=== PATIENT | male | born 1945 | race African-American/Black ===

== ENCOUNTER 2020-06-28 09:36 | Outpatient (REF) | payer MEDICARE, SELFPAY ==
[2020-06-28 10:28] LABS: MANUAL DIFF FLAG NO
[2020-06-28 10:42] LABS: Basophils Percent Auto 0.3 % (0-2); Eosinophils Absolute Auto 0.1 X10*3/uL (0.0-0.4); Eosinophils Percent Auto 1.8 % (0-4); Hematocrit 44.7 % (42-52); Hemoglobin 14.5 g/dl (14.0-18.0); Imm Gran Abs Auto 0.06 X10*3/uL (0.00-0.03); Imm Gran Pct Auto 0.8 % (0.0-0.4); Lymphocytes Absolute Auto 1.6 X10*3/uL (1.2-4.9); Lymphocytes Percent Auto 22.3 % (20-40); Mean Corpuscular HGB Conc 32.4 g/dl (31.0-36.0); Mean Corpuscular Hemoglobin 28.3 pg (27.0-33.0); Mean Corpuscular Volume 87.1 fL (80-98); Mean Platelet Volume 10.3 fL (9.4-12.4); Monocytes Absolute Auto 0.8 X10*3/uL (0.1-1.2); Monocytes Percent Auto 10.3 % (2-11); Neutrophils Absolute Auto 4.7 X10*3/uL (2.0-8.3); Neutrophils Percent Auto 64.5 % (45-73); Platelet Count 173 X10*3/uL (160-400); Red Blood Count 5.13 X10*6/uL (4.60-5.80); Red Cell Distribution Width 14.2 % (11.0-16.0); White Blood Count 7.4 X10*3/uL (4.8-10.8)
[2020-06-28 11:01] LABS: Glucose Urine UA NEG (NEG); Leukocyte Esterase Urine NEG (NEG); Nitrite Urine NEG (NEG); PH 6.5 (5.0-8.0); Urine Blood TRACE (NEG); Urine Ketones NEG (NEG); Urine Protein NEG (NEG-TRACE)
[2020-06-28 11:08] LABS: Appearance Urine CLEAR; Color Urine YELLOW
[2020-06-28 11:26] LABS: Squamous Epithelial Cell Urine TRACE /LPF; WBC Urine 0 /HPF (0-4)
[2020-06-28 11:29] LABS: Alanine Aminotransferase 20 U/L (0-40); Albumin Level 4.3 g/dL (3.5-5.0); Alkaline Phosphatase 71 U/L (39-117); Anion Gap 11 (12-20); Aspartate Amino Transferase 14 U/L (5-37); Bilirubin Total 1.4 mg/dL (0.0-1.0); Blood Urea Nitrogen 13 mg/dL (9-16); Calcium 9.5 mg/dL (8.4-10.2); Carbon Dioxide 27 mmol/L (22-29); Chloride 109 mmol/L (96-108); Cholesterol 155 mg/dL; Estimated Glomerular Filt Rate > 60; Glucose Fasting 173 mg/dL (60-99); HDL Cholesterol 45 mg/dL; LDL Cholesterol Calculated 94 mg/dl; Potassium 4.3 mmol/L (3.3-5.1); Sodium 143 mmol/L (135-145); Total Protein 7.2 g/dL (6.5-8.0); Triglycerides 84 mg/dL
[2020-06-28 11:55] LABS: Estimated Average Glucose 169 mg/dL; Hemoglobin A1c % 7.5 %
[2020-06-28 11:57] LABS: Creatinine Urine 163.22 mg/dL; Microalbum/Creatinine Ratio Ur 8.5 ug/mg cr
== END 2020-06-28 09:37 | disposition home or self-care (01) ==
LOC: HO.LNP 09:36
PROVIDERS: PCP Internal Medicine; Visit Provider Internal Medicine
DX: Z00.00 Encounter for general adult medical examination without abnormal findings (principal); I10 Essential (primary) hypertension; E11.9 Type 2 diabetes mellitus without complications; D50.9 Iron deficiency anemia, unspecified
CPT/HCPCS: 80053; 80061; 81001; 81003; 82043; 83036; 84153; 85025

== ENCOUNTER 2020-08-14 10:25 | Outpatient (REF) | payer MEDICARE, SELFPAY ==
--- NOTE | ~2020-08-14 | US_ITS ---
EXAMINATION: US RETROPERITONEAL LIMITED (RENAL ONLY) CLINICAL INFORMATION: Kidney cyst. COMPARISON: CT abdomen pelvis 03/17/2017. Ultrasound abdomen 02/17/2017 and ultrasound renal 08/21/2016. TECHNIQUE: Real-time imaging of the kidneys. FINDINGS: RIGHT KIDNEY: 11.5 x 6.01 x 5.2 cm (SAG x AP x TRV). The kidney is normal in size, contour, and echogenicity. Renal cortical thickness is normal. No calculi or focal parenchymal lesions. No hydronephrosis. LEFT KIDNEY: 11.7 x 6.6 x 4.6 cm (SAG x AP x TRV). The kidney is normal in size, contour, and echogenicity. Renal cortical thickness is normal. There are 3 left renal simple cysts appreciated by ultrasound, measuring 4.1 x 3.7 x 3.9 cm in the upper pole, 1.1 x 1.2 x 1.4 cm in the midpole and 1.7 x 1 x 1.6 cm in the lower pole. No renal calculi or hydronephrosis. US/US renal BI IMPRESSION: Left renal simple cysts. Normal right kidney.
== END 2020-08-14 10:26 | disposition home or self-care (01) ==
LOC: HO.US 10:25
PROVIDERS: PCP Internal Medicine; Visit Provider Internal Medicine
DX: N28.1 Cyst of kidney, acquired (principal)
CPT/HCPCS: 76775

== ENCOUNTER 2020-09-12 07:51 | Outpatient (REF) | payer MEDICARE, SELFPAY ==
--- NOTE | ~2020-09-12 | US_ITS ---
EXAMINATION: US ABDOMEN COMPLETE CLINICAL INFORMATION: Liver fibrosis, hepatitis C. COMPARISON: Bilateral renal ultrasound dated 08/14/2020. CT abdomen and pelvis without and with contrast dated 03/17/2017. Ultrasound abdomen complete dated 02/17/2017. TECHNIQUE: Real-time imaging of the abdominal viscera. FINDINGS: PANCREAS: Normal. ABDOMINAL AORTA: The proximal and distal segments are normal in caliber. INFERIOR VENA CAVA: Visualized portions are normal. LIVER: The liver is normal in size. The liver contour is normal. The liver is increased in echogenicity. No focal hepatic lesion. There is no intrahepatic biliary duct dilatation seen. GALLBLADDER: The gallbladder is physiologically distended. Multiple mobile gallstones are present. No evidence of gallbladder wall thickening or pericholecystic fluid. COMMON BILE DUCT: Normal in caliber measuring 0.3 cm in diameter. RIGHT KIDNEY: Normal. No hydronephrosis. No renal calculi or focal parenchymal lesions. The kidney measures 11.3 cm in maximum dimension. LEFT KIDNEY: There is an anechoic cyst in the upper pole measuring 4.4 x 3.7 x 3.7 cm, complex cyst midpole measuring 4.4 x 4.9 x 5.0 cm and midpole measuring 1.3 x 1.2 x 1.1 cm. No hydronephrosis or renal calculi. The kidney measures 13.1 cm in maximum dimension. SPLEEN: There is an accessory splenule measuring 2.4 x 2.3 x 2.2 cm. The spleen measures 10.6 cm in maximum dimension. FREE FLUID: None. US/US abdomen complete IMPRESSION: Cholelithiasis. Left renal simple and complex cysts. No echogenic renal calculi or hydronephrosis. Mild hepatic steatosis. Small accessory splenule at the splenic hilum.
[2020-09-13 13:20] LABS: Alpha Fetoprotein 3.7 ng/mL (<6.1)
[2020-09-15 15:36] LABS: HCV Log PCR <1.18 NOT DETECTED Log IU/mL (NOT DETECTED); HepC Viral Load <15 NOT DETECTED IU/mL (NOT DETECTED)
== END 2020-09-12 07:52 | disposition home or self-care (01) ==
LOC: HO.US 07:51
PROVIDERS: Visit Provider Internal Medicine
DX: K74.00 Hepatic fibrosis, unspecified (principal); Z86.19 Personal history of other infectious and parasitic diseases
CPT/HCPCS: 36415; 76700; 82105; 85610; 87522

== ENCOUNTER 2020-09-24 08:46 | Day surgery (SDC) | payer MEDICARE, SELFPAY ==
[2020-09-17 09:50] VITALS: BMI 38.1
[2020-09-24 09:00] VITALS: BP 165/94; PULSE 79; RESP 18; TEMP 36.7; O2SAT 98
[2020-09-24 09:11] VITALS: BMI 36.1
[2020-09-24 09:29] LABS: Glucose, Whole Blood 152 mg/dL (60-115)
--- NOTE | 2020-09-24 09:42 | P.CONAN_ITS ---
[facility] Past Medical History Medical History (Updated 09/17/20 @ 09:50 by Montserrat Echeverria) Diabetes Hepatitis C HTN (hypertension) Liver fibrosis Surgical History Surgical History (Updated 09/17/20 @ 09:51 by Montserrat Echeverria) H/O colonoscopy History of esophagogastroduodenoscopy (EGD) History of total left knee replacement Hx of cataract extraction Hx of rotator cuff surgery Social History Social History Advance Directives: No Advance Directives Information Provided: Yes Meds Allergies Allergy/AdvReac Type Severity Reaction Status Date / Time No Known Allergies Allergy Unverified 10/27/19 16:53 [No Known Allergies*] Active Medications: Current Medications Generic Name Dose Route Start Last Admin Trade Name Freq PRN Reason Stop Dose Admin Sodium Biphosphate/Sodium Phosphate 133 ml 09/24/20 08:48 Sodium Phosphate,Dyer-Dibasic 133 Ml Enema NE ONCE PRN Poor Colonoscopy Prep Results Home Medications Medication Instructions Recorded Confirmed Last Taken Type brimonidine 0.2 % eye drops 1 drp OPHTHALMIC (EYE) BID 09/17/20 09/17/20 Unknown History metformin 500 mg tablet 1 tab PO TID 09/17/20 09/17/20 Unknown History valsartan 320 1 tab PO DAILY 09/17/20 09/17/20 Unknown History mg-hydrochlorothiazide 12.5 mg tablet Exam Exam Date and Time: September 24, 202042 Height,Weight and Vital Signs: Height 6 ft 5 in Weight 138.346 kg Last Vital Signs Temp 98.1 F 09/24/20 09:00 Pulse 79 09/24/20 09:00 Resp 18 09/24/20 09:00 BP 165/94 H 09/24/20 09:00 Pulse Ox 98 09/24/20 09:00 Pertinent Lab Results Pertinent Lab Results: Laboratory Tests 09/24/20 09:10 POC Glucose 152 H Airway Heart: RRR Lungs: CTA
[2020-09-24] MEDS: Lactated Ringers 1,000 ML 50 ML IVCONT (09:43)
[2020-09-24 11:31] VITALS: BP 99/55; PULSE 70; RESP 16; TEMP 36.7; O2SAT 98
--- NOTE | 2020-09-24 11:33 | P.BOP_ITS ---
Brief Operative Note Date of Service: 09/24/20 Pre-op diagnosis: Screening Post-op diagnosis: other (Colon polyps) Procedure: Colonoscopy to the cecum with snare polypectomy, and bx/removal of polyp Surgeon: Cooper Stark Anesthesia: MAC Was an Investment Underwriter used for this Procedure?: No Estimated blood loss (mL): 3.0 Pathology: other (A. Cecal polyps B. Ascending colon polyp C. Transverse colon polyps D. Polyp at 50cm) Condition: stable Disposition: PACU
[2020-09-24 11:36] VITALS: BP 114/73; PULSE 74; RESP 16; TEMP 36.8; O2SAT 98
[2020-09-24 11:41] VITALS: BP 127/84; PULSE 76; RESP 16; TEMP 36.8; O2SAT 98
--- NOTE | 2020-09-24 13:48 | OP_ITS ---
SURGEON: Cooper Stark MD INDICATIONS: The patient presents for evaluation of colorectal cancer screening and personal history of tubular adenoma of the colon. Full consent has been obtained from him for this, including risks of bleeding and perforation. PREOPERATIVE DIAGNOSIS: POSTOPERATIVE DIAGNOSIS: PROCEDURE PERFORMED: Colonoscopy to cecum and terminal ileum with snare polypectomy, and biopsy and removal of polyp. ESTIMATED BLOOD LOSS: COMPLICATIONS: ANESTHESIA: Monitored anesthesia care. ASSISTANTS: SPECIMENS: PREOPERATIVE DIAGNOSES: Colorectal cancer screening and personal history of tubular adenoma of the colon. POSTOPERATIVE DIAGNOSES: Colorectal cancer screening and personal history of tubular adenoma of the colon, colon polyps, diverticulosis, and internal hemorrhoids. DESCRIPTION OF PROCEDURE: The patient was placed in the left lateral decubitus position. The digital rectal exam revealed no abnormalities. The Olympus video pediatric colonoscope was entered into the rectum and advanced easily to the cecum. Once in the cecum, I did identify cecal pouch with appendiceal orifice and a normal-appearing ileocecal valve. The terminal ileum was cannulated and appeared normal. The scope was withdrawn back in the colon. The entire cecum was well visualized. In the cecum, were 2 approximately 8 to 10 mm polyps, which were each snared and recovered by suction. The polypectomy sites appeared clean, without any sign of residual polyp nor bleeding. Also, in the cecum, was a 3 mm polyp, which was biopsied and completely removed with cold biopsy forceps and placed in the same container as the other 2 larger polyps. The scope was then slowly withdrawn assessing all mucosal surfaces carefully. Preparation was excellent. In the ascending colon, transverse colon, and at 50 cm, were approximately 8 to 10 mm polyps, which were each snared and recovered by suction. All of the polypectomy sites appeared clean, without any sign of residual polyp nor bleeding. I did not visualize any other polyps, colitis, nor angiodysplasia. There was a mild amount of sigmoid diverticulosis. In the rectum, scope was retroflexed visualizing small internal hemorrhoids, but no other pathology. The rectal mucosa appeared normal. The scope was straightened out and withdrawn from the patient. He tolerated the procedure well and was returned to the recovery area in stable condition. IMPRESSION: 1. Colon polyps, status post snare polypectomy, and biopsy and removal. 2. Diverticulosis. 3. Internal hemorrhoids. PLAN: The results of the pathology will be checked. I would recommend a repeat colonoscopy in 5 years for further screening. He was advised not to use any aspirin nor NSAIDs for 1 week. I did recommend he see me in 1 year for followup office visit in regard to the previous history of hepatitis C. MD EVA Santiago/EFRAÍN / [phone]
== END 2020-09-24 12:19 | disposition home or self-care (01) ==
PROVIDERS: PCP Internal Medicine; Visit Provider Internal Medicine
PROC: 0DJD8ZZ Inspection of Lower Intestinal Tract, Via Natural or Artificial Opening Endoscopic (ICD-10-PCS; CPT 45378; principal; 2020-09-24 10:10)
DX: Z12.11 Encounter for screening for malignant neoplasm of colon (principal); Z86.010 Personal history of colon polyps; D12.0 Benign neoplasm of cecum; D12.2 Benign neoplasm of ascending colon; D12.3 Benign neoplasm of transverse colon; D12.5 Benign neoplasm of sigmoid colon; K57.30 Diverticulosis of large intestine without perforation or abscess without bleeding; K64.8 Other hemorrhoids; K74.00 Hepatic fibrosis, unspecified; I10 Essential (primary) hypertension; E11.40 Type 2 diabetes mellitus with diabetic neuropathy, unspecified; Z79.84 Long term (current) use of oral hypoglycemic drugs; Z79.899 Other long term (current) drug therapy; Z86.19 Personal history of other infectious and parasitic diseases
CPT/HCPCS: 45385; 45380; 82947; 88305

== ENCOUNTER 2021-06-27 11:03 | Outpatient (REF) | payer MEDICARE, SELFPAY ==
[2021-06-27 11:08] LABS: MANUAL DIFF FLAG NO
[2021-06-27 11:47] LABS: Basophils Percent Auto 0.5 % (0-2); Eosinophils Absolute Auto 0.2 X10*3/uL (0.0-0.4); Eosinophils Percent Auto 1.8 % (0-4); Hematocrit 45.3 % (42.0-52.0); Hemoglobin 14.7 g/dl (14.0-18.0); Imm Gran Abs Auto 0.03 X10*3/uL (0.00-0.03); Imm Gran Pct Auto 0.4 % (0.0-0.4); Lymphocytes Percent Auto 24.2 % (20-40); Mean Corpuscular HGB Conc 32.5 g/dl (31.0-36.0); Mean Corpuscular Hemoglobin 28.5 pg (27.0-33.0); Mean Platelet Volume 10.2 fL (9.4-12.4); Monocytes Absolute Auto 0.5 X10*3/uL (0.1-1.2); Monocytes Percent Auto 6.2 % (2-11); Neutrophils Absolute Auto 5.6 x10*3/uL (2.0-8.3); Neutrophils Percent Auto 66.9 % (45-73); Platelet Count 211 X10*3/uL (160-400); Red Blood Count 5.15 X10*6/uL (4.60-5.80); Red Cell Distribution Width 14.2 % (11.0-16.0); White Blood Count 8.3 X10*3/uL (4.8-10.8)
[2021-06-27 11:56] LABS: Estimated Average Glucose 189 mg/dL; Hemoglobin A1c % 8.2 %
[2021-06-27 11:57] LABS: Appearance Urine CLEAR; Color Urine YELLOW; Glucose Urine UA NEG (NEG); Leukocyte Esterase Urine NEG (NEG); Nitrite Urine NEG (NEG); PH 5.5 (5.0-8.0); Specific Gravity - Urine >= 1.030 (1.005-1.025); Urine Blood 1+ (NEG); Urine Ketones NEG (NEG); Urine Protein NEG (NEG-TRACE)
[2021-06-27 12:01] LABS: Alanine Aminotransferase 15 U/L (0-40); Albumin Level 4.4 g/dL (3.5-5.0); Alkaline Phosphatase 71 U/L (39-117); Anion Gap 12 (12-20); Aspartate Amino Transferase 14 U/L (5-37); Bilirubin Total 2.1 mg/dL (0.0-1.0); Blood Urea Nitrogen 12 mg/dL (9-16); Calcium 9.6 mg/dL (8.4-10.2); Carbon Dioxide 26 mmol/L (22-29); Chloride 107 mmol/L (96-108); Estimated Glomerular Filt Rate > 60; Glucose Fasting 182 mg/dL (60-99); Iron 122 mcg/dL (45-160); Percent Iron Saturation 41 % (15-50); Sodium 141 mmol/L (135-145); Total Iron Binding Capacity 295 mcg/dL (228-428); Total Protein 7.5 g/dL (6.5-8.0); Unsaturated Iron Binding 173 ug/dL
[2021-06-27 12:14] LABS: Mucus Urine 2+ /LPF; PSA,Total (Free>4and<10) 0.28 ng/mL (0.00-4.00); Squamous Epithelial Cell Urine TRACE /LPF; WBC Urine 0-2 /HPF (0-4)
[2021-06-27 12:22] LABS: Creatinine Urine 217.74 mg/dL; Microalbum/Creatinine Ratio Ur 6.4 ug/mg cr
== END 2021-06-27 11:04 | disposition home or self-care (01) ==
LOC: HO.LNP 11:03
PROVIDERS: Visit Provider Internal Medicine
DX: Z00.00 Encounter for general adult medical examination without abnormal findings (principal); Z12.5 Encounter for screening for malignant neoplasm of prostate; E11.9 Type 2 diabetes mellitus without complications; I10 Essential (primary) hypertension; D50.9 Iron deficiency anemia, unspecified
CPT/HCPCS: 80053; 81001; 82043; 83036; 83540; 84153; 85025

== ENCOUNTER 2021-08-15 15:28 | Outpatient (REF) | payer MEDICARE, SELFPAY ==
[2021-08-15 15:36] LABS: Appearance Urine CLEAR; Color Urine YELLOW; Glucose Urine UA 100 MG/DL (NEG); Leukocyte Esterase Urine NEG (NEG); Nitrite Urine NEG (NEG); Specific Gravity - Urine 1.015 (1.005-1.025); Urine Blood NEG (NEG); Urine Ketones NEG (NEG); Urine Protein NEG (NEG-TRACE)
[2021-08-15 16:42] LABS: RBC Urine 0-2 /HPF (0); WBC Urine 0-2 /HPF (0-4)
[2021-08-15 16:43] LABS: Mucus Urine TRACE /LPF
== END 2021-08-15 15:29 | disposition home or self-care (01) ==
LOC: HO.LNP 15:28
PROVIDERS: Visit Provider Internal Medicine
DX: R31.9 Hematuria, unspecified (principal)
CPT/HCPCS: 81001

== ENCOUNTER 2021-09-24 11:30 | Outpatient (REF) | payer MEDICARE, SELFPAY ==
--- NOTE | ~2021-09-24 | US_ITS ---
EXAMINATION: US RETROPERITONEAL LIMITED (RENAL ONLY) CLINICAL INFORMATION: Renal cysts. COMPARISON: US abdomen complete 09/12/2020. US retroperitoneal limited (renal only) 08/14/2020. CT abdomen and pelvis without and with contrast 03/17/2017. TECHNIQUE: Real-time imaging of the kidneys. FINDINGS: RIGHT KIDNEY: 13.1 x 6.0 x 7.1 cm (SAG x AP x TRV). The kidney is normal in size, contour, and echogenicity. Renal cortical thickness is normal. No calculi or focal parenchymal lesions. No hydronephrosis. LEFT KIDNEY: 13.7 x 6.0 x 6.5 cm (SAG x AP x TRV). The kidney is normal in size, contour, and echogenicity. Renal cortical thickness is normal. No renal calculi or hydronephrosis. Left renal cysts are without significant change as follows. Upper pole exophytic simple cyst measures 4.3 x 4.3 x 4.0 cm. -Prior measurements ultrasound 2020, 4.4 x 3.7 x 3.7 cm. -Prior CT measurements 2018, 4.1 x 4.3 x 4.3 cm. Interpolar exophytic Bosniak 2 complicated cyst with fine avascular internal septation measures 4.7 x 4.5 x 4.1 cm. No interval solid component or septation thickening. No color flow. -Prior measurements ultrasound 2020, 4.4 x 4.9 x 5.0 cm. -Prior CT measurements 2018, 5.0 x 4.0 x 4.4 cm. Interpolar simple cyst 1.4 x 1.3 x 2.0 cm. -Prior measurements ultrasound 2020, 1.3 x 1.2 x 1.1 cm. -Prior CT measurements 2018, 0.9 x 0.9 x 1.4 cm. US/US renal BI IMPRESSION: Right: -No hydronephrosis, calculi, or parenchymal lesion. Left: -No hydronephrosis or calculi. -Left renal cysts are without significant change from prior studies.
== END 2021-09-24 11:31 | disposition home or self-care (01) ==
LOC: HO.HMGCX 11:30
PROVIDERS: PCP Internal Medicine; Visit Provider Internal Medicine
DX: N28.1 Cyst of kidney, acquired (principal)
CPT/HCPCS: 76775

== ENCOUNTER 2021-11-11 12:04 | Outpatient (REF) | payer MEDICARE, SELFPAY ==
[2021-11-11 12:33] LABS: Appearance Urine Clear; Color Urine Yellow; Glucose Urine UA Negative (Negative); Leukocyte Esterase Urine Negative (Negative); Nitrite Urine Negative (Negative); Urine Blood Negative (Negative); Urine Ketones Negative (Negative); Urine Protein Negative (Neg-Trace)
[2021-11-11 12:41] LABS: Bacteria Urine None Seen (None Seen); Hyaline Casts Urine 0-2 /LPF (0-2); RBC Urine 0-2 /HPF (0-2); Squamous Epithelial Cell Urine 0-2 /HPF (0-2); WBC Urine 0-5 /HPF (0-5)
== END 2021-11-11 12:05 | disposition home or self-care (01) ==
LOC: HO.LNP 12:04
PROVIDERS: Visit Provider Internal Medicine
DX: R31.9 Hematuria, unspecified (principal)
CPT/HCPCS: 81001

== ENCOUNTER 2022-04-14 09:00 | Outpatient (RCR) | payer MEDICARE, SELFPAY ==
[2022-04-11 09:08] VITALS: BP 150/90
== END 2022-04-24 09:48 | disposition home or self-care (01) ==
LOC: HO.PT 09:00
PROVIDERS: PCP Internal Medicine; Visit Provider Internal Medicine
DX: H83.03 Labyrinthitis, bilateral (principal)
CPT/HCPCS: 95992; 97161

== ENCOUNTER 2022-08-18 10:51 | Outpatient (REF) | payer MEDICARE, SELFPAY | END 2022-08-18 10:52 | disposition home or self-care (01) | LOC: HO.LNP 10:51 | PROVIDERS: Visit Provider Internal Medicine | DX: Z00.00 Encounter for general adult medical examination without abnormal findings (principal); Z12.5 Encounter for screening for malignant neoplasm of prostate; E11.9 Type 2 diabetes mellitus without complications; I10 Essential (primary) hypertension; D50.9 Iron deficiency anemia, unspecified | CPT/HCPCS: 80053; 80061; 81001; 82043; 83036; 83540; 84153; 85025 ==

== ENCOUNTER 2022-09-12 12:50 | Outpatient (REF) | payer MEDICARE, SELFPAY ==
--- NOTE | ~2022-09-12 | US_ITS ---
EXAMINATION: US RETROPERITONEAL LIMITED (RENAL ONLY) CLINICAL INFORMATION: Acquired left renal cyst. COMPARISON: Renal ultrasound 09/24/2021. Ultrasound abdomen complete 09/12/2020. CT abdomen and pelvis MRI 07/29/2017. TECHNIQUE: Real-time imaging of the kidneys. FINDINGS: RIGHT KIDNEY: 11.8 x 5.6 x 5.0 cm (SAG x AP x TRV). The kidney is normal in size, contour, and echogenicity. Renal cortical thickness is normal. No calculi or focal parenchymal lesions. No hydronephrosis. LEFT KIDNEY: 13.0 x 5.5 x 6.6 cm (SAG x AP x TRV). The kidney is normal in size, contour, and echogenicity. Renal cortical thickness is normal. No renal calculi or hydronephrosis. Redemonstration of multiple left-sided renal cysts. In the upper pole simple appearing renal cyst measuring 5.2 x 4.2 x 4.1 cm, not requiring follow-up. Cystic focus in the left renal lower pole with fine avascular internal septation measures 4.1 x 3.5 x 4.2 cm previously measuring up to 4.7 cm. Simple appearing cystic focus in the interpolar region measures 1.5 x 1.3 x 1.5 cm, not requiring follow-up. Additional focus noted in the left renal interpolar region measuring 2.5 x 2.1 x 2.2 cm possibly representing a solid focus versus hyperechoic cyst, not definitively visualized on prior imaging. US/US retroperitoneal limited IMPRESSION: 1. No nephrolithiasis or hydronephrosis. 2. Multiple left-sided renal cysts the largest appearing in the lower pole measuring up to 4.2 cm, previously measuring up to 4.7 cm. Relatively stable given differences in measurement technique 3. Additional focus noted in the left renal interpolar region measuring 2.5 x 2.1 x 2.2 cm possibly representing a solid focus versus hyperechoic cyst, not definitively visualized on prior imaging. If clinically warranted this can be further evaluated with MRI.
== END 2022-09-12 12:51 | disposition home or self-care (01) ==
LOC: HO.US 12:50
PROVIDERS: PCP Internal Medicine; Visit Provider Internal Medicine
DX: N28.1 Cyst of kidney, acquired (principal)
CPT/HCPCS: 76775

== ENCOUNTER 2023-02-27 10:53 | Inpatient (IN) | payer MEDICARE, SELFPAY ==
--- NOTE | 2023-02-27 | ECG_ITS ---
Test Reason : MEDICAL CLEARANCE Blood Pressure : / mmHG Vent. Rate : 081 BPM Atrial Rate : 081 BPM P-R Int : 164 ms QRS Dur : 098 ms QT Int : 404 ms P-R-T Axes : 060 026 055 degrees QTc Int : 469 ms Normal sinus rhythm Normal ECG When compared with ECG of 14-DEC-2014 10:53, Premature atrial complexes are no longer Present Referred By: Mirian Gonsalez Electronically Signed By:ADAN CORTES
--- NOTE | ~2023-02-27 | XR_ITS ---
EXAMINATION: XR HIP, LEFT CLINICAL INFORMATION: Left hip/groin pain following a fall. Foreshortening. COMPARISON: Pelvic radiograph dated 09/11/2014. TECHNIQUE: AP view the pelvis as well as AP and frog-leg lateral views of the left hip. FINDINGS: No displaced fracture. No dislocation. Mild to moderate bilateral hip joint space narrowing with marginal osteophytes. Mild degenerative arthritis at the symphysis pubis. No concerning lytic or blastic osseous lesion. No evidence of avascular necrosis. Atherosclerotic calcifications. XR/XR hip LT w [id number] IMPRESSION: 1. No displaced fracture or dislocation. 2. Mild to moderate bilateral hip osteoarthritis.
--- NOTE | ~2023-02-27 | XR_ITS ---
EXAMINATION: XR KNEE, LEFT CLINICAL INFORMATION: Fall. Pain. Prosthesis. COMPARISON: Left knee radiographs dated 09/11/2014. TECHNIQUE: AP and lateral views of the left knee. FINDINGS: Displaced and slightly comminuted fracture through the distal femoral metaphysis. There is a dominant oblique component to the fracture with a resultant posterior butterfly fracture fragment which measures up to 5.5 cm in craniocaudal dimension. There is anterior and distal displacement of the proximal fracture fragment with cortical overlap of the fracture fragments measuring up to 8.3 cm in craniocaudal dimension. Anterior displacement measures up to 4.1 cm in AP dimension. No extension to the hardware surface. No patellar dislocation. No concerning lytic or blastic osseous lesion. No hardware fracture. No perihardware lucency or evidence of loosening. Small joint effusion. XR/XR knee LT 2V IMPRESSION: Prominently displaced and slightly comminuted distal femoral fracture with a dominant oblique component to the fracture. Anterior and distal displacement of the proximal femur.
--- NOTE | ~2023-02-27 | FL_ITS ---
EXAMINATION: XR FLUOROSCOPY WITH IMAGES CLINICAL INFORMATION: IM nail left femur fracture. COMPARISON: Left knee 02/27/2023. TECHNIQUE: Fluoroscopy Supervised By: Dr. Marc Cheng. Fluoroscopy Time: 1.6 minutes. Cumulative Dose: 46.2 mGy. DAP: 0.486 mGym2. Images: 8. FINDINGS: Imaging demonstrates ORIF with placement of intramedullary yuliana and screws in the distal femur. A knee prosthesis is in place. FL/FL guidance in OR IMPRESSION: Fluoroscopy and spot films provided during ORIF. Please see Dr. Marc Cheng's operative note for full details.
--- NOTE | 2023-02-27 11:08 | ED_ITS ---
HPI - Fall General Chief Complaint: Extremity Injury, Lower Stated Complaint: FALL L KNEE DEFORMITY Time Seen by Provider: 02/27/23 11:07 Source: patient, EMS, RN notes reviewed and old records reviewed Mode of arrival: EMS History of Present Illness HPI Narrative: 77-year-old male with a past medical history of HTN, diabetes, hepatitis-C, presenting to the ED via EMS complaining of left knee and hip pain s/p mechanical trip and fall [employer]. Patient states he tripped and fell outside in the snow, left leg bent behind him, has been nonambulatory since incident. Denies head trauma or LOC. Denies taking anticoagulation. Denies numbness/tingling, neck/back pain or headache. Denies symptoms prior to fall MD complaint: fall Related Data Home Medications Medication Instructions Recorded Confirmed brimonidine 0.2 % eye drops 1 drp ophthalmic (eye) BID 09/17/20 09/17/20 metformin 500 mg tablet 1 tab PO TID 09/17/20 09/17/20 valsartan 320 1 tab PO DAILY 09/17/20 09/17/20 mg-hydrochlorothiazide 12.5 mg tablet Allergies Allergy/AdvReac Type Severity Reaction Status Date / Time No Known Allergies Allergy Unverified 10/27/19 16:53 [No Known Allergies*] Review of Systems 2 Review of Systems: Constitutional: No Fever, No Chills ENT/Mouth: No Ear Pain, No Nasal Congestion, No sore throat, No Rhinorrhea, No Swallowing Difficulty Cardiovascular: No Chest Pain, No SOB Respiratory: No Cough, No Sputum Gastrointestinal: No Nausea, No Vomiting, No Diarrhea, No Constipation, No Abdominal pain Genitourinary: No Dysuria, No Urinary Frequency, No Hematuria Musculoskeletal: +joint pain, No Myalgias, + Joint Swelling Skin: No Skin Lesions, No rash Neuro: No Weakness, No Numbness, No Paresthesias, No ROMERO, No LOC Yes all other systems are reviewed and are negative Constitutional: Constitutional: Reports as per [facility] Past Medical History Attestation statement: The following information was validated with the patient. Source: old records reviewed Onset Date is defined in the Problem List Problems that require an onset date and time if occurred within 24 hrs of arrival to the ED Aortic Dissection and Rupture; Neurologic impairment; Cardiopulmonary Arrest; Endotracheal Intubation; Insertion or Replacement of Mechanical Circulatory Assist Device Medical History HTN (hypertension) Diabetes Liver fibrosis Hepatitis C Surgical History Hx of cataract extraction History of esophagogastroduodenoscopy (EGD) H/O colonoscopy History of total left knee replacement Hx of rotator cuff surgery Social History Social History Advance Directives: Yes Advance Directives Information Provided: No Advance Directives on File: No Physical Exam 2 Vital Signs: Vital Signs: Last Vital Signs Temp 97.6 F 02/27/23 11:23 Pulse 90 02/27/23 11:23 Resp 24 H 02/27/23 12:00 BP 143/120 H 02/27/23 11:23 Pulse Ox 98 02/27/23 11:23 O2 Del Method Room Air 02/27/23 11:23 BMI result Body Mass Index 33.0 Const: General: cooperative, healthy appearing and no acute distress O rientation/consciousness: patient oriented x3 Limitations: no limitations HEENT: Head: Yes normal to inspection and Yes atraumatic Ears: hearing grossly normal bilaterally General nose exam: Normal external nose present Face and sinus: Yes normal facial exam Eyes: General: appearance normal, both eyes and all related structures EOM: EOMs intact bilaterally Neck: Neck: Yes normal visual inspection and Yes no meningeal signs Resp: Effort & Inspection: normal respiratory effort and no respiratory distress Cardio: Rate: regular rate Back/Spine/Pelvis: Other: No midline cervical/thoracic/lumbar spinous tenderness/step-off or deformity Skin: Rashes: no rashes Wounds: no wounds Neuro: General: patient oriented x3, tone normal and no meningeal signs C ranial nerves: Yes CN's II-XII intact bilaterally Gait exam (Neuro): Normal gait present Extrem: Other: pelvis stable, +Left hip & left groin w/+ttp, limited ROM. +LLE shortened and rotated. + appreciable deformity to left knee wit hout tenderness. Limited ROM. Neurovascularly intact distally General: Yes normal to inspection Course Course Course Narrative: -1159--distal femur fracture appreciated on x-ray, orthopedic PA Jhoan consulted > 1205-- recommended medicine admit. Orthopedics evaluated patient in the ED > patient admitted to hospitalist for further management Medications Administered Discontinued Medications Generic Name Dose Route Start Last Admin Trade Name Salome PRN Reason Stop Dose Admin Morphine Sulfate 4 mg 02/27/23 11:55 02/27/23 12:00 Morphine Sulfate 4 Mg/Ml Cartridge IVPUSH 02/27/23 11:56 4 mg ONCE ONE Administration Protocol Ondansetron HCl 4 mg 02/27/23 11:55 02/27/23 12:00 Ondansetron Hcl 4 Mg/2 Ml Vial IVPUSH 02/27/23 11:56 4 mg ONCE ONE Administration Medical Decision Making Medical Decision Making MDM Narrative: 77-year-old male with a past medical history of HTN, diabetes, hepatitis-C, presenting to the ED via EMS complaining of left knee and hip pain s/p mechanical trip and fall [employer]. On exam hypertensive likely from pain, NAD, nontoxic appearing, physical exam as noted above. Concern for hip/pelvic or knee fracture versus dislocation. No evidence of infection. Unlikely ICH/SAH Plan: X-rays Please refer to course for remaining clinical decision making, interpretation of labs/imaging results, and discussions with consultants and/or family members. Differential Diagnosis Differential Diagnoses: The differential diagnosis associated with the presentation includes As above Consult Healthcare Provider Management of the patient was discussed with: Hospitalist and Service Trainer (Orthopedics) Lab Data [facility] Lab Attestation statement: I reviewed the patient's lab results. 02/27/23 12:06 02/27/23 12:06 Labs: Lab Results 02/27/23 Range/Units 12:06 WBC 11.0 H (4.8-10.8) X10*3/uL RBC 5.09 (4.60-5.80) X10*6/uL Hgb 14.5 (14.0-18.0) g/dl Hct 43.5 (42.0-52.0) % MCV 85.5 (80.0-98.0) fL MCH 28.5 (27.0-33.0) pg MCHC 33.3 (31.0-36.0) g/dl RDW 14.0 (11.0-16.0) % Plt Count 166 (160-400) X10*3/uL MPV 9.7 (9.4-12.4) fL Immature Gran % (Auto) 0.4 (0.0-0.4) % Neut % (Auto) 79.3 H (45-73) % Lymph % (Auto) 15.5 L (20-40) % [place] % (Auto) 3.7 (2-11) % Eos % (Auto) 0.8 (0-4) % Baso % (Auto) 0.3 (0-2) % Lymph # (Auto) 1.7 (1.2-4.9) X10*3/uL [place] # (Auto) 0.4 (0.1-1.2) X10*3/uL Eos # (Auto) 0.1 (0.0-0.4) X10*3/uL Baso # (Auto) 0.0 (0.0-0.2) X10*3/uL Abs Immat Gran (auto) 0.04 H (0.00-0.03) X10*3/uL Absolute Neuts (auto) 8.7 H (2.0-8.3) x10*3/uL Absolute Nucleated RBC 0.000 (0.0-0.012) X10*3/uL Nucleated RBC % (auto) 0.0 (0.0-0.2) /100WBC Independent Interpretation I performed an independent interpretation of an: Plain X-Ray (My interpretation- distal femur fracture, displaced/angulated) Radiology Impression Discussion of test interpretation with radiology: I have reviewed the radiologist's reading. Independent Historian Clinical information obtained from an independent historian. History obtained from or confirmed by: EMS External Record Review External record reviewed: Inpatient record, Office record, Outpatient record, Prior outpatient labs, Prior outpatient radiology, Primary care record and Outside ED record Tests considered The following testing was considered but not selected: As above Prescription Management I considered prescription management with: Pain Medication Critical Care Time Critical Care Time Critical Care Time: Yes Total Critical Care Time: 35 Attestation: I have personally provided critical care time exclusive of time spent on separately billable procedures. Time includes review of lab data, radiology results, discussion with consultants, and monitoring for potential decompensation. Intervention performed as documented. Discharge Plan Discharge Clinical Impression: Fracture of distal end of femur Patient Disposition: Admitted As Inpatient
[2023-02-27 11:23] VITALS: BP 143/120; PULSE 90; RESP 18; TEMP 36.4; O2SAT 98; BMI 33.0
[2023-02-27 12:00] VITALS: RESP 24
[2023-02-27] MEDS: Morphine Sulfate 4 MG/ML CARTRIDGE IVPUSH ×3 (12:00→19:47)
[2023-02-27] MEDS: ondansetron HCL 4 MG/2 ML VIAL IVPUSH (12:00)
[2023-02-27 12:12] LABS: MANUAL DIFF FLAG NO
[2023-02-27 12:16] LABS: Basophils Percent Auto 0.3 % (0-2); Eosinophils Absolute Auto 0.1 X10*3/uL (0.0-0.4); Eosinophils Percent Auto 0.8 % (0-4); Hematocrit 43.5 % (42.0-52.0); Hemoglobin 14.5 g/dl (14.0-18.0); Imm Gran Abs Auto 0.04 X10*3/uL (0.00-0.03); Imm Gran Pct Auto 0.4 % (0.0-0.4); Lymphocytes Absolute Auto 1.7 X10*3/uL (1.2-4.9); Lymphocytes Percent Auto 15.5 % (20-40); Mean Corpuscular HGB Conc 33.3 g/dl (31.0-36.0); Mean Corpuscular Hemoglobin 28.5 pg (27.0-33.0); Mean Corpuscular Volume 85.5 fL (80.0-98.0); Mean Platelet Volume 9.7 fL (9.4-12.4); Monocytes Absolute Auto 0.4 X10*3/uL (0.1-1.2); Monocytes Percent Auto 3.7 % (2-11); Neutrophils Absolute Auto 8.7 x10*3/uL (2.0-8.3); Neutrophils Percent Auto 79.3 % (45-73); Platelet Count 166 X10*3/uL (160-400); Red Blood Count 5.09 X10*6/uL (4.60-5.80)
[2023-02-27 12:23] LABS: Prothrombin Time 11.6 SEC (11.1-13.3)
--- NOTE | 2023-02-27 12:44 | PM.IMHP ---
History of Present Illness Date of Service: 02/27/23 Attending physician on admission: Eduar Salazar Chief Complaint: Left knee pain after fall at home Pt is a 77-year-old male with a PMH significant for?HTN, non-insulin dependent diabetes type 2, hepatitis-C treated in 2016, and macular degeneration who presents to the ED for evaluation of left knee and hip pain after mechanical fall at home. Patient states that he was on his deck when he slipped and fell on the ice and snow. His leg when back behind him and he heard a ?pop? and then he fell. Denies head strike or loss of consciousness. No lightheadedness or dizziness. Patient was unable to stand up or bear weight on his leg so he crawled to the door to get to a found to call EMS. Patient denies any other acute medical complaints at this time. No chest pain/pressure, palpitations. Denies fever, chills, nausea, vomiting, abdominal pain. Denies right hip or leg pain. Of note, patient had left TKA with subsequent washout and revision. In the ED pt was tachypneic up to 24, and slightly hypertensive up to 143/120, otherwise vitals WNL. Labs were significant for wbc's 11.0, bilirubin 1.3, otherwise grossly unremarkable. X-ray of left knee official read pending, but shows obvious displaced, periprosthetic distal left femur fracture. Hip x-ray official read still pending, but shows no obvious osseous abnormality. EKG showed normal sinus rhythm without evidence of ST elevations or depressions. Pt was treated with ondansetron and morphine. Pt will be admitted to the hospital for treatment of displaced, periprosthetic distal left femur fracture with likely surgical procedure tomorrow. Review of Systems Review of Systems: Left hip and knee pain after mechanical fall at home Patient otherwise denies any acute medical complaints [facility] Medical History HTN (hypertension) Diabetes Liver fibrosis Hepatitis C Surgical History Hx of cataract extraction History of esophagogastroduodenoscopy (EGD) H/O colonoscopy History of total left knee replacement Hx of rotator cuff surgery Social History Advance Directives: Yes Advance Directives Information Provided: No Advance Directives on File: No Meds Allergies Allergy/AdvReac Type Severity Reaction Status Date / Time No Known Allergies Allergy Unverified 10/27/19 16:53 [No Known Allergies*] Home Medications Medication Instructions Recorded Confirmed Last Taken Type brimonidine 0.2 % eye drops 1 drp ophthalmic (eye) BID 09/17/20 02/27/23 Unknown History metformin 500 mg tablet 1 tab PO TID 09/17/20 02/27/23 Unknown History valsartan 320 1 tab PO DAILY 09/17/20 02/27/23 Unknown History mg-hydrochlorothiazide 12.5 mg tablet Physical Exam Vital Signs and Narrative: Vital Signs: Last Vital Signs Temp 97.6 F 02/27/23 11:23 Pulse 90 02/27/23 11:23 Resp 24 H 02/27/23 12:00 BP 143/120 H 02/27/23 11:23 Pulse Ox 98 02/27/23 11:23 O2 Del Method Room Air 02/27/23 11:23 BMI result Body Mass Index 33.0 Constitutional: Alert, in no acute distress. Mental Status: Oriented to person, place and time. Eyes: Pupils are equal, round, and reactive to light. Ear, Nose, and Throat: Oropharynx clear, mucous membranes moist. Ears and nose without deformities. Trachea midline. Respiratory: Clear to auscultation bilaterally. No wheezing, rales, or rhonchi. Cardiovascular: S1, S2 regular. No murmurs, rubs, or gallops. Gastrointestinal: Abdomen soft, non-tender, non-distended. Normal bowel sounds. Neurologic: Cranial nerves II-XII are grossly intact bilaterally. No focal neurological deficits. Moves all extremities spontaneously. Skin: Warm, dry. Musculoskeletal: No cyanosis or clubbing. Extremities: No edema. Left knee tenderness and swelling. Psychiatric: Normal mood and affect. Results Labs 02/27/23 12:06 02/27/23 12:28 Labs: Laboratory Results - last 24 hr 02/27/23 12:06 MCV 85.5 MCH 28.5 MCHC 33.3 RDW 14.0 Plt Count 166 MPV 9.7 Immature Gran % (Auto) 0.4 Neut % (Auto) 79.3 H Lymph % (Auto) 15.5 L [place] % (Auto) 3.7 Eos % (Auto) 0.8 Baso % (Auto) 0.3 Lymph # (Auto) 1.7 [place] # (Auto) 0.4 Eos # (Auto) 0.1 Baso # (Auto) 0.0 Abs Immat Gran (auto) 0.04 H Absolute Neuts (auto) 8.7 H Absolute Nucleated RBC 0.000 Nucleated RBC % (auto) 0.0 PT 11.6 INR 1.0 Assessment and Plan (1) Fracture of distal end of femur: Qualifiers: Encounter type: initial encounter Fracture morphology: other fracture Fracture type: closed Laterality: left Qualified Code(s): S72.492A - Other fracture of lower end of left femur, initial encounter for closed fracture Status: Acute Plan Pt is a 77-year-old male with a PMH significant for?HTN, non-insulin dependent diabetes type 2, hepatitis-C treated in 2016, and macular degeneration who presents to the ED for evaluation of left knee and hip pain after mechanical fall at home. Pt will be admitted to the hospital for treatment of displaced, periprosthetic distal left femur fracture with likely surgical procedure tomorrow. Left distal displaced and periprosthetic femur fracture S/P mechanical fall at home Ortho consulted, plan on performing surgery in the morning Analgesics for pain management NPO diet after midnight Pneumatic boots for DVT prophylaxis Patient is at intermediate risk for planned procedure given age and comorbidities RCRI score 0, no significant known cardiac history; EKG showing normal sinus rhythm without ischemic changes No further workup indicated at this time Tgp-gjyidny-vaxcmogle diabetes type [address] on sliding scale insulin Diabetic diet HTN Continue home meds Degeneration Continue brimonidine eye drops Full Code Attending:?Dr. Yu DVT Prophylaxis: Pneumatic boots d/t impending surgery Pt will require a hospitalization of at least two nights for treatment of?displaced, periprosthetic distal left femur fracture with likely surgical procedure tomorrow. Quality Stroke Does the patient have a stroke diagnosis?: No VTE Prior VTE?: No VTE Risk Level:: Medical - moderate - high VTE Device Contraindication: N/A - Device Ordered VTE Drug Contraindication: Treatment Not Indicated
--- NOTE | 2023-02-27 12:56 | MHC.CM.ED ---
Received consult for assessment of d/c needs: Pt will be admitted for surgical repair of femur fracture: provider concerned w/pts home situation: Met with pt and spouse to review d/c needs. Pt is independent, has no services or DME, drives and states recent service initiation w/[employer] and [employer]. States he's worried about leaving his spouse who has early onset memory issues. Pt states spouse can drive, complete all ADL's without cueing and prepares meals - spouse in fact drove self here following the ambulance transporting pt. Pt offered private pay services and resource information but declined. Stated spouse has a son but he lives in [place] and his children are not in the area as well. Pt will likely require STR following surgical repair and will be followed by INPT CM. No further needs yet identified.
[2023-02-27 13:03] LABS: Alanine Aminotransferase 12 U/L (0-40); Albumin Level 4.2 g/dL (3.5-5.0); Alkaline Phosphatase 57 U/L (39-117); Anion Gap 15 (12-20); Aspartate Amino Transferase 14 U/L (5-37); Bilirubin Direct 0.5 mg/dL (0.0-0.5); Bilirubin Total 1.3 mg/dL (0.0-1.0); Blood Urea Nitrogen 13 mg/dL (9-16); Calcium 9.5 mg/dL (8.4-10.2); Carbon Dioxide 24 mmol/L (22-29); Chloride 108 mmol/L (96-108); Creatinine Clr Calc Pharmacy 98.2; Estimated Glomerular Filt Rate > 60; Glucose Random 137 mg/dL (60-115); Potassium 4.3 mmol/L (3.3-5.1); Sodium 143 mmol/L (135-145); Total Protein 7.1 g/dL (6.5-8.0)
[2023-02-27 13:04] LABS: Alanine Aminotransferase 13 U/L (0-40); Albumin Level 4.2 g/dL (3.5-5.0); Alkaline Phosphatase 57 U/L (39-117); Anion Gap 13 (12-20); Aspartate Amino Transferase 13 U/L (5-37); Bilirubin Direct 0.5 mg/dL (0.0-0.5); Bilirubin Total 1.3 mg/dL (0.0-1.0); Blood Urea Nitrogen 13 mg/dL (9-16); Calcium 9.5 mg/dL (8.4-10.2); Carbon Dioxide 24 mmol/L (22-29); Chloride 108 mmol/L (96-108); Creatinine Clr Calc Pharmacy 99.3; Estimated Glomerular Filt Rate > 60; Glucose Random 140 mg/dL (60-115); Potassium 4.2 mmol/L (3.3-5.1); Sodium 141 mmol/L (135-145); Total Protein 7.1 g/dL (6.5-8.0)
--- NOTE | 2023-02-27 13:12 | PHA.MEDREC ---
Pharmacy Consult ? Medication Reconciliation Pharmacy has completed the medication reconciliation.
--- NOTE | 2023-02-27 13:43 | P.CONOP_ITS ---
History of Present Illness HPI Consult date: 02/27/23 <Selena Dinh PA-C - Last Filed: 02/27/23 13:49> Chief complaint: Left periprosthetic femur fracture <Selena Dinh PA-C Last Filed: 02/27/23 13:49> Narrative: 77-year-old male with a past medical history of HTN, diabetes, hepatitis- C, was brought to the ED via EMS s/p mechanical trip and fall [employer]. He c/o left knee pain. Patient states he tripped and fell outside in the snow, left leg bent behind him, has been nonambulatory since incident. He has a LT TKA which was done about 5-6 years ago out in [place]. He states he was doing well up until this fall. He lives at home with his . He is independent with all activities. <Selena Dinh PA-C Last Filed: 02/27/23 13:49> Review of Systems 2 Review of Systems: per hpi <Selena Dinh PA-C - Last Filed: 02/27/23 13:49> PMFSH Past Medical History Medical History: Medical History HTN (hypertension) Diabetes Liver fibrosis Hepatitis C <Selena Dinh PA-C Last Filed: 02/27/23 13:49> Surgical History Surgical History: Surgical History Hx of cataract extraction History of esophagogastroduodenoscopy (EGD) H/O colonoscopy History of total left knee replacement Hx of rotator cuff surgery <Selena Dinh PA-C - Last Filed: 02/27/23 13:49> Social History Social History: Social History Household Members: Spouse Housing: House Do you presently have visiting nurse or other home services: No Patient Tobacco Use Status: Never used Tobacco Use of substances other than those prescribed or required for medical reasons: No Currently Displaying Signs/Symptoms of Drug Intoxication Withdrawal: No Have you been hit, kicked, punched, or otherwise hurt by someone within the past year? If so, by whom?: No Advance Directives: No Advance Directives Information Provided: No Advance Directives on File: No Do you have thoughts of harming others: None Do you have a plan to hurt others: No Plan Nutrition Risks: No Nutritional Risk service: No <Selena Dinh PA-C - Last Filed: 02/27/23 13:49> Meds Allergies/Adverse reactions: Allergies Allergy/AdvReac Type Severity Reaction Status Date / Time No Known Allergies Allergy Unverified 10/27/19 16:53 [No Known Allergies*] <YURI Ho Last Filed: 02/27/23 13:49> Active Medications: Current Medications Acetaminophen (Acetaminophen 325 Mg Tablet) 650 mg PO Q6H PRN PRN Reason: Pain, Mild (Pain Scale 1-3) Benzonatate (Benzonatate 100 Mg Capsule) 100 mg PO TID PRN PRN Reason: Cough Brimonidine Tartrate (Brimonidine Tartrate 0.2% Oph 5 Ml Bottle) 1 drop EYE- BOTH BID [facility] Valsartan 320 mg/ (Hydrochlorothiazide 12.5 mg) 0 mg PO DAILY [facility] Dextrose (Dextrose 50 % 25 Gm/50 Ml Syringe) 25 gm IVPUSH Q15M PRN; Protocol PRN Reason: per Hypoglycemia Standing Ord. Docusate Sodium (Docusate Sodium 100 Mg Capsule) 100 mg PO DAILY PRN PRN Reason: Constipation Glucose (Glucose Gel 15 Gm Gel..Gram.) 15 gm PO Q15M PRN; Protocol PRN Reason: per Hypoglycemia Standing Ord. Insulin Human Lispro (Insulin Lispro 100 Unit/Ml 3 Ml Vial) 0 unit SUBCUT QIDACHS [facility]; Protocol Melatonin (Melatonin 3 Mg Tablet) 6 mg PO BEDTIME PRN PRN Reason: Insomnia Morphine Sulfate (Morphine Sulfate 4 Mg/Ml Cartridge) 4 mg IVPUSH Q4H PRN; Protocol PRN Reason: Pain, Severe (Pain Scale 7-10) Ondansetron HCl (Ondansetron Hcl 4 Mg/2 Ml Vial) 4 mg IVPUSH Q8H PRN PRN Reason: Nausea and Vomiting Sodium Chloride (0.9 % Sodium Chloride Flush 3 Ml Syringe) 3 ml IVFLUSH QSHIFT [facility] <YURI Ho Last Filed: 02/27/23 13:49> Home medications: Home Medications Medication Instructions Recorded Confirmed Last Taken Type brimonidine 0.2 % eye drops 1 drp ophthalmic (eye) BID 09/17/20 02/27/23 Unknown History metformin 500 mg tablet 1 tab PO TID 09/17/20 02/27/23 Unknown History valsartan 320 1 tab PO DAILY 09/17/20 02/27/23 Unknown History mg-hydrochlorothiazide 12.5 mg tablet <Selena Dinh PA-C - Last Filed: 02/27/23 13:49> Physical Exam 2 Vital Signs: Vital Signs: Last Vital Signs Temp 97.6 F 02/27/23 11:23 Pulse 90 02/27/23 11:23 Resp 24 H 02/27/23 12:00 BP 143/120 H 02/27/23 11:23 Pulse Ox 98 02/27/23 11:23 O2 Del Method Room Air 02/27/23 11:23 BMI result Body Mass Index 33.0 <Selena Dinh PA-C - Last Filed: 02/27/23 13:49> Const: General: cooperative, healthy appearing, comfortable and no acute distress <Selena Dinh PA-C - Last Filed: 02/27/23 13:49> Extrem: Other: Left knee skin intact, surgical scar present. No open wounds. He has a palpable defect above the patellar region and tenderness over the fracture site. Leg is in extension. He can plantar and dorsi flex the ankle. NVI. <Selena Dinh PA-C - Last Filed: 02/27/23 13:49> Results Labs Result Diagrams: 02/27/23 12:06 02/27/23 12:28 <YURI Ho Last Filed: 02/27/23 13:49> Labs: Abnormal lab results 02/27/23 02/27/23 02/27/23 Range/Units 12:06 12:28 12:28 WBC 11.0 H (4.8-10.8) X10*3/uL Neut % (Auto) 79.3 H (45-73) % Lymph % (Auto) 15.5 L (20-40) % Abs Immat Gran (auto) 0.04 H (0.00-0.03) X10*3/uL Absolute Neuts (auto) 8.7 H (2.0-8.3) x10*3/uL Random Glucose 140 H 137 H (60-115) mg/dL Total Bilirubin 1.3 H (0.0-1.0) mg/dL 02/27/23 Range/Units 12:28 WBC (4.8-10.8) X10*3/uL Neut % (Auto) (45-73) % Lymph % (Auto) (20-40) % Abs Immat Gran (auto) (0.00-0.03) X10*3/uL Absolute Neuts (auto) (2.0-8.3) x10*3/uL Random Glucose (60-115) mg/dL Total Bilirubin 1.3 H (0.0-1.0) mg/dL H & H 02/27/23 Range/Units 12:06 Hgb 14.5 (14.0-18.0) g/dl Hct 43.5 (42.0-52.0) % Coagulation 02/27/23 Range/Units 12:06 INR 1.0 (0.9-1.1) All other labs normal. <YURI Ho Last Filed: 02/27/23 13:49> Diagnostic results Knee x-ray: image reviewed (left knee periprosthetic distal femur fracture. Prosthesis appears intact. ) <YURI Ho Last Filed: 02/27/23 13:49> Assessment and Plan (1) Fracture of distal end of femur: Qualifiers: Encounter type: initial encounter Fracture morphology: o ther fracture Fracture type: closed Laterality: left Qualified Code(s): S 72.492A - Other fracture of lower end of left femur, initial encounter for closed fracture <YURI Ho Last Filed: 02/27/23 13:49> Status: Acute <Selena Dinh PA-C - Last Filed: 02/27/23 13:49> I discussed the case with Dr Cheng and explained the extent of the injury to the patient and options available which include surgical intervention. I explained the procedure in detail along with the length of recovery and rehab course. I explained the risk, benefits and alternatives. Risk including, but not limited to infection, blood clots, bleeding, non union or malunion and nerve/tissue damage to surrounding areas. I answered all their questions and with their understanding they have consented to move forward with Operative Fixation of the left femur . The patient will be T&S, med clearance obtained and NPO after midnight. <Selena Dinh PA-C - Last Filed: 02/27/23 13:49> This patient was seen and evaluated by me. I recommend retrograde IM nail. THere is a remote possibility that it has a closed box and if that is the case we will have to do a plate. I explained the extent of the injury to the patient and options available which include surgical intervention. I explained the procedure in detail along with the length of recovery and rehab course. I explained the risk, benefits and alternatives. Risk including, but not limited to infection, blood clots, bleeding, non union or malunion and nerve/tissue damage to surrounding areas. I answered all their questions and with their understanding they have consented to move forward with Operative Fixation of the left femur . <Marc Cheng MD - Last Filed: 02/28/23 12:59> Total time managing care of this patient today: 20 minutes. <Marc Cheng MD - Last Filed: 02/28/23 12:59> Procedures Date of Service Date of Service: 02/27/23 <Selena Dinh PA-C - Last Filed: 02/27/23 13:49> 02/28/23 <Marc Cheng MD - Last Filed: 02/28/23 12:59>
--- NOTE | 2023-02-27 14:32 | PC.NURSE ---
late entry Pt arrived via [facility] s/p fall onto his left knee,. pt left knee was replaced approx 5-6 years ago by [facility] in [place]. pt was imaged and found to have fracture of left distal femur. 20G IV was placed in posterior aspect of right forearm. labs were obtained, and pt was medicated with 4mg MSO4 for 2/10pain. pt is tender to palpation along the left hip. pt resting comfortably, pt at bedside. plan is for admission and surgical repair of femur. [facility] consulted with pt and and discussed surgery to repair fx of distal femur. SW/CM saw pt and discussed continuing care, pt was primarily concerned with care of his spouse who has early onset dementia, and snow removal while he is in the hospital. 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 pt was changed into hospital attire, call ford within reach.
[2023-02-27 15:39] VITALS: BP 142/86; PULSE 82; RESP 15; O2SAT 99
[2023-02-27 15:43] VITALS: RESP 20
[2023-02-27 16:17] VITALS: BP 148/82; PULSE 82; RESP 20; TEMP 36.8; O2SAT 100
[2023-02-27 16:22] LABS: Glucose, Whole Blood 128 mg/dL (60-115)
[2023-02-27] MEDS: 0.9 % Sodium Chloride Flush 3 ML SYRINGE IVFLUSH ×2 (17:22→21:08)
[2023-02-27 18:57] VITALS: BP 145/74; PULSE 71; RESP 18; TEMP 37.3; O2SAT 96
[2023-02-27 20:12] LABS: Glucose, Whole Blood 133 mg/dL (60-115)
[2023-02-28] VITALS (14 sets, daily range): BP systolic 137–179; BP diastolic 71–95; PULSE 63–81; RESP 15–18; TEMP 36.4–37.6; O2SAT 88–99
[2023-02-28] MEDS: Morphine Sulfate 4 MG/ML CARTRIDGE IVPUSH ×3 (03:37→21:26)
[2023-02-28 07:37] LABS: Glucose, Whole Blood 133 mg/dL (60-115)
--- NOTE | 2023-02-28 10:05 | HO.PM.IMPN ---
Subjective Subjective Date of Service: 02/28/23 Review of Systems Follow up femur fx doing well today no nausea, vomiting, diarrhea Physical Exam Vital Signs: Vital Signs: Last Vital Signs Temp 99.7 F 02/28/23 07:30 Pulse 63 02/28/23 07:30 Resp 18 02/28/23 07:30 BP 179/82 H 02/28/23 07:30 Pulse Ox 97 02/28/23 07:30 O2 Del Method Room Air 02/28/23 07:30 BMI result Body Mass Index 33.0 Appearing in no acute distress lung sounds are clear to auscultation heart regular rate rhythm, clear S1, S2 positive bowel sounds, abdomen is soft, nontender neuro patient is alert x3, no focal deficits Objective Data Active Medications Acetaminophen (Acetaminophen 325 Mg Tablet) 650 mg PO Q6H PRN PRN Reason: Pain, Mild (Pain Scale 1-3) Benzonatate (Benzonatate 100 Mg Capsule) 100 mg PO TID PRN PRN Reason: Cough Brimonidine Tartrate (Brimonidine Tartrate 0.2% Oph 5 Ml Bottle) 1 drop EYE-BOTH BID [facility] Last Admin: 02/27/23 21:09 Dose: Not Given Documented By: FANTASMA Non-Admin Reason: Med Not Available Dextrose (Dextrose 50 % 25 Gm/50 Ml Syringe) 25 gm IVPUSH Q15M PRN; Protocol PRN Reason: per Hypoglycemia Standing Ord. Docusate Sodium (Docusate Sodium 100 Mg Capsule) 100 mg PO DAILY PRN PRN Reason: Constipation Glucose (Glucose Gel 15 Gm Gel..Gram.) 15 gm PO Q15M PRN; Protocol PRN Reason: per Hypoglycemia Standing Ord. Hydrochlorothiazide (Hydrochlorothiazide 12.5 Mg Tablet) 12.5 mg PO DAILY@0900 [facility] Insulin Human Lispro (Insulin Lispro 100 Unit/Ml 3 Ml Vial) 0 unit SUBCUT QIDACHS [facility]; Protocol Last Admin: 02/28/23 07:48 Dose: Not Given Documented By: LUIS ARMANDO Non-Admin Reason: No Insulin Coverage Melatonin (Melatonin 3 Mg Tablet) 6 mg PO BEDTIME PRN PRN Reason: Insomnia Morphine Sulfate (Morphine Sulfate 4 Mg/Ml Cartridge) 4 mg IVPUSH Q4H PRN; Protocol PRN Reason: Pain, Severe (Pain Scale 7-10) Last Admin: 02/28/23 03:37 Dose: 4 mg Documented By: FANTASMA Ondansetron HCl (Ondansetron Hcl 4 Mg/2 Ml Vial) 4 mg IVPUSH Q8H PRN PRN Reason: Nausea and Vomiting Sodium Chloride (0.9 % Sodium Chloride Flush 3 Ml Syringe) 3 ml IVFLUSH QSHIFT [facility] Last Admin: 02/27/23 21:08 Dose: 3 ml Documented By: FANTASMA Valsartan (Valsartan 320 Mg Tablet) 320 mg PO DAILY@0900 [facility] Labs 02/27/23 12:06 02/27/23 12:28 Labs: Laboratory Results - last 24 hr 02/27/23 02/27/23 02/27/23 12:06 12:28 12:28 MCV 85.5 MCH 28.5 MCHC 33.3 RDW 14.0 Plt Count 166 MPV 9.7 Immature Gran % (Auto) 0.4 Neut % (Auto) 79.3 H Lymph % (Auto) 15.5 L [place] % (Auto) 3.7 Eos % (Auto) 0.8 Baso % (Auto) 0.3 Lymph # (Auto) 1.7 [place] # (Auto) 0.4 Eos # (Auto) 0.1 Baso # (Auto) 0.0 Abs Immat Gran (auto) 0.04 H Absolute Neuts (auto) 8.7 H Absolute Nucleated RBC 0.000 Nucleated RBC % (auto) 0.0 PT 11.6 INR 1.0 Anion Gap 13 15 Estim Creat Clear Calc 99.3 Estimated GFR POC Glucose Random Glucose Calcium Total Bilirubin Direct Bilirubin AST ALT Alkaline Phosphatase Total Protein Albumin Blood Type Antibody Screen 02/27/23 02/27/23 02/27/23 12:28 12:28 12:28 MCV MCH MCHC RDW Plt Count MPV Immature Gran % (Auto) Neut % (Auto) Lymph % (Auto) [place] % (Auto) Eos % (Auto) Baso % (Auto) Lymph # (Auto) [place] # (Auto) Eos # (Auto) Baso # (Auto) Abs Immat Gran (auto) Absolute Neuts (auto) Absolute Nucleated RBC Nucleated RBC % (auto) PT INR Anion Gap Estim Creat Clear Calc 98.2 Estimated GFR > 60 > 60 POC Glucose Random Glucose 140 H 137 H Calcium 9.5 Total Bilirubin Direct Bilirubin AST ALT Alkaline Phosphatase Total Protein Albumin Blood Type Antibody Screen 02/27/23 02/27/23 02/27/23 12:28 12:28 12:28 MCV MCH MCHC RDW Plt Count MPV Immature Gran % (Auto) Neut % (Auto) Lymph % (Auto) [place] % (Auto) Eos % (Auto) Baso % (Auto) Lymph # (Auto) [place] # (Auto) Eos # (Auto) Baso # (Auto) Abs Immat Gran (auto) Absolute Neuts (auto) Absolute Nucleated RBC Nucleated RBC % (auto) PT INR Anion Gap Estim Creat Clear Calc Estimated GFR POC Glucose Random Glucose Calcium 9.5 Total Bilirubin 1.3 H 1.3 H Direct Bilirubin 0.5 0.5 AST 13 ALT Alkaline Phosphatase Total Protein Albumin Blood Type Antibody Screen 02/27/23 02/27/23 02/27/23 12:28 12:28 12:28 MCV MCH MCHC RDW Plt Count MPV Immature Gran % (Auto) Neut % (Auto) Lymph % (Auto) [place] % (Auto) Eos % (Auto) Baso % (Auto) Lymph # (Auto) [place] # (Auto) Eos # (Auto) Baso # (Auto) Abs Immat Gran (auto) Absolute Neuts (auto) Absolute Nucleated RBC Nucleated RBC % (auto) PT INR Anion Gap Estim Creat Clear Calc Estimated GFR POC Glucose Random Glucose Calcium Total Bilirubin Direct Bilirubin AST 14 ALT 13 12 Alkaline Phosphatase 57 57 Total Protein 7.1 Albumin Blood Type Antibody Screen 02/27/23 02/27/23 02/27/23 12:28 12:28 16:18 MCV MCH MCHC RDW Plt Count MPV Immature Gran % (Auto) Neut % (Auto) Lymph % (Auto) [place] % (Auto) Eos % (Auto) Baso % (Auto) Lymph # (Auto) [place] # (Auto) Eos # (Auto) Baso # (Auto) Abs Immat Gran (auto) Absolute Neuts (auto) Absolute Nucleated RBC Nucleated RBC % (auto) PT INR Anion Gap Estim Creat Clear Calc Estimated GFR POC Glucose 128 H Random Glucose Calcium Total Bilirubin Direct Bilirubin AST ALT Alkaline Phosphatase Total Protein 7.1 Albumin 4.2 4.2 Blood Type Antibody Screen 02/27/23 02/27/23 02/28/23 19:39 20:09 07:28 MCV MCH MCHC RDW Plt Count MPV Immature Gran % (Auto) Neut % (Auto) Lymph % (Auto) [place] % (Auto) Eos % (Auto) Baso % (Auto) Lymph # (Auto) [place] # (Auto) Eos # (Auto) Baso # (Auto) Abs Immat Gran (auto) Absolute Neuts (auto) Absolute Nucleated RBC Nucleated RBC % (auto) PT INR Anion Gap Estim Creat Clear Calc Estimated GFR POC Glucose 133 H 133 H Random Glucose Calcium Total Bilirubin Direct Bilirubin AST ALT Alkaline Phosphatase Total Protein Albumin Blood Type A Positive Antibody Screen NEGATIVE Assessment and Plan (1) Fracture of distal end of femur: Status: Acute Plan Pt is a 77-year-old male with a PMH significant for?HTN, non-insulin dependent diabetes type 2, hepatitis-C treated in 2016, and macular degeneration who presents to the ED for evaluation of left knee and hip pain after mechanical fall at home. Pt will be admitted to the hospital for treatment of displaced, periprosthetic distal left femur fracture with likely surgical procedure tomorrow. Left distal displaced and periprosthetic femur fracture S/P mechanical fall at home Analgesics for pain management Pneumatic boots for DVT prophylaxis Patient is at intermediate risk for planned procedure given age and comorbidities RCRI score 0, no significant known cardiac history; EKG showing normal sinus rhythm without ischemic changes NPO for surgery today Gbc-kdthruz-knzavrhjk diabetes type 2 Hold metformin sliding scale insulin npo HTN Continue home meds Degeneration Continue brimonidine eye drops Full Code Attending:?Dr. Salazar DVT Prophylaxis: Pneumatic boots d/t impending surgery continue hospital stay for treatment of?displaced, periprosthetic distal left femur fracture with likely surgical procedure tomorrow. Quality Stroke Does the patient have a stroke diagnosis?: No VTE Prior VTE?: No VTE Risk Level:: Medical - moderate - high VTE Device Contraindication: N/A - Device Ordered VTE Drug Contraindication: Treatment Not Indicated
[2023-02-28] MEDS: Brimonidine Tartrate 0.2% Oph 5 ML BOTTLE 1 DROP EYE-BOTH ×2 (10:18→21:18)
[2023-02-28] MEDS: hydroCHLOROthiazide 12.5 MG TABLET PO (10:18)
[2023-02-28] MEDS: 0.9 % Sodium Chloride Flush 3 ML SYRINGE IVFLUSH ×2 (10:19→21:18)
--- NOTE | 2023-02-28 11:13 | P.CONAN_ITS ---
HPI - Anesthesia Eval Consult details Narrative: Left femur fracture PMFSH Active Problems Active Problems: All Active Problems (Updated 02/27/23 @ 13:49 by PAUL Harry) Fracture of distal end of femur (Acute) Past Medical History Medical History HTN (hypertension) Diabetes Liver fibrosis Hepatitis C Family History Family history of problems with anesthesia: No Surgical History Surgical History Hx of cataract extraction History of esophagogastroduodenoscopy (EGD) H/O colonoscopy History of total left knee replacement Hx of rotator cuff surgery History of Problems with Anesthesia: No Social History Social History Household Members: Spouse Housing: House Do you presently have visiting nurse or other home services: No Patient Tobacco Use Status: Never used Tobacco Use of substances other than those prescribed or required for medical reasons: No Currently Displaying Signs/Symptoms of Drug Intoxication Withdrawal: No Have you been hit, kicked, punched, or otherwise hurt by someone within the past year? If so, by whom?: No Advance Directives: No Advance Directives Information Provided: No Advance Directives on File: No Do you have thoughts of harming others: None Do you have a plan to hurt others: No Plan Nutrition Risks: No Nutritional Risk service: No Meds Allergies Allergy/AdvReac Type Severity Reaction Status Date / Time No Known Allergies Allergy Unverified 10/27/19 16:53 [No Known Allergies*] Active Medications: Current Medications Acetaminophen (Acetaminophen 325 Mg Tablet) 650 mg PO Q6H PRN PRN Reason: Pain, Mild (Pain Scale 1-3) Benzonatate (Benzonatate 100 Mg Capsule) 100 mg PO TID PRN PRN Reason: Cough Brimonidine Tartrate (Brimonidine Tartrate 0.2% Oph 5 Ml Bottle) 1 drop EYE- BOTH BID [facility] Last Admin: 02/28/23 10:18 Dose: 1 drop Dextrose (Dextrose 50 % 25 Gm/50 Ml Syringe) 25 gm IVPUSH Q15M PRN; Protocol PRN Reason: per Hypoglycemia Standing Ord. Docusate Sodium (Docusate Sodium 100 Mg Capsule) 100 mg PO DAILY PRN PRN Reason: Constipation Glucose (Glucose Gel 15 Gm Gel..Gram.) 15 gm PO Q15M PRN; Protocol PRN Reason: per Hypoglycemia Standing Ord. Hydrochlorothiazide (Hydrochlorothiazide 12.5 Mg Tablet) 12.5 mg PO DAILY@0900 [facility] Last Admin: 02/28/23 10:18 Dose: 12.5 mg Insulin Human Lispro (Insulin Lispro 100 Unit/Ml 3 Ml Vial) 0 unit SUBCUT QIDACHS [facility]; Protocol Last Admin: 02/28/23 07:48 Dose: Not Given Melatonin (Melatonin 3 Mg Tablet) 6 mg PO BEDTIME PRN PRN Reason: Insomnia Morphine Sulfate (Morphine Sulfate 4 Mg/Ml Cartridge) 4 mg IVPUSH Q4H PRN; Protocol PRN Reason: Pain, Severe (Pain Scale 7-10) Last Admin: 02/28/23 03:37 Dose: 4 mg Ondansetron HCl (Ondansetron Hcl 4 Mg/2 Ml Vial) 4 mg IVPUSH Q8H PRN PRN Reason: Nausea and Vomiting Sodium Chloride (0.9 % Sodium Chloride Flush 3 Ml Syringe) [facility] Last Admin: 02/28/23 10:19 Dose: 3 ml Valsartan (Valsartan 320 Mg Tablet) 320 mg PO DAILY@0900 [facility] Home Medications Medication Instructions Recorded Confirmed Last Taken Type brimonidine 0.2 % eye drops 1 drp ophthalmic (eye) BID 09/17/20 02/27/23 Unknown History metformin 500 mg tablet 1 tab PO TID 09/17/20 02/27/23 Unknown History valsartan 320 1 tab PO DAILY 09/17/20 02/27/23 Unknown History mg-hydrochlorothiazide 12.5 mg tablet Exam Height,Weight and Vital Signs: Height 6 ft 5 in Weight 126.099 kg Last Vital Signs Temp 99.7 F 02/28/23 07:30 Pulse 63 02/28/23 07:30 Resp 18 02/28/23 07:30 BP 179/82 H 02/28/23 07:30 Pulse Ox 97 02/28/23 07:30 O2 Del Method Room Air 02/28/23 07:30 Pertinent Lab Results Pertinent Lab Results: Laboratory Tests 02/27/23 02/27/23 02/27/23 12:06 12:28 12:28 WBC 11.0 H RBC 5.09 Hgb 14.5 Hct 43.5 MCV 85.5 MCH 28.5 MCHC 33.3 RDW 14.0 Plt Count 166 MPV 9.7 Immature Gran % (Auto) 0.4 Neut % (Auto) 79.3 H Lymph % (Auto) 15.[address] [place] % (Auto) 3.7 Eos % (Auto) 0.8 Baso % (Auto) 0.3 Lymph # (Auto) 1.7 [place] # (Auto) 0.4 Eos # (Auto) 0.1 Baso # (Auto) 0.0 Abs Immat Gran (auto) 0.04 H Absolute Neuts (auto) 8.7 H Absolute Nucleated RBC 0.000 Nucleated RBC % (auto) 0.0 PT 11.6 INR 1.0 Sodium 141 143 Potassium 4.2 Chloride Carbon Dioxide Anion Gap BUN Creatinine Estim Creat Clear Calc Estimated GFR POC Glucose Random Glucose Calcium Total Bilirubin Direct Bilirubin AST ALT Alkaline Phosphatase Total Protein Albumin Blood Type Antibody Screen 02/27/23 02/27/23 02/27/23 12:28 12:28 12:28 WBC RBC Hgb Hct MCV MCH MCHC RDW Plt Count MPV Immature Gran % (Auto) Neut % (Auto) Lymph % (Auto) [place] % (Auto) Eos % (Auto) Baso % (Auto) Lymph # (Auto) [place] # (Auto) Eos # (Auto) Baso # (Auto) Abs Immat Gran (auto) Absolute Neuts (auto) Absolute Nucleated RBC Nucleated RBC % (auto) PT INR Sodium Potassium 4.3 Chloride 108 108 Carbon Dioxide 24 24 Anion Gap 13 BUN Creatinine Estim Creat Clear Calc Estimated GFR POC Glucose Random Glucose Calcium Total Bilirubin Direct Bilirubin AST ALT Alkaline Phosphatase Total Protein Albumin Blood Type Antibody Screen 02/27/23 02/27/23 02/27/23 12:28 12:28 12:28 WBC RBC Hgb Hct MCV MCH MCHC RDW Plt Count MPV Immature Gran % (Auto) Neut % (Auto) Lymph % (Auto) [place] % (Auto) Eos % (Auto) Baso % (Auto) Lymph # (Auto) [place] # (Auto) Eos # (Auto) Baso # (Auto) Abs Immat Gran (auto) Absolute Neuts (auto) Absolute Nucleated RBC Nucleated RBC % (auto) PT INR Sodium Potassium Chloride Carbon Dioxide Anion Gap 15 BUN 13 13 Creatinine 0.93 0.94 Estim Creat Clear Calc 99.3 Estimated GFR POC Glucose Random Glucose Calcium Total Bilirubin Direct Bilirubin AST ALT Alkaline Phosphatase Total Protein Albumin Blood Type Antibody Screen 02/27/23 02/27/23 02/27/23 12:28 12:28 12:28 WBC RBC Hgb Hct MCV MCH MCHC RDW Plt Count MPV Immature Gran % (Auto) Neut % (Auto) Lymph % (Auto) [place] % (Auto) Eos % (Auto) Baso % (Auto) Lymph # (Auto) [place] # (Auto) Eos # (Auto) Baso # (Auto) Abs Immat Gran (auto) Absolute Neuts (auto) Absolute Nucleated RBC Nucleated RBC % (auto) PT INR Sodium Potassium Chloride Carbon Dioxide Anion Gap BUN Creatinine Estim Creat Clear Calc 98.2 Estimated GFR > 60 > 60 POC Glucose Random Glucose 140 H 137 H Calcium 9.5 Total Bilirubin Direct Bilirubin AST ALT Alkaline Phosphatase Total Protein Albumin Blood Type Antibody Screen 02/27/23 02/27/23 02/27/23 12:28 12:28 12:28 WBC RBC Hgb Hct MCV MCH MCHC RDW Plt Count MPV Immature Gran % (Auto) Neut % (Auto) Lymph % (Auto) [place] % (Auto) Eos % (Auto) Baso % (Auto) Lymph # (Auto) [place] # (Auto) Eos # (Auto) Baso # (Auto) Abs Immat Gran (auto) Absolute Neuts (auto) Absolute Nucleated RBC Nucleated RBC % (auto) PT INR Sodium Potassium Chloride Carbon Dioxide Anion Gap BUN Creatinine Estim Creat Clear Calc Estimated GFR POC Glucose Random Glucose Calcium 9.5 Total Bilirubin 1.3 H 1.3 H Direct Bilirubin 0.5 0.5 AST 13 ALT Alkaline Phosphatase Total Protein Albumin Blood Type Antibody Screen 02/27/23 02/27/23 02/27/23 12:28 12:28 12:28 WBC RBC Hgb Hct MCV MCH MCHC RDW Plt Count MPV Immature Gran % (Auto) Neut % (Auto) Lymph % (Auto) [place] % (Auto) Eos % (Auto) Baso % (Auto) Lymph # (Auto) [place] # (Auto) Eos # (Auto) Baso # (Auto) Abs Immat Gran (auto) Absolute Neuts (auto) Absolute Nucleated RBC Nucleated RBC % (auto) PT INR Sodium Potassium Chloride Carbon Dioxide Anion Gap BUN Creatinine Estim Creat Clear Calc Estimated GFR POC Glucose Random Glucose Calcium Total Bilirubin Direct Bilirubin AST 14 ALT 13 12 Alkaline Phosphatase 57 57 Total Protein 7.1 Albumin Blood Type Antibody Screen 02/27/23 02/27/23 02/27/23 12:28 12:28 16:18 WBC RBC Hgb Hct MCV MCH MCHC RDW Plt Count MPV Immature Gran % (Auto) Neut % (Auto) Lymph % (Auto) [place] % (Auto) Eos % (Auto) Baso % (Auto) Lymph # (Auto) [place] # (Auto) Eos # (Auto) Baso # (Auto) Abs Immat Gran (auto) Absolute Neuts (auto) Absolute Nucleated RBC Nucleated RBC % (auto) PT INR Sodium Potassium Chloride Carbon Dioxide Anion Gap BUN Creatinine Estim Creat Clear Calc Estimated GFR POC Glucose 128 H Random Glucose Calcium Total Bilirubin Direct Bilirubin AST ALT Alkaline Phosphatase Total Protein 7.1 Albumin 4.2 4.2 Blood Type Antibody Screen 02/27/23 02/27/23 02/28/23 19:39 20:09 07:28 WBC RBC Hgb Hct MCV MCH MCHC RDW Plt Count MPV Immature Gran % (Auto) Neut % (Auto) Lymph % (Auto) [place] % (Auto) Eos % (Auto) Baso % (Auto) Lymph # (Auto) [place] # (Auto) Eos # (Auto) Baso # (Auto) Abs Immat Gran (auto) Absolute Neuts (auto) Absolute Nucleated RBC Nucleated RBC % (auto) PT INR Sodium Potassium Chloride Carbon Dioxide Anion Gap BUN Creatinine Estim Creat Clear Calc Estimated GFR POC Glucose 133 H 133 H Random Glucose Calcium Total Bilirubin Direct Bilirubin AST ALT Alkaline Phosphatase Total Protein Albumin Blood Type A Positive Antibody Screen NEGATIVE Airway Mallampati Class: II TM Dist: >3cm Neck ROM: Full Denture: Upper Loose/Missing/Broken Teeth: No Heart: RRR Lungs: CTA Assessment and Plan Assessment Anesthesia Assessment: Anesthesia Plan Discussed and Chart Reviewed Final Anesthetic Review Family History of Problems with Anesthesia: No History of Problems with Anesthesia: No NPO: Yes ASA Class: III Final Preanesthetic Review: No Changes in Pt Med Stat, Meds/Allgs Chart Reviewed, Consent Obtained/Reviewed and Anes Risks/Benef Reviewed Patient Risk: High Procedure Risk: Intermediate Anesthetic Plan Anesthetic Plan: GA Disposition: Standard PACU
[2023-02-28 11:15] LABS: Glucose, Whole Blood 137 mg/dL (60-115)
[2023-02-28] MEDS: Valsartan 320 MG TABLET PO (11:46)
--- NOTE | 2023-02-28 12:26 | MHC.CM.PN ---
IMM delivered. Patient is from home with . Independent at baseline. PCP Ray Schofield CM assited w/ completion of HCP. Patient named Lashay as agent. [phone]. DP: OR today for femur fx. Anticipate PT eval. Patient is not open to SNF, but would like home PT if appropriate. Prefers [facility]. CM will continue to follow for dc needs.
--- NOTE | 2023-02-28 14:56 | PM.OP ---
Brief Operative Note Date of Service: 02/28/23 Pre-op diagnosis: Left distal femoral periprosthetic fracture Post-op diagnosis: same Procedure: Retrograde IMN left distal femur Implants: Deport 380x12 with 4 distal interlocking screws and one proximal interlocking screw Surgeon: Marc Cheng MD Anesthesia: GETA Was an Security And Compliance Analyst used for this Procedure?: Yes Security And Compliance Analyst: Selena Dinh Estimated blood loss (mL): 200 IV fluids (mL): 1,000 Pathology: none sent Condition: stable Disposition: PACU
[2023-02-28] MEDS: ondansetron HCL 4 MG/2 ML VIAL IVPUSH (15:15)
[2023-02-28 15:51] LABS: Glucose, Whole Blood 158 mg/dL (60-115)
[2023-02-28 16:40] LABS: Glucose, Whole Blood 169 mg/dL (60-115)
[2023-02-28 20:48] LABS: Glucose, Whole Blood 164 mg/dL (60-115)
[2023-02-28] MEDS: Insulin Lispro 100 UNIT/ML 3 ML VIAL SUBCUT (21:18)
[2023-03-01 03:02] VITALS: BP 124/67; PULSE 78; RESP 18; TEMP 36.7; O2SAT 97
[2023-03-01] MEDS: Morphine Sulfate 4 MG/ML CARTRIDGE IVPUSH ×4 (03:44→20:32)
[2023-03-01 08:00] VITALS: BP 143/70; PULSE 94; RESP 18; TEMP 37.1; O2SAT 98
[2023-03-01 08:00] LABS: Glucose, Whole Blood 136 mg/dL (60-115)
[2023-03-01] MEDS: hydroCHLOROthiazide 12.5 MG TABLET PO (08:21)
[2023-03-01] MEDS: 0.9 % Sodium Chloride Flush 3 ML SYRINGE IVFLUSH ×3 (08:22→20:43)
[2023-03-01] MEDS: Valsartan 320 MG TABLET PO (08:22)
[2023-03-01] MEDS: Brimonidine Tartrate 0.2% Oph 5 ML BOTTLE 1 DROP EYE-BOTH ×2 (08:24→20:42)
--- NOTE | 2023-03-01 09:18 | P.PNIM_ITS ---
Subjective Subjective Date of Service: 03/01/23 Review of Systems Follow up femur fx doing well today no nausea, vomiting, diarrhea Physical Exam 2 Vital Signs: Vital Signs: Last Vital Signs Temp 98.7 F 03/01/23 08:00 Pulse 94 03/01/23 08:00 Resp 18 03/01/23 08:00 BP 143/70 H 03/01/23 08:00 Pulse Ox 98 03/01/23 08:00 O2 Del Method Room Air 03/01/23 08:00 O2 Flow Rate 2 03/01/23 03:02 BMI result Body Mass Index 33.0 Appearing in no acute distress lung sounds are clear to auscultation heart regular rate rhythm, clear S1, S2 positive bowel sounds, abdomen is soft, nontender neuro patient is alert x3, no focal deficits Surgical dressing intact, surgical incision not visualized Objective Data Active Medications Acetaminophen (Acetaminophen 325 Mg Tablet) 650 mg PO Q6H PRN PRN Reason: Pain, Mild (Pain Scale 1-3) Benzonatate (Benzonatate 100 Mg Capsule) 100 mg PO TID PRN PRN Reason: Cough Brimonidine Tartrate (Brimonidine Tartrate 0.2% Oph 5 Ml Bottle) 1 drop EYE- BOTH BID [facility] Last Admin: 03/01/23 08:24 Dose: 1 drop Documented By: LUIS ARMANDO Dextrose (Dextrose 50 % 25 Gm/50 Ml Syringe) 25 gm IVPUSH Q15M PRN; Protocol PRN Reason: per Hypoglycemia Standing Ord. Docusate Sodium (Docusate Sodium 100 Mg Capsule) 100 mg PO DAILY PRN PRN Reason: Constipation Glucose (Glucose Gel 15 Gm Gel..Gram.) 15 gm PO Q15M PRN; Protocol PRN Reason: per Hypoglycemia Standing Ord. Hydrochlorothiazide (Hydrochlorothiazide 12.5 Mg Tablet) 12.5 mg PO DAILY@0900 [facility] Last Admin: 03/01/23 08:21 Dose: 12.5 mg Documented By: LUIS ARMANDO Cefazolin Sodium/Dextrose (Ancef) 2 gm in 50 mls @ 100 mls/hr IV POSTOP [facility] Insulin Human Lispro (Insulin Lispro 100 Unit/Ml 3 Ml Vial) 0 unit SUBCUT QIDACHS [facility]; Protocol Last Admin: 03/01/23 07:57 Dose: Not Given Documented By: HO.DOBROB Non-Admin Reason: No Insulin Coverage Melatonin (Melatonin 3 Mg Tablet) 6 mg PO BEDTIME PRN PRN Reason: Insomnia Morphine Sulfate (Morphine Sulfate 4 Mg/Ml Cartridge) 4 mg IVPUSH Q4H PRN; Protocol PRN Reason: Pain, Severe (Pain Scale 7-10) Last Admin: 03/01/23 08:21 Dose: 4 mg Documented By: LUIS ARMANDO Ondansetron HCl (Ondansetron Hcl 4 Mg/2 Ml Vial) 4 mg IVPUSH Q8H PRN PRN Reason: Nausea and Vomiting Sodium Chloride (0.9 % Sodium Chloride Flush 3 Ml Syringe) 3 ml IVFLUSH QSHIFT [facility] Last Admin: 03/01/23 08:22 Dose: 3 ml Documented By: LUIS ARMANDO Valsartan (Valsartan 320 Mg Tablet) 320 mg PO DAILY@0900 [facility] Last Admin: 03/01/23 08:22 Dose: 320 mg Documented By: LUIS ARMANDO Labs 02/27/23 12:06 02/27/23 12:28 Labs: Laboratory Results - last 24 hr 02/28/23 02/28/23 02/28/23 11:08 15:46 16:37 POC Glucose 137 H 158 H 169 H 02/28/23 03/01/23 20:43 07:56 POC Glucose 164 H 136 H Assessment and Plan (1) Fracture of distal end of femur: Status: Acute Plan Pt is a 77-year-old male with a PMH significant for?HTN, non-insulin dependent diabetes type 2, hepatitis-C treated in 2016, and macular degeneration who presents to the ED for evaluation of left knee and hip pain after mechanical fall at home. Pt will be admitted to the hospital for treatment of displaced, periprosthetic distal left femur fracture with likely surgical procedure tomorrow. Left distal displaced and periprosthetic femur fracture mechanical fall at home s/p IMN nailing left distal femur fx 02/28/22 Analgesics for pain management lovenox Tgl-lqaogrd-lebxrlziv diabetes type 2 sliding scale insulin, ada diet HTN Continue home meds Degeneration Continue brimonidine eye drops Full Code Attending:?Dr. Salazar DVT Prophylaxis: Lovenox continue hospital stay for treatment of?displaced, periprosthetic distal left femur fracture Quality Stroke Does the patient have a stroke diagnosis?: No VTE Prior VTE?: No VTE Risk Level:: Medical - moderate - high VTE Device Contraindication: N/A - Device Ordered VTE Drug Contraindication: Treatment Not Indicated
[2023-03-01] MEDS: Enoxaparin Sodium 40 MG/0.4 ML SYRINGE SUBCUT (10:23)
--- NOTE | 2023-03-01 10:27 | HO.POSTANES ---
Post Anesthesia Evaluation Post Anesthesia Evaluation Date of Service: 03/01/23 Vital Signs: Vital Signs Temp Pulse Resp BP Pulse Ox O2 Del Method O2 Flow Rate 03/01/23 08:00 98.7 F 94 18 143/70 H 98 Room Air 03/01/23 03:02 98.0 F 78 18 124/67 97 Nasal Cannula 2 02/28/23 23:23 98.1 F 79 18 137/71 99 Nasal Cannula 2 Anesthesia: General LMA Mental Status: Awake Pain Control: Satisfactory Nausea/Vomiting: None Hydration: Adequate Anesthesia-Related Issues: No Anes. Related Issues
--- NOTE | 2023-03-01 10:45 | P.PNOP_ITS ---
Subjective Subjective Date of Service: 03/01/23 Interval history: POD 1 s/p Left femur retrograde nail no overnight events resting in bed, pain is tolerable denies cp, sob, palpitations Physical Exam Vital Signs: Vital Signs: Last Vital Signs Temp 98.7 F 03/01/23 08:00 Pulse 94 03/01/23 08:00 Resp 18 03/01/23 08:00 BP 143/70 H 03/01/23 08:00 Pulse Ox 98 03/01/23 08:00 O2 Del Method Room Air 03/01/23 08:00 O2 Flow Rate 2 03/01/23 03:02 BMI result Body Mass Index 33.0 Const: General: cooperative, healthy appearing and no acute distress Resp: Effort & Inspection: normal respiratory effort and able to speak in complete sentences Cardio: Rate: regular rate Peripheral pulses: Peripheral pulses 2+ throughout GI: Palpation (GI): Soft to palpation Skin: General skin exam: no rashes or lesions noted Extrem: Other: LEft knee incision c/d/i. He has good sensation and pulses. He is able to dorsi and plantar flex. Procedures Date of Service Date of Service: 03/01/23 Progress Note: A&P Assessment and plan (1) Fracture of distal end of femur: Status: Acute Assessment and Plan: * Continue pain mgmnt * Begin lovenox for dvt ppx * begin PT for LT retrograde nail-25% wb * Dispo planning-Pending PT eval, pain mgmnt Need for continued inpatient stay: PT eval Time Spent With Patient Time: Total time managing care of this patient today ____ minutes. Quality Stroke Does the patient have a stroke diagnosis?: No VTE Prior VTE?: No VTE Risk Level:: Medical - moderate - high VTE Device Contraindication: N/A - Device Ordered VTE Drug Contraindication: Treatment Not Indicated
[2023-03-01 10:59] LABS: MANUAL DIFF FLAG NO
[2023-03-01 11:02] LABS: Basophils Percent Auto 0.2 % (0-2); Eosinophils Absolute Auto 0.1 X10*3/uL (0.0-0.4); Eosinophils Percent Auto 0.5 % (0-4); Hematocrit 34.7 % (42.0-52.0); Hemoglobin 11.5 g/dl (14.0-18.0); Imm Gran Abs Auto 0.05 X10*3/uL (0.00-0.03); Imm Gran Pct Auto 0.5 % (0.0-0.4); Lymphocytes Absolute Auto 1.4 X10*3/uL (1.2-4.9); Mean Corpuscular HGB Conc 33.1 g/dl (31.0-36.0); Mean Corpuscular Hemoglobin 29.1 pg (27.0-33.0); Mean Corpuscular Volume 87.8 fL (80.0-98.0); Mean Platelet Volume 9.5 fL (9.4-12.4); Monocytes Absolute Auto 0.8 X10*3/uL (0.1-1.2); Monocytes Percent Auto 7.7 % (2-11); Neutrophils Absolute Auto 7.5 x10*3/uL (2.0-8.3); Neutrophils Percent Auto 77.1 % (45-73); Platelet Count 144 X10*3/uL (160-400); Red Blood Count 3.95 X10*6/uL (4.60-5.80); Red Cell Distribution Width 13.7 % (11.0-16.0); White Blood Count 9.8 X10*3/uL (4.8-10.8)
[2023-03-01 11:14] VITALS: O2SAT 98
[2023-03-01 11:54] LABS: Glucose, Whole Blood 235 mg/dL (60-115)
[2023-03-01] MEDS: Insulin Lispro 100 UNIT/ML 3 ML VIAL SUBCUT ×3 (12:23→20:34)
[2023-03-01 15:51] VITALS: BP 138/67; PULSE 94; RESP 18; TEMP 37.7; O2SAT 97
[2023-03-01 16:17] LABS: Glucose, Whole Blood 210 mg/dL (60-115)
[2023-03-01 19:24] VITALS: BP 129/67; PULSE 95; RESP 16; TEMP 37.2; O2SAT 98
[2023-03-01 19:53] LABS: Glucose, Whole Blood 207 mg/dL (60-115)
[2023-03-01 23:16] VITALS: BP 132/71; PULSE 85; RESP 15; TEMP 36.4; O2SAT 98
[2023-03-02 04:00] VITALS: BP 135/63; PULSE 83; RESP 16; TEMP 37.1; O2SAT 99
[2023-03-02] MEDS: Docusate Sodium 100 MG CAPSULE PO (04:35)
[2023-03-02] MEDS: Morphine Sulfate 4 MG/ML CARTRIDGE IVPUSH ×2 (06:22→19:29)
--- NOTE | 2023-03-02 07:20 | P.PNOP_ITS ---
Subjective Subjective Date of Service: 03/02/23 Interval history: POD 2 s/p Left femur retrograde nail no overnight events resting in bed, pain is tolerable denies cp, sob, palpitations Physical Exam Vital Signs: Vital Signs: Last Vital Signs Temp 98.8 F 03/02/23 04:00 Pulse 83 03/02/23 04:00 Resp 16 03/02/23 04:00 BP 135/63 03/02/23 04:00 Pulse Ox 99 03/02/23 04:00 O2 Del Method Room Air 03/01/23 23:16 O2 Flow Rate 2 03/01/23 03:02 BMI result Body Mass Index 33.0 Const: General: cooperative, healthy appearing and no acute distress Resp: Effort & Inspection: normal respiratory effort and able to speak in complete sentences Cardio: Rate: regular rate Peripheral pulses: Peripheral pulses 2+ throughout GI: Palpation (GI): Soft to palpation Skin: Lesions: no lesions Rashes: no rashes Extrem: Other: left knee dressing is c/d/i. Able to dorsi/plantar flex. Calf is supple and nontender. Sensation intact. Pedal pulse intact. Procedures Date of Service Date of Service: 03/02/23 Progress Note: A&P Assessment and plan (1) Fracture of distal end of femur: Status: Acute Assessment and Plan: * Continue pain mgmnt * Continue lovenox for dvt ppx * Begin PT for LT retrograde nail-25% wb * Dispo planning-Pending PT eval, pain mgmnt Need for continued inpatient stay: PT eval Time Spent With Patient Time: Total time managing care of this patient today ____ minutes. Quality Stroke Does the patient have a stroke diagnosis?: No VTE Prior VTE?: No VTE Risk Level:: Medical - moderate - high VTE Device Contraindication: N/A - Device Ordered VTE Drug Contraindication: Treatment Not Indicated
[2023-03-02 07:22] VITALS: BP 128/65; PULSE 79; RESP 18; TEMP 36.7; O2SAT 98
[2023-03-02 07:46] LABS: Glucose, Whole Blood 155 mg/dL (60-115)
--- NOTE | 2023-03-02 08:01 | W.PM.OPN ---
Operative Note Operative Note Date of Service: 02/28/23 Narrative: Date of Service: 02/28/23 Pre-op diagnosis: Left distal femoral periprosthetic fracture Post-op diagnosis: same Procedure: Retrograde IMN left distal femur Implants: Tyler 380x12 with 4 distal interlocking screws and one proximal interlocking screw Surgeon: Marc Cheng MD Anesthesia: GETA Was an Vehicle Maintenance Technician used for this Procedure?: Yes Vehicle Maintenance Technician: Selena Dinh Estimated blood loss (mL): 200 IV fluids (mL): 1,000 Pathology: none sent Condition: stable Disposition: PACU Procedure in detail: Patient was brought to the operating room and placed supine on the fracture table. He was prepped and draped in standard sterile fashion and a time out was called to identify proper site, proper procedure and IV antibiotics per weight were administered. I began by flexing the knee up and making a small 1 cm incision between the distal pole of the patella and the tibial tubercle directly midline. Using lateral and AP fluoro I placed the guidewire into the femur through the open box of the femoral prosthesis. I then made a larger incision transpatellar tendon. A tissue retractor was placed and I over-reamed with a 12.5 opening reamer. A ball tipped guidewire was ten placed across the fracture. This was a short butterfly fragment and his bone quality was good. With the fracture in a reduced position, I was only able to get a 13 reamer through the box. I then measured and placed a 380x12 mm nail. Using the targeting guide 4 distal screws were placed through the nail. Using perfect [place] technique 1 proximal interlocking screw was placed. Final radiographs showed excellent positioning of the hardware and fracture alignement. I irrigated copiously and then closed with absorbable sutures and skin susanna. Patient was then placed in sterile dressing and extubated. He was brought to the recovery room in stable condition. There were no known complications.
[2023-03-02] MEDS: Valsartan 320 MG TABLET PO (08:41)
[2023-03-02] MEDS: Insulin Lispro 100 UNIT/ML 3 ML VIAL SUBCUT ×4 (08:41→20:05)
[2023-03-02] MEDS: 0.9 % Sodium Chloride Flush 3 ML SYRINGE IVFLUSH ×3 (08:41→19:37)
[2023-03-02] MEDS: hydroCHLOROthiazide 12.5 MG TABLET PO (08:41)
[2023-03-02] MEDS: Enoxaparin Sodium 40 MG/0.4 ML SYRINGE SUBCUT (08:43)
[2023-03-02] MEDS: Brimonidine Tartrate 0.2% Oph 5 ML BOTTLE 1 DROP EYE-BOTH ×2 (08:44→19:36)
--- NOTE | 2023-03-02 09:26 | HO.PM.IMPN ---
Subjective Subjective Date of Service: 03/02/23 Review of Systems Follow up femur fx doing well today no nausea, vomiting, diarrhea Physical Exam Vital Signs: Vital Signs: Last Vital Signs Temp 98.0 F 03/02/23 07:22 Pulse 79 03/02/23 07:22 Resp 18 03/02/23 07:22 BP 128/65 03/02/23 07:22 Pulse Ox 98 03/02/23 07:22 O2 Del Method Room Air 03/02/23 07:22 O2 Flow Rate 2 03/01/23 03:02 BMI result Body Mass Index 33.0 Appearing in no acute distress lung sounds are clear to auscultation heart regular rate rhythm, clear S1, S2 positive bowel sounds, abdomen is soft, nontender neuro patient is alert x3, no focal deficits Left knee pino Objective Data Active Medications Acetaminophen (Acetaminophen 325 Mg Tablet) 650 mg PO Q6H PRN PRN Reason: Pain, Mild (Pain Scale 1-3) Benzonatate (Benzonatate 100 Mg Capsule) 100 mg PO TID PRN PRN Reason: Cough Brimonidine Tartrate (Brimonidine Tartrate 0.2% Oph 5 Ml Bottle) 1 drop EYE-BOTH BID [facility] Last Admin: 03/02/23 08:44 Dose: 1 drop Documented By: BERNADETTE Dextrose (Dextrose 50 % 25 Gm/50 Ml Syringe) 25 gm IVPUSH Q15M PRN; Protocol PRN Reason: per Hypoglycemia Standing Ord. Docusate Sodium (Docusate Sodium 100 Mg Capsule) 100 mg PO DAILY PRN PRN Reason: Constipation Last Admin: 03/02/23 04:35 Dose: 100 mg Documented By: PIEDAD Enoxaparin Sodium (Enoxaparin Sodium 40 Mg/0.4 Ml Syringe) 40 mg SUBCUT Q24H [facility] Last Admin: 03/02/23 08:43 Dose: 40 mg Documented By: BERNADETTE Glucose (Glucose Gel 15 Gm Gel..Gram.) 15 gm PO Q15M PRN; Protocol PRN Reason: per Hypoglycemia Standing Ord. Hydrochlorothiazide (Hydrochlorothiazide 12.5 Mg Tablet) 12.5 mg PO DAILY@0900 [facility] Last Admin: 03/02/23 08:41 Dose: 12.5 mg Documented By: BERNADETTE Cefazolin Sodium/Dextrose (Ancef) 2 gm in 50 mls @ 100 mls/hr IV POSTOP [facility] Insulin Human Lispro (Insulin Lispro 100 Unit/Ml 3 Ml Vial) 0 unit SUBCUT QIDACHS [facility]; Protocol Last Admin: 03/02/23 08:41 Dose: 2 unit Documented By: BERNADETTE Melatonin (Melatonin 3 Mg Tablet) 6 mg PO BEDTIME PRN PRN Reason: Insomnia Morphine Sulfate (Morphine Sulfate 4 Mg/Ml Cartridge) 4 mg IVPUSH Q4H PRN; Protocol PRN Reason: Pain, Severe (Pain Scale 7-10) Last Admin: 03/02/23 06:22 Dose: 4 mg Documented By: PIEDAD Ondansetron HCl (Ondansetron Hcl 4 Mg/2 Ml Vial) 4 mg IVPUSH Q8H PRN PRN Reason: Nausea and Vomiting Sodium Chloride (0.9 % Sodium Chloride Flush 3 Ml Syringe) 3 ml IVFLUSH QSHIFT [facility] Last Admin: 03/02/23 08:41 Dose: 3 ml Documented By: BERNADETTE Valsartan (Valsartan 320 Mg Tablet) 320 mg PO DAILY@0900 [facility] Last Admin: 03/02/23 08:41 Dose: 320 mg Documented By: BERNADETTE Labs 03/01/23 10:47 02/27/23 12:28 Labs: Laboratory Results - last 24 hr 03/01/23 03/01/23 03/01/23 10:47 11:27 16:08 MCV 87.8 MCH 29.1 MCHC 33.1 RDW 13.7 Plt Count 144 L MPV 9.5 Immature Gran % (Auto) 0.5 H Neut % (Auto) 77.1 H Lymph % (Auto) 14.0 L [place] % (Auto) 7.7 Eos % (Auto) 0.5 Baso % (Auto) 0.2 Lymph # (Auto) 1.4 [place] # (Auto) 0.8 Eos # (Auto) 0.1 Baso # (Auto) 0.0 Abs Immat Gran (auto) 0.05 H Absolute Neuts (auto) 7.5 Absolute Nucleated RBC 0.000 Nucleated RBC % (auto) 0.0 POC Glucose 235 H 210 H 03/01/23 03/02/23 19:47 07:28 MCV MCH MCHC RDW Plt Count MPV Immature Gran % (Auto) Neut % (Auto) Lymph % (Auto) [place] % (Auto) Eos % (Auto) Baso % (Auto) Lymph # (Auto) [place] # (Auto) Eos # (Auto) Baso # (Auto) Abs Immat Gran (auto) Absolute Neuts (auto) Absolute Nucleated RBC Nucleated RBC % (auto) POC Glucose 207 H 155 H Assessment and Plan (1) Fracture of distal end of femur: Status: Acute Plan Pt is a 77-year-old male with a PMH significant for?HTN, non-insulin dependent diabetes type 2, hepatitis-C treated in 2016, and macular degeneration who presents to the ED for evaluation of left knee and hip pain after mechanical fall at home. Pt will be admitted to the hospital for treatment of displaced, periprosthetic distal left femur fracture with likely surgical procedure tomorrow. Left distal displaced and periprosthetic femur fracture mechanical fall at home s/p IMN nailing left distal femur fx 02/28/22 Analgesics for pain management lovenox Ohu-[id number]-bprddkvdj diabetes type 2 sliding scale insulin, ada diet HTN Continue home meds Degeneration Continue brimonidine eye drops Full Code Attending:?Dr. Salazar DVT Prophylaxis: Lovenox DISPO plan for dc home when medically stable continue hospital stay for treatment of?displaced, periprosthetic distal left femur fracture Quality Stroke Does the patient have a stroke diagnosis?: No VTE Prior VTE?: No VTE Risk Level:: Medical - moderate - high VTE Device Contraindication: N/A - Device Ordered VTE Drug Contraindication: Treatment Not Indicated
[2023-03-02 11:02] LABS: Glucose, Whole Blood 185 mg/dL (60-115)
[2023-03-02 11:22] VITALS: BP 139/69; PULSE 82; RESP 16; TEMP 36.4; O2SAT 98
[2023-03-02 15:00] VITALS: BP 139/87; PULSE 113; RESP 18; TEMP 36.5; O2SAT 100
--- NOTE | 2023-03-02 15:13 | MHC.CM.PN ---
per rounds pt expctd to [facility] dc plan remains home w/?services
[2023-03-02 16:14] LABS: Glucose, Whole Blood 192 mg/dL (60-115)
[2023-03-02 19:18] VITALS: BP 125/75; PULSE 89; RESP 18; TEMP 37; O2SAT 98
[2023-03-02 20:02] LABS: Glucose, Whole Blood 208 mg/dL (60-115)
[2023-03-02 23:28] VITALS: BP 127/78; PULSE 87; RESP 17; TEMP 37; O2SAT 97
[2023-03-03] MEDS: Morphine Sulfate 4 MG/ML CARTRIDGE IVPUSH ×2 (02:32→18:36)
[2023-03-03 02:35] VITALS: BP 119/66; PULSE 87; RESP 18; TEMP 37; O2SAT 98
--- NOTE | 2023-03-03 07:09 | P.DS_ITS ---
DS: Providers Provider Date of Service: 03/03/23 Date of admission: 02/27/23 13:19 Primary care physician: Ray Schofield MD Consults: 02/27/23 13:36 Consult to Orthopedics Routine Consulting Provider: [facility] [place] [facility] Reason for consultation: Displaced, periprosthetic distal left femur fracture Has provider been notified: Yes DS: Diagnosis Discharge Diagnosis (1) Fracture of distal end of femur: Status: Acute DS: Summary Hospital Course Hospital Course: History physical as per admitting provider. Pt is a 77-year-old male with a PMH significant for?HTN, non-insulin dependent diabetes type 2, hepatitis-C treated in 2016, and macular degeneration who presents to the ED for evaluation of left knee and hip pain after mechanical fall at home. Patient states that he was on his deck when he slipped and fell on the ice and snow. His leg when back behind him and he heard a ?pop? and then he fell. Denies head strike or loss of consciousness. No lightheadedness or dizziness. Patient was unable to stand up or bear weight on his leg so he crawled to the door to get to a found to call EMS. Patient denies any other acute medical complaints at this time. No chest pain/pressure, palpitations. Denies fever, chills, nausea, vomiting, abdominal pain. Denies right hip or leg pain. Of note, patient had left TKA with subsequent washout and revision. In the ED pt was tachypneic up to 24, and slightly hypertensive up to 143/120, otherwise vitals WNL. Labs were significant for wbc's 11.0, bilirubin 1.3, otherwise grossly unremarkable. X- ray of left knee official read pending, but shows obvious displaced, periprosthetic distal left femur fracture. Hip x-ray official read still pending, but shows no obvious osseous abnormality. EKG showed normal sinus rhythm without evidence of ST elevations or depressions. Pt was treated with ondansetron and morphine. Pt will be admitted to the hospital for treatment of displaced, periprosthetic distal left femur fracture with likely surgical procedure tomorrow. 77-year-old man treated for left distal displaced and periprosthetic femur fracture status post IMN nailing to left distal femur fracture on 02/28/2022. He has done well postoperatively. He was seen evaluated by physical therapy recommended home physical therapy. His pain has been well controlled. We will be on Lovenox for 6 weeks. Plan is to discharge home with services. Diabetes mellitus type 2. Continue metformin Hypertension stable blood pressure during admission. Continue hydrochlorothiazide Macular degeneration continue home eye drops Time Attestation Discharge coordination time: Greater than 30 minutes Quality: Safe Use of Opioids Does Pt have an Active Cancer Diagnosis on the Problem List?: No Quality: Stroke Does the patient have a stroke diagnosis?: No Physical Exam Vital Signs: Vital Signs: Last Vital Signs Temp 98.6 F 03/03/23 02:35 Pulse 87 03/03/23 02:35 Resp 18 03/03/23 02:35 BP 119/66 03/03/23 02:35 Pulse Ox 98 03/03/23 02:35 O2 Del Method Room Air 03/03/23 02:35 O2 Flow Rate 2 03/01/23 03:02 Oxygen Flow Rate 98 03/02/23 11:00 BMI result Body Mass Index 33.0 DS: Data Data Completed and Pending Labs on day of discharge: Laboratory Results - last 24 hr 03/02/23 03/02/23 03/02/23 07:28 10:56 16:01 POC Glucose 155 H 185 H 192 H 03/02/23 19:56 POC Glucose 208 H Discharge Plan Discharge Anticipated Discharge Date/Time: 03/03/23 07:09 Patient Disposition: Home Health Service Discharge Diagnosis: s/p left femur retrograde IM Nail Referrals: [facility] [Other] - 1 Week Jackie Pierre PA-C [Physician T[employer] 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 Continued (DME) Hospital bed See Rx Instructions .Route .MEDSUPPLY Qty: 1 0RF Rx Instructions: duration: 99 days metformin 500 mg tablet 1 tab PO TID brimonidine 0.2 % drops 1 drp ophthalmic (eye) BID valsartan-hydrochlorothiazide 320-12.5 mg tablet 1 tab PO DAILY Discharge Orders: Discharge Order (Routine); Ordered 03/03/23 Ordered By: Nellie Kearney Diet: Advance to usual diet Activity on Discharge: Use cane or walker Stand Alone Forms: Patient Portal Discharge page Care Plan Goals: Restore fxn to left lower extremity Health Concerns: s/p left femur retrograde IM Nail Plan of Treatment: * 25% weightbearing with a walker * NWB ROM as tolerated * Keep dressings clean, dry and intact * No tub bath or shower-Keep dressing clean, dry and intact * Oxycodone 5mg by mouth every 4 hours prn pain * Follow up with orthopedics in 2 weeks Assessment: stable for d/c
[2023-03-03 07:12] VITALS: BP 106/65; PULSE 85; RESP 20; TEMP 36.4; O2SAT 99
[2023-03-03 07:36] LABS: Glucose, Whole Blood 161 mg/dL (60-115)
[2023-03-03] MEDS: Valsartan 320 MG TABLET PO (08:23)
[2023-03-03] MEDS: Enoxaparin Sodium 40 MG/0.4 ML SYRINGE SUBCUT (08:23)
[2023-03-03] MEDS: 0.9 % Sodium Chloride Flush 3 ML SYRINGE IVFLUSH ×3 (08:24→23:08)
[2023-03-03] MEDS: hydroCHLOROthiazide 12.5 MG TABLET PO (08:24)
[2023-03-03] MEDS: Insulin Lispro 100 UNIT/ML 3 ML VIAL SUBCUT ×3 (08:24→20:42)
[2023-03-03 10:24] LABS: Hematocrit 32.2 % (42.0-52.0); Hemoglobin 10.8 g/dl (14.0-18.0)
[2023-03-03] MEDS: Docusate Sodium 100 MG CAPSULE PO (10:46)
[2023-03-03 11:27] LABS: Glucose, Whole Blood 249 mg/dL (60-115)
[2023-03-03 11:35] VITALS: BP 129/63; PULSE 90; RESP 20; TEMP 36.6; O2SAT 99
--- NOTE | 2023-03-03 13:05 | HO.PM.IMPN ---
Subjective Subjective Date of Service: 03/03/23 Review of Systems Follow up femur fx doing well today no nausea, vomiting, diarrhea Physical Exam Vital Signs: Vital Signs: Last Vital Signs Temp 97.8 F 03/03/23 11:35 Pulse 90 03/03/23 11:35 Resp 20 03/03/23 11:35 BP 129/63 03/03/23 11:35 Pulse Ox 99 03/03/23 11:35 O2 Del Method Room Air 03/03/23 11:35 O2 Flow Rate 2 03/01/23 03:02 Oxygen Flow Rate 98 03/02/23 11:00 BMI result Body Mass Index 33.0 Appearing in no acute distress lung sounds are clear to auscultation heart regular rate rhythm, clear S1, S2 positive bowel sounds, abdomen is soft, nontender neuro patient is alert x3, no focal deficits Left knee dsg Objective Data Active Medications Acetaminophen (Acetaminophen 325 Mg Tablet) 650 mg PO Q6H PRN PRN Reason: Pain, Mild (Pain Scale 1-3) Benzonatate (Benzonatate 100 Mg Capsule) 100 mg PO TID PRN PRN Reason: Cough Brimonidine Tartrate (Brimonidine Tartrate 0.2% Oph 5 Ml Bottle) 1 drop EYE-BOTH BID [facility] Last Admin: 03/03/23 11:59 Dose: Not Given Documented By: LUIS ARMANDO Non-Admin Reason: Previously Administered Dextrose (Dextrose 50 % 25 Gm/50 Ml Syringe) 25 gm IVPUSH Q15M PRN; Protocol PRN Reason: per Hypoglycemia Standing Ord. Docusate Sodium (Docusate Sodium 100 Mg Capsule) 100 mg PO DAILY PRN PRN Reason: Constipation Last Admin: 03/03/23 10:46 Dose: 100 mg Documented By: LUIS ARMANDO Enoxaparin Sodium (Enoxaparin Sodium 40 Mg/0.4 Ml Syringe) 40 mg SUBCUT Q24H [facility] Last Admin: 03/03/23 08:23 Dose: 40 mg Documented By: LUIS ARMANDO Glucose (Glucose Gel 15 Gm Gel..Gram.) 15 gm PO Q15M PRN; Protocol PRN Reason: per Hypoglycemia Standing Ord. Hydrochlorothiazide (Hydrochlorothiazide 12.5 Mg Tablet) 12.5 mg PO DAILY@0900 [facility] Last Admin: 03/03/23 08:24 Dose: 12.5 mg Documented By: LUIS ARMANDO Cefazolin Sodium/Dextrose (Ancef) 2 gm in 50 mls @ 100 mls/hr IV POSTOP [facility] Insulin Human Lispro (Insulin Lispro 100 Unit/Ml 3 Ml Vial) 0 unit SUBCUT QIDACHS [facility]; Protocol Last Admin: 03/03/23 12:40 Dose: 4 unit Documented By: LUIS ARMANDO Melatonin (Melatonin 3 Mg Tablet) 6 mg PO BEDTIME PRN PRN Reason: Insomnia Morphine Sulfate (Morphine Sulfate 4 Mg/Ml Cartridge) 4 mg IVPUSH Q4H PRN; Protocol PRN Reason: Pain, Severe (Pain Scale 7-10) Last Admin: 03/03/23 02:32 Dose: 4 mg Documented By: PIEDAD Ondansetron HCl (Ondansetron Hcl 4 Mg/2 Ml Vial) 4 mg IVPUSH Q8H PRN PRN Reason: Nausea and Vomiting Sodium Chloride (0.9 % Sodium Chloride Flush 3 Ml Syringe) 3 ml IVFLUSH QSHIFT [facility] Last Admin: 03/03/23 08:24 Dose: 3 ml Documented By: LUIS ARMANDO Valsartan (Valsartan 320 Mg Tablet) 320 mg PO DAILY@0900 [facility] Last Admin: 03/03/23 08:23 Dose: 320 mg Documented By: LUIS ARMANDO Labs 03/03/23 09:38 02/27/23 12:28 Labs: Laboratory Results - last 24 hr 03/02/23 03/02/23 03/03/23 16:01 19:56 07:15 POC Glucose 192 H 208 H 161 H 03/03/23 11:18 POC Glucose 249 H Assessment and Plan (1) Fracture of distal end of femur: Status: Acute Plan Pt is a 77-year-old male with a PMH significant for?HTN, non-insulin dependent diabetes type 2, hepatitis-C treated in 2016, and macular degeneration who presents to the ED for evaluation of left knee and hip pain after mechanical fall at home. Pt will be admitted to the hospital for treatment of displaced, periprosthetic distal left femur fracture with likely surgical procedure tomorrow. Left distal displaced and periprosthetic femur fracture mechanical fall at home s/p IMN nailing left distal femur fx 02/28/22 Analgesics for pain management lovenox Spm-awibozk-ewhzxcuay diabetes type 2 sliding scale insulin, ada diet HTN Continue home meds Degeneration Continue brimonidine eye drops Full Code Attending:?Dr. Salazar DVT Prophylaxis: Lovenox DISPO plan for dc home when hospital bed arrives continue hospital stay for treatment of?displaced, periprosthetic distal left femur fracture Quality Stroke Does the patient have a stroke diagnosis?: No VTE Prior VTE?: No VTE Risk Level:: Medical - moderate - high VTE Device Contraindication: N/A - Device Ordered VTE Drug Contraindication: Treatment Not Indicated
--- NOTE | 2023-03-03 13:09 | P.PNOP_ITS ---
Subjective Subjective Date of Service: 03/03/23 Interval history: POD 3 s/p Left femur retrograde nail no overnight events resting in bed, pain is tolerable denies cp, sob, palpitations Physical Exam Vital Signs: Vital Signs: Last Vital Signs Temp 97.8 F 03/03/23 11:35 Pulse 90 03/03/23 11:35 Resp 20 03/03/23 11:35 BP 129/63 03/03/23 11:35 Pulse Ox 99 03/03/23 11:35 O2 Del Method Room Air 03/03/23 11:35 O2 Flow Rate 2 03/01/23 03:02 Oxygen Flow Rate 98 03/02/23 11:00 BMI result Body Mass Index 33.0 Const: General: cooperative, healthy appearing and no acute distress Resp: Effort & Inspection: normal respiratory effort and able to speak in complete sentences Cardio: Rate: regular rate Peripheral pulses: Peripheral pulses 2+ throughout GI: Palpation (GI): Soft to palpation Skin: Lesions: no lesions Rashes: no rashes Extrem: Other: left knee dressing is c/d/i. Able to dorsi/plantar flex. Calf is supple and nontender. Sensation intact. Pedal pulse intact. Procedures Date of Service Date of Service: 03/03/23 Progress Note: A&P Assessment and plan (1) Fracture of distal end of femur: Status: Acute Assessment and Plan: * Continue pain mgmnt * Continue lovenox for dvt ppx * PT for LT retrograde nail-25% wb * Dispo planning-Pending PT eval, pain mgmnt Time Spent With Patient Time: Total time managing care of this patient today ____ minutes. Quality Stroke Does the patient have a stroke diagnosis?: No VTE Prior VTE?: No VTE Risk Level:: Medical - moderate - high VTE Device Contraindication: N/A - Device Ordered VTE Drug Contraindication: Treatment Not Indicated
[2023-03-03 15:15] VITALS: BP 133/66; PULSE 86; RESP 20; TEMP 37; O2SAT 99
[2023-03-03 16:36] LABS: Glucose, Whole Blood 142 mg/dL (60-115)
[2023-03-03 19:08] VITALS: BP 126/66; PULSE 88; RESP 18; TEMP 36.5; O2SAT 97
[2023-03-03 20:39] LABS: Glucose, Whole Blood 197 mg/dL (60-115)
[2023-03-03] MEDS: Brimonidine Tartrate 0.2% Oph 5 ML BOTTLE 1 DROP EYE-BOTH (20:42)
[2023-03-03 23:17] VITALS: BP 111/63; PULSE 75; RESP 18; TEMP 36.6; O2SAT 97
[2023-03-04] MEDS: Morphine Sulfate 4 MG/ML CARTRIDGE IVPUSH (02:54)
[2023-03-04 03:24] VITALS: BP 130/69; PULSE 78; RESP 17; TEMP 36.7; O2SAT 97
[2023-03-04 07:32] VITALS: BP 104/57; PULSE 82; RESP 16; TEMP 36.7; O2SAT 100
[2023-03-04 07:40] LABS: Glucose, Whole Blood 213 mg/dL (60-115)
[2023-03-04] MEDS: hydroCHLOROthiazide 12.5 MG TABLET PO (07:59)
[2023-03-04] MEDS: Insulin Lispro 100 UNIT/ML 3 ML VIAL SUBCUT ×2 (08:00→12:15)
[2023-03-04] MEDS: Valsartan 320 MG TABLET PO (08:00)
[2023-03-04] MEDS: Enoxaparin Sodium 40 MG/0.4 ML SYRINGE SUBCUT (08:01)
[2023-03-04] MEDS: Brimonidine Tartrate 0.2% Oph 5 ML BOTTLE 1 DROP EYE-BOTH (08:01)
[2023-03-04] MEDS: 0.9 % Sodium Chloride Flush 3 ML SYRINGE IVFLUSH (08:04)
--- NOTE | 2023-03-04 10:50 | P.DS_ITS ---
DS: Providers Provider Date of Service: 03/04/23 Date of admission: 02/27/23 13:19 Primary care physician: Ray Schofield MD Consults: 02/27/23 13:36 Consult to Orthopedics Routine Consulting Provider: [facility] Reason for consultation: Displaced, periprosthetic distal left femur fracture Has provider been notified: Yes DS: Diagnosis Discharge Diagnosis (1) Fracture of distal end of femur: Status: Acute DS: Summary Hospital Course Hospital Course: History physical as per admitting provider. Pt is a 77-year-old male with a PMH significant for?HTN, non-insulin dependent diabetes type 2, hepatitis-C treated in 2016, and macular degeneration who presents to the ED for evaluation of left knee and hip pain after mechanical fall at home. Patient states that he was on his deck when he slipped and fell on the ice and snow. His leg when back behind him and he heard a ?pop? and then he fell. Denies head strike or loss of consciousness. No lightheadedness or dizziness. Patient was unable to stand up or bear weight on his leg so he crawled to the door to get to a found to call EMS. Patient denies any other acute medical complaints at this time. No chest pain/pressure, palpitations. Denies fever, chills, nausea, vomiting, abdominal pain. Denies right hip or leg pain. Of note, patient had left TKA with subsequent washout and revision. In the ED pt was tachypneic up to 24, and slightly hypertensive up to 143/120, otherwise vitals WNL. Labs were significant for wbc's 11.0, bilirubin 1.3, otherwise grossly unremarkable. X- ray of left knee official read pending, but shows obvious displaced, periprosthetic distal left femur fracture. Hip x-ray official read still pending, but shows no obvious osseous abnormality. EKG showed normal sinus rhythm without evidence of ST elevations or depressions. Pt was treated with ondansetron and morphine. Pt will be admitted to the hospital for treatment of displaced, periprosthetic distal left femur fracture with likely surgical procedure tomorrow. 77-year-old man treated for left distal displaced and periprosthetic femur fracture status post IMN nailing to left distal femur fracture on 02/28/2022. He has done well postoperatively. He was seen evaluated by physical therapy recommended home physical therapy. His pain has been well controlled. He will be on Lovenox for 6 weeks. Plan is to discharge home with services. Diabetes mellitus type 2. Continue metformin Hypertension stable blood pressure during admission. Continue hydrochlorothiazide Macular degeneration continue home eye drops Time Attestation Discharge coordination time: Greater than 30 minutes Quality: Safe Use of Opioids Does Pt have an Active Cancer Diagnosis on the Problem List?: No Quality: Stroke Does the patient have a stroke diagnosis?: No Physical Exam Vital Signs: Vital Signs: Last Vital Signs Temp 98.1 F 03/04/23 07:32 Pulse 82 03/04/23 07:32 Resp 16 03/04/23 07:32 BP 104/57 L 03/04/23 07:32 Pulse Ox 100 03/04/23 07:32 O2 Del Method Room Air 03/04/23 07:32 O2 Flow Rate 2 03/01/23 03:02 Oxygen Flow Rate 98 03/02/23 11:00 BMI result Body Mass Index 33.0 Const: Other: General awake alert x3,in no acute distress Neck no JVD lung sounds are clear to auscultation heart regular rate rhythm, clear S1, S2 positive bowel sounds, abdomen is soft, nontender neuro patient is alert x3, no focal deficits Psych appropriate affect DS: Data Data Completed and Pending Labs on day of discharge: Laboratory Results - last 24 hr 03/03/23 03/03/23 03/03/23 11:18 16:20 20:21 POC Glucose 249 H 142 H 197 H 03/04/23 07:35 POC Glucose 213 H Discharge Plan Discharge Anticipated Discharge Date/Time: 03/03/23 07:09 Patient Disposition: Home Health Service Discharge Diagnosis: s/p left femur retrograde IM Nail Referrals: [facility] [Other] - 1 Week Jackie Pierre PA-C [Physician Solar Manager] - 03/12/23 2:45 pm Discharge Medications: New acetaminophen 325 mg Tablet 650 mg PO Q6H PRN (Reason: Pain, Mild (Pain Scale 1-3)) 30 Days Qty: 240 0RF docusate sodium 100 mg Capsule 100 mg PO DAILY PRN (Reason: Constipation) 90 Days Qty: 90 0RF enoxaparin 40 mg/0.4 mL Syringe 40 mg subcut Q24H 42 Days Qty: 16.8 0RF oxycodone 5 mg tablet 5 mg PO Q4H PRN (Reason: pain (scale score 4-6)) 7 Days Qty: 42 0RF Rx Instructions: Partial Fill upon patient request. Continued (DME) Hospital bed See Rx Instructions .Route .MEDSUPPLY Qty: 1 0RF Rx Instructions: duration: 99 days metformin 500 mg tablet 1 tab PO TID brimonidine 0.2 % drops 1 drp ophthalmic (eye) BID valsartan-hydrochlorothiazide 320-12.5 mg tablet 1 tab PO DAILY Discharge Orders: Discharge Order (Routine); Ordered 03/04/23 Ordered By: Dwight Yu Diet: Advance to usual diet Activity on Discharge: Use cane or walker Stand Alone Forms: Patient Portal Discharge page Care Plan Goals: Restore fxn to left lower extremity Health Concerns: s/p left femur retrograde IM Nail Plan of Treatment: * 25% weightbearing with a walker * NWB ROM as tolerated * Keep dressings clean, dry and intact * No tub bath or shower-Keep dressing clean, dry and intact * Oxycodone 5mg by mouth every 4 hours prn pain * Follow up with orthopedics in 2 weeks Assessment: stable for d/c
[2023-03-04 11:20] LABS: Glucose, Whole Blood 232 mg/dL (60-115)
--- NOTE | 2023-03-04 11:53 | W.MHC.F2F ---
Service Date Service Date: 03/04/23 Encounter Date of encounter: 03/04/23 Reasons for Services Signs and symptoms assessed: Left femur surgery limiting activity,pain Reason for physical therapy: home safety and mobility Homebound: Leaving the home is medically contraindicated at this time without the asist of a device and/or another person due th the listed conditions above and below. Reason homebound: pain with transfers Certification: Based on the above findings, I certify that this patient is confined to the home and needs intermittent senior living care, physical therapy and/or speech therapy, or continues to need occupational therapy. The patient is under my care, and I have initiated the establishment of the plan of care. The patient will be followed by a physician who will periodically review the plan of care. Time Spent With Patient Time: Total time managing care of this patient today ____ minutes.
--- NOTE | 2023-03-04 11:55 | MHC.CM.PN ---
hospitial bed ddelivered amb booked for 1 today to take pt home w/[facility]
[2023-03-04 12:00] VITALS: BP 130/70; PULSE 80; RESP 16; TEMP 36.7; O2SAT 97
--- NOTE | 2023-03-04 15:48 | W.MHC.F2F ---
Service Date Service Date: 03/04/23 Encounter Date of encounter: 03/04/23 Reasons for Services Signs and symptoms assessed: Status post femur surgery/pain difficulty in ambulation Reason for long term: administration of IV, SQ, or IM injection Reason for physical therapy: home safety and mobility Homebound: Leaving the home is medically contraindicated at this time without the asist of a device and/or another person due th the listed conditions above and below. Reason homebound: pain with transfers and weakness related to hospital stay Certification: Based on the above findings, I certify that this patient is confined to the home and needs intermittent long term care, physical therapy and/or speech therapy, or continues to need occupational therapy. The patient is under my care, and I have initiated the establishment of the plan of care. The patient will be followed by a physician who will periodically review the plan of care. Time Spent With Patient Time: Total time managing care of this patient today ____ minutes.
== END 2023-03-04 13:38 | disposition home health service (06) | DRG 481 ==
LOC: HO.ED 12:11 → HO.EDOVER 13:33 → HO.S3 15:24
PROVIDERS: Nurse Practitioner Acute Care; Orthopaedic Surgery; Physician Assistant; Admitting Provider Student in an Organized Health Care Education/Training Program; Emergency Provider Emergency Medicine; PCP Internal Medicine; Visit Provider Hospitalist
PROC: 0QSC36Z Reposition Left Lower Femur with Intramedullary Internal Fixation Device, Percutaneous Approach (ICD-10-PCS; principal; 2023-02-28 12:30)
DX: S72.492A Other fracture of lower end of left femur, initial encounter for closed fracture (principal); M97.12XA Periprosthetic fracture around internal prosthetic left knee joint, initial encounter; H35.30 Unspecified macular degeneration; W19.XXXA Unspecified fall, initial encounter; I10 Essential (primary) hypertension; E11.9 Type 2 diabetes mellitus without complications; Z79.84 Long term (current) use of oral hypoglycemic drugs; Z79.899 Other long term (current) drug therapy
CPT/HCPCS: 36415; 73502; 73560; 80048; 80076; 82947; 85014; 85018; 85025; 85610; 86850; 86900; 86901; 93005; 97110; 97116; 97162; 97165; 97530; 99024; 99285; C1713; C1769; J0690; J1170; J1650; J2270; J2405; J2704; J2795

== ENCOUNTER 2023-02-27 13:19 | Outpatient (BNV) | payer MEDICARE, SELFPAY | END 2023-02-27 14:09 | PROVIDERS: Admitting Provider Student in an Organized Health Care Education/Training Program; Emergency Provider Emergency Medicine; PCP Internal Medicine; Visit Provider Internal Medicine | DX: I49.1 Atrial premature depolarization (principal) | CPT/HCPCS: 93010 ==

== ENCOUNTER → 2023-02-27 13:19 | Outpatient (BNV) | payer MEDICARE, SELFPAY | PROVIDERS: Admitting Provider Student in an Organized Health Care Education/Training Program; Emergency Provider Emergency Medicine; PCP Internal Medicine; Visit Provider Nurse Practitioner Acute Care | DX: M97.02XA Periprosthetic fracture around internal prosthetic left hip joint, initial encounter (principal); E11.59 Type 2 diabetes mellitus with other circulatory complications | CPT/HCPCS: 99223; 99232; 99239; G0180 ==

== ENCOUNTER 2023-03-12 10:07 | Outpatient (REF) | payer MEDICARE, SELFPAY ==
--- NOTE | ~2023-03-12 | XR_ITS ---
EXAMINATION: XR FEMUR, LEFT CLINICAL INFORMATION: Fracture COMPARISON: 02/27/2023 TECHNIQUE: AP and lateral views of the left femur were obtained. FINDINGS: Intramedullary yuliana and transverse nails affix the distal femur with surrounding comminuted fracture fragments again noted. Expected postoperative changes including soft tissue swelling and gas. There is mild posterior displacement of the distal fracture fragment XR/XR femur LT 2V IMPRESSION: Intramedullary yuliana and transverse nails affixing the distal femur with surrounding comminuted fracture fragments again noted.
== END 2023-03-12 10:08 | disposition home or self-care (01) ==
LOC: HO.HOSX 10:07
PROVIDERS: Visit Provider Physician Assistant
DX: S72.492D Other fracture of lower end of left femur, subsequent encounter for closed fracture with routine healing (principal)
CPT/HCPCS: 73552; 99212

== ENCOUNTER 2023-03-12 13:46 | Outpatient (AMB) | payer MEDICARE, SELFPAY ==
--- NOTE | 2023-03-12 14:21 | A.OFFVIS_ITS ---
Intake Intake Visit Reasons: PO-s/p Left femur retrograde nail 02/28/23 NE Intake Note: Danny is a 77 year old male who presents today for a post op appointment s/p Left femur retrograde nail 02/28/23 NE. Patient reports he having a twisting sensation when walking. His pain radiates up to his hip when he is walking per patient. Pain is better when resting. Allergies No Known Allergies [No Known Allergies*] Allergy (Verified 03/12/23 14:24) HPI PO-s/p Left femur retrograde nail 02/28/23 NE HPI Details 77-year-old male who presents in the off ice today 12 days status post left distal femur retrograde IM nailing, which was performed on 02/28/[address] Cheng. The patient reports having a twisting sensation after the wrap was reapplied while ambulating and he states his pain radiated up to his hip. His pain decrease when at rest. He denies the use of a cane prior to the accident. [facility] Medical History (Updated 03/12/23 @ 14:39 by Tonya Zelaya) PONV (postoperative nausea and vomiting) HTN (hypertension) Diabetes Liver fibrosis Hepatitis C Surgical History Hx of cataract extraction History of esophagogastroduodenoscopy (EGD) H/O colonoscopy History of total left knee replacement Hx of rotator cuff surgery Social History Household Members: Spouse Housing: House Do you presently have visiting nurse or other home services: No Patient Tobacco Use Status: Never used Tobacco service: No Review of Systems Const All systems reviewed & are unremarkable except as noted in HPI and below Physical Exam Const General: cooperative, healthy appearing and no acute distress Resp Effort & Inspection: normal respiratory effort and able to speak in complete sentences Cardio Rate: regular rate Peripheral pulses: Peripheral pulses 2+ throughout GI Palpation (GI): Soft to palpation Skin Lesions: no lesions Rashes: no rashes Extrem Other: Left lower extremity: Incision site is clean, dry, and intact. [place] intact. No surrounding erythema or drainage. No signs of infection. Large effusion. NVI. Assessment & Plan Assessment & Plan (1) Fracture of distal end of femur: Comment: Left distal femur retrograde IM nailing 02/28/2023 Dr. Marc Cheng. Code(s): S72.409A - Unspecified fracture of lower end of unspecified femur, initial encounter for closed fracture Qualifiers: Encounter type: initial encounter Fracture morphology: other fracture Fracture type: closed Laterality: left Qualified Code(s): S72.492A - Other fracture of lower end of left femur, initial encounter for closed fracture Plan Mr. Peraza is a 77-year-old male who presents in the office today 12 days status post left distal femur retrograde IM nailing, which was performed on 02/28/[address] Cheng. The patient reports having a twisting sensation after the wrap was reapplied while ambulating and he states his pain radiated up to his hip. His pain decrease when at rest. He denies the use of a cane prior to the accident. [place] were removed and steri-stripes while in the office today. He may continue to weight bear as tolerated with the assistance of the walker for support. I would like for him to continue to work on glute, quad, core strengthening, and gait training. Once the patient has completed home physical therapy session he will transition to out patient therapy. An order for out patient physical therapy was placed today. Follow up will be in 4 weeks with repeat, or sooner if needed. X-rays of the left femur which were obtained while in the office today and were reviewed by me, Jackie Pierre PA-C, revealed intact orthopedic hardware with routine healing. Orders: Orders XR femur LT 2V Today S72.409A - Unspecified fracture of lower end of unspecified femur, initial encounter for closed fracture Patient Instructions: Scribed for Jackie Pierre PA-C by Tonya Zelaya medical billing instructor, on 03/12/2023 at 1:51 pm, EST. Coding Level of Care Code Global (26719) Diagnoses Other closed fracture of distal end of left femur, initial encounter S72.492A Encounter type: initial encounter Fracture morphology: other fracture Fracture type: closed Laterality: left
== END 2023-03-12 14:50 | disposition home or self-care (01) ==
PROVIDERS: PCP Internal Medicine; Visit Provider Physician Assistant
DX: S72.492A Other fracture of lower end of left femur, initial encounter for closed fracture (principal)
CPT/HCPCS: 99024

== ENCOUNTER 2023-04-10 11:24 | Outpatient (AMB) | payer MEDICARE, SELFPAY ==
--- NOTE | 2023-04-10 11:27 | A.OFFVIS_ITS ---
Intake Intake Visit Reasons: PO-s/p Left femur retrograde nail 02/28/23 NE Intake Note: Danny is a 77 year old male who presents today for a post op appointment s/p Left femur retrograde nail 02/28/23 NE. Patient reports he noticed some swelling which started a week and a half ago. He states that PT noticed the swelling and they stated it could be a vein leaking . However PT stated that everything else looks good. Allergies No Known Allergies [No Known Allergies*] Allergy (Verified 04/10/23 11:52) HPI PO-s/p Left femur retrograde nail 02/28/23 NE HPI Details 77-year-old male who presents in the off ice today 6 weeks status post left distal femur retrograde IM nailing, which was performed on 02/28/[address] Cheng. I last saw the patient in the office on 03/12/2023 where he was instructed to weight bear as tolerated with the assistance of a walker. He was to transition to out patient physical therapy once home therapy was completed. While in the office today the patient reports he noticed edema which started a week and a half ago. He states that physical therapy noticed the swelling and they stated it could be a ?vein leaking?. However physical therapy stated everything else looks good. [facility] Medical History (Updated 03/12/23 @ 14:39 by Tonya Zelaya) PONV (postoperative nausea and vomiting) HTN (hypertension) Diabetes Liver fibrosis Hepatitis C Surgical History Hx of cataract extraction History of esophagogastroduodenoscopy (EGD) H/O colonoscopy History of total left knee replacement Hx of rotator cuff surgery Social History Household Members: Spouse Housing: House Do you presently have visiting nurse or other home services: No Patient Tobacco Use Status: Never used Tobacco service: No Review of Systems Const All systems reviewed & are unremarkable except as noted in HPI and below Physical Exam Const General: cooperative, healthy appearing and no acute distress Resp Effort & Inspection: normal respiratory effort and able to speak in complete sentences Cardio Rate: regular rate Peripheral pulses: Peripheral pulses 2+ throughout GI Palpation (GI): Soft to palpation Skin Lesions: no lesions Rashes: no rashes Extrem Other: Left femur: Incision site is well approximated and completely healed. No signs of infection. No surrounding erythema or drainage. ROM is 0-110 degrees. Does have mild to moderate lymphedema in the left lower extremity. Assessment & Plan Assessment & Plan (1) Fracture of distal end of femur: Comment: Left distal femur retrograde IM nailing 02/28/2023 Dr. Marc Cheng. Code(s): S72.409A - Unspecified fracture of lower end of unspecified femur, initial encounter for closed fracture Qualifiers: Encounter type: initial encounter Fracture morphology: other fracture Fracture type: closed Laterality: left Qualified Code(s): S72.492A - Other fracture of lower end of left femur, initial encounter for closed fracture Plan Mr. Peraza is a 77-year-old male who presents in the office today 6 weeks status post left distal femur retrograde IM nailing, which was performed on 02/28/[address] Cheng. I last saw the patient in the office on 03/12/2023 where he was instructed to weight bear as tolerated with the assistance of a walker. He was to transition to out patient physical therapy once home therapy was completed. While in the office today the patient reports he noticed edema which started a week and a half ago. He states that physical therapy noticed the swelling and they stated it could be a ?vein leaking?. However physical therapy stated everything else looks good. The patient was evaluated by physical therapy and they thought that he would benefit from additional lymphatic treatment. An order will be placed for this. Follow up will be in 6 weeks with repeat x-rays, or sooner if needed. X-rays of the left femur which were obtained while in the office today and were reviewed by me, Jackie Pierre PA-C, revealed intact orthopedic hardware with routine healing. Orders: Orders XR femur LT 2V 04/10/23 OT Evaluation and Treatment 04/10/23 S72.409A - Unspecified fracture of lower end of unspecified femur, initial encounter for closed fracture Patient Instructions: Scribed by Tonya Zelaya medical assistant supervisor, for Jackie Pierre PA-C on 04/10/2023 at 11:25 am, EST. Coding Level of Care Code Global (81946) Diagnoses Other closed fracture of distal end of left femur, initial encounter S72.492A Encounter type: initial encounter Fracture morphology: other fracture Fracture type: closed Laterality: left
== END 2023-04-10 11:57 | disposition home or self-care (01) ==
PROVIDERS: PCP Internal Medicine; Visit Provider Physician Assistant
DX: S72.492A Other fracture of lower end of left femur, initial encounter for closed fracture (principal)
CPT/HCPCS: 99024

== ENCOUNTER 2023-04-10 11:52 | Outpatient (REF) | payer MEDICARE, SELFPAY ==
--- NOTE | ~2023-04-10 | XR_ITS ---
EXAMINATION: XR FEMUR, LEFT CLINICAL INFORMATION: Pain COMPARISON: 03/12/2023 TECHNIQUE: AP and lateral views of the left femur were obtained. FINDINGS: There is stable position of intramedullary yuliana and distal femoral screws placed for compression of comminuted fracture in the distal femur. Fragments are close to anatomical alignment. There is minimal posterior displacement of distal fragment of fracture. There is separate fragment adjacent to the fracture line medial posterior. There is interval callus formation. Visualized left knee prosthesis is in stable position. XR/XR femur LT 2V IMPRESSION: Postsurgical changes with interval healing of comminuted fracture of left distal femur with hardware in place
== END 2023-04-10 11:53 | disposition home or self-care (01) ==
LOC: HO.HOSX 11:52
PROVIDERS: Visit Provider Physician Assistant
DX: S72.492D Other fracture of lower end of left femur, subsequent encounter for closed fracture with routine healing (principal); X58.XXXD Exposure to other specified factors, subsequent encounter; Z98.890 Other specified postprocedural states
CPT/HCPCS: 73552; 99212

== ENCOUNTER 2023-05-22 06:19 | Outpatient (REF) | payer MEDICARE, SELFPAY ==
--- NOTE | ~2023-05-22 | XR_ITS ---
EXAMINATION: XR FEMUR, LEFT CLINICAL INFORMATION: Fracture of lower end of left femur. COMPARISON: . TECHNIQUE: AP and lateral views of the left femur were obtained, 4 views total. FINDINGS: Redemonstration of intramedullary yuliana and distal femoral screws transfixing previously noted comminuted fracture of the distal femur. Fracture fragments are similar in alignment. There is increased abundant bridging callus formation. Degenerative changes in the left hip. Hardware appears intact. Knee joint effusion present. Visualized portion of the knee prosthesis appears stable. XR/XR femur LT 2V IMPRESSION: Healing comminuted fracture of the distal femur status post ORIF.
== END 2023-05-22 06:20 | disposition home or self-care (01) ==
LOC: HO.HOSX 06:19
PROVIDERS: Visit Provider Physician Assistant
DX: S72.492D Other fracture of lower end of left femur, subsequent encounter for closed fracture with routine healing (principal); I89.0 Lymphedema, not elsewhere classified
CPT/HCPCS: 73552; 99212

== ENCOUNTER 2023-05-22 09:52 | Outpatient (AMB) | payer MEDICARE, SELFPAY ==
--- NOTE | 2023-05-22 10:33 | A.OFFVIS_ITS ---
Intake Intake Visit Reasons: ov-s/p Left femur retrograde nail 02/28/23 NE Intake Note: Danny is a 77 year old male who presents today for a follow up s/p Left femur retrograde nail 02/28/23 NE. Patient reports he is doing well, no pain or discomfort. He states that he is doing very well with PT he wants to work on his strengthening. Patient expresses that he would like to see the x rays. Allergies No Known Allergies [No Known Allergies*] Allergy (Verified 05/22/23 10:41) HPI ov-s/p Left femur retrograde nail 02/28/23 NE HPI Details 77-year-old male who presents in the off ice today 3 months status post left distal femur retrograde IM nailing, which was performed on 02/28/[address] Cheng. I last saw the patient in the office on 04/10/2023, when a new order for PT was made. While in the office the patient reports he is doing well. Denies pain or discomfort. Patient presents in the office using one crutch. Confirms he is working with PT to wean off this as well. [facility] Medical History (Updated 04/16/23 @ 16:07 by Jackie Pierre PA-C) PONV (postoperative nausea and vomiting) HTN (hypertension) Diabetes Liver fibrosis Hepatitis C Surgical History Hx of cataract extraction History of esophagogastroduodenoscopy (EGD) H/O colonoscopy History of total left knee replacement Hx of rotator cuff surgery Social History Household Members: Spouse Housing: House Do you presently have visiting nurse or other home services: No Patient Tobacco Use Status: Never used Tobacco service: No Review of Systems Const All systems reviewed & are unremarkable except as noted in HPI and below Physical Exam Const General: cooperative, healthy appearing and no acute distress Resp Effort & Inspection: normal respiratory effort and able to speak in complete sentences Cardio Rate: regular rate Peripheral pulses: Peripheral pulses 2+ throughout GI Palpation (GI): Soft to palpation Skin Lesions: no lesions Rashes: no rashes Extrem Other: Left femur: Incision site is clean, dry, and intact. ROM is 0-120 degrees. Mild lymphedema. No signs of infection. NVI. Assessment & Plan Assessment & Plan (1) Fracture of distal end of femur: Comment: Left distal femur retrograde IM nailing 02/28/2023 Dr. Marc Cheng. Code(s): S72.409A - Unspecified fracture of lower end of unspecified femur, initial encounter for closed fracture Qualifiers: Encounter type: initial encounter Fracture morphology: other fracture Fracture type: closed Laterality: left Qualified Code(s): S72.492A - Other fracture of lower end of left femur, initial encounter for closed fracture (2) Lymphedema of left lower extremity: Code(s): I89.0 - Lymphedema, not elsewhere classified Plan Mr. Peraza is a 77-year-old male who presents in the office today 3 months status post left distal femur retrograde IM nailing, which was performed on 02/28/[address] Cheng. I last saw the patient in the office on 04/10/2023, when a new order for PT was made. While in the office the patient reports he is doing well. Denies pain or discomfort. Patient presents in the office using one crutch. Confirms he is working with PT to wean off this as well. Patient will continue to work with PT with anticipation of discontinuing the use of the remaining crutch in the next 1-2 weeks. Follow up will be in 8 weeks with repeat x-rays and anticipated discharge, or sooner if needed. X-rays of the left lower extremity which were obtained while in the office today and were reviewed by me, Jackie Pierre PA-C, revealed intact orthopedic hardware with routine healing. Orders: Orders XR femur LT 2V Today S72.492A - Other fracture of lower end of left femur, initial encounter for closed fracture Patient Instructions: Scribed by Tonya Zelaya health care / medical job titles, for Jackie Pierre PA-C on 05/22/2023 at 9:54 am, EST. Coding Level of Care Code Global (71106) Diagnoses Other closed fracture of distal end of left femur, initial encounter S72.492A Encounter type: initial encounter Fracture morphology: other fracture Fracture type: closed Laterality: left Lymphedema of left lower extremity I89.0
== END 2023-05-22 10:50 | disposition home or self-care (01) ==
PROVIDERS: PCP Internal Medicine; Visit Provider Physician Assistant
DX: S72.492A Other fracture of lower end of left femur, initial encounter for closed fracture (principal); I89.0 Lymphedema, not elsewhere classified
CPT/HCPCS: 99024

== ENCOUNTER 2023-06-09 14:00 | Outpatient (RCR) | payer MEDICARE, SELFPAY ==
--- NOTE | 2023-04-27 15:00 | MHC.OT.OLE ---
[address] [phone] F: [phone] Occupational Therapy Lymphedema Evaluation Patient Name: Danny Peraza Diagnosis: (B)LE Lymphedema Date of Onset: 04/27/23 Attending Provider: Jackie Pierre Prescribed Treatment: Follow Up Appointment: History of Current Condition: Patient is a 77 year old male with PMHX of DM, liver fibrosis, Hepatitis C who was referred to skilled OT/ lymphedema therapy for swelling of the lower extremities after his left distal femur retrograde IM nailing on 02/2023. He reported he noticed the swelling after surgery when he was standing at the kitchen counter for a period of time, he noticed his knee just blew up. He reports minimal pain and difficulty with performing self care tasks and house hold chores. Significant Medical History: PONV (postoperative nausea and vomiting) HTN (hypertension) Diabetes Liver fibrosis Hepatitis C Hx of cataract extraction History of esophagogastroduodenoscopy (EGD) H/O colonoscopy History of total left knee replacement Hx of rotator cuff surgery Precautions/Contraindications: No abdominal MLD, no neck sequence Patient Goals: To get knee back to normal Hand Dominance: Observations: Outcome Measures: Prior Level of Function and Occupation Living Situation: Lives with his Family and/or Social Report: Patient is the care for his who suffers from memory loss Self-Mcf[facility] Support: (I)ADLs/ IADLs 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 Vision: Balance: Pain Assessment Pain Score: Pain Scale Used: Pain Location and Description: (L)lateral side of the knee Aggravating Factors: Alleviating Factors: Skin and Soft Tissue Assessment Skin and Soft Tissue: Swelling Comments: intact, hemosiderin staining Nerve assessment Ulnar Nerve: Median Nerve: Radial Nerve: Comments: Sensory Assessment Temperature: Light Touch: Proprioception: Vibration: Comments: Administered the LLIS measurement of lymph volume Edema Assessment Upper Extremity: Lower Extremity: Comments: Dexterity Assessment Dexterity: Comments: Special Tests Comments: AROM (PROM) Strength Lower Extremity Hip Flexion: Knee Flexion: Knee Extension: Ankle Dorsiflexion: Ankle Plantarflexion: Ankle Eversion: Ankle Inversion: Comments: Cervical Flexion: Extension: Lateral Flexion: Rotation: Comments: Shoulder Flexion: Extension: Abduction: Internal Rotation: External Rotation: Comments: Flexion: Extension: Abduction: Internal Rotation: External Rotation: Comments: Elbow Flexion: Extension: Forearm Pronation: Forearm Supination: Comments: Flexion: Extension: Forearm Pronation: Forearm Supination: Comments: Wrist Flexion: Extension: Ulnar Deviation: Radial Deviation: Comments: Flexion: Extension: Ulnar Deviation: Radial Deviation: Comments: Thumb Thumb CMC Flexion: Thumb MCP Flexion: Thumb IP Flexion: Radial Abduction: Palmar Abduction: Opposition: Comments: Digits Index MCP: PIP: DIP: Long MCP: PIP: DIP: Ring MCP: PIP: DIP: Small MCP: PIP: DIP: Comments: Gross Grasp: Lateral Pinch: Two-Point Pinch: Three-Jaw Shaggy: Comments: Patient Education Primary Language: Yoruba Brass Sorter Required: Current Knowledge: Teaching Method: Education Needs Identified on Evaluation: How did patient/family demonstrate learning? Barriers to Learning: Readiness for Learning: Who was educated? Comments: Plan of Care Assessment: Patient was referred for swelling after his (L) left distal femur retrograde IM nailing on 02/2023. Patient reports he lives with his in single family home and is retired. 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 Based on initial evaluation patient presents with stage II lower (B) extremity lymphedema with intact skin with hemosiderin staining and pitting. Patient has a scare over his left knee from his recent surgery. His current lymph volume measurements are as follows: (R)333cm, and (L)339.4cm a 6cm difference. Lymphedema Life Impact Scale= 35% indicating impact on patient's daily life. Patient's CLOF is min (A) lower extremity self care tasks as patient presents with impaired strength, impaired ROM, pain, impaired skin integrity and impaired performance during self care tasks. Due to the documented impairments it is recommended that patient receive skilled OT/ lymphedema therapy in order to decrease lymph volume, maintain skin integrity/ joint integrity, decrease pain and increase patient's quality of life. Thank you for your referral. STG Duration: 2 weeks Short Term Goals: Patient will decrease (R)LE by 10% lymph volume Patient will decrease (L)LE by 10% lymph volume LTG Duration: 4 weeks [place] [employer] Goals: Patient will be (I) with donning/doffing of compression garments Patient will be (I) with skin care/ hygiene routine to decrease risk of infection Patient will be (I) with HEP Patient will be (I) with self manual lymph drainage Frequency and Duration: The patient will be seen 4x a week for 2 weeks decrease to 3x a week for 4 weeks Treatment Plan: Treatment Plan Comments: Skilled OT evaluation and treat Lymphedema Treatment Plan: Compression Bandaging Exercise: Stretching, strengthening, manual therapy Family/Caregiver Training Manual Lymphatic Drainage Other Referral for compression garment and instructions for donning/doffing Self Care Training: bandaging, skin care, self massage Skin Care Education Lymphedema Treatment Plan Comments: 4x a week for 2 weeks, decrease to 3x a week for 2 weeks Electronically Signed By: Vanessa Rene OTR/L, CLT Reviewed/agree with student documentation: Therapist: Please sign and return to therapist, thank you for your referral.
== END 2023-08-28 08:33 | disposition home or self-care (01) ==
LOC: HO.OT 14:00
PROVIDERS: PCP Internal Medicine; Visit Provider Physician Assistant
DX: I89.0 Lymphedema, not elsewhere classified (principal)
CPT/HCPCS: 97110; 97140; 97166; 97535

== ENCOUNTER 2023-07-17 08:35 | Outpatient (REF) | payer MEDICARE, SELFPAY ==
--- NOTE | ~2023-07-17 | XR_ITS ---
EXAMINATION: XR FEMUR, LEFT CLINICAL INFORMATION: Fracture. COMPARISON: Most recent left femur radiographs dated 05/22/2023. TECHNIQUE: AP and lateral views of the left femur were obtained. FINDINGS: Chronic distal femoral fracture in unchanged anatomic alignment with interval increase in new bone/callus formation. Exact degree of osseous bridging cannot be evaluated on plain radiographs, however, appears slightly increased. Associated femoral ORIF is redemonstrated without hardware fracture or perihardware lucency to suggest loosening or infection. No new fracture or dislocation. Mild left hip osteoarthritis, unchanged. No femoral head avascular necrosis. Partially visualized left hip arthroplasty without evidence of hardware at location. Atherosclerotic calcifications. XR/XR femur LT 2V IMPRESSION: 1. Chronic distal femoral fracture in unchanged anatomic alignment with interval increase in new bone/callus formation. Exact degree of osseous bridging cannot be evaluated on plain radiographs, however, appears slightly increased. 2. Femoral MARINA without evidence of hardware complication. 3. Mild left hip osteoarthritis, unchanged.
== END 2023-07-17 08:36 | disposition home or self-care (01) ==
LOC: HO.HOSX 08:35
PROVIDERS: Visit Provider Physician Assistant
DX: S72.492D Other fracture of lower end of left femur, subsequent encounter for closed fracture with routine healing (principal); I89.0 Lymphedema, not elsewhere classified; X58.XXXD Exposure to other specified factors, subsequent encounter
CPT/HCPCS: 73552; 99212

== ENCOUNTER 2023-07-17 09:31 | Outpatient (AMB) | payer MEDICARE, SELFPAY ==
--- NOTE | 2023-07-17 09:52 | A.OFFVIS_ITS ---
Intake Visit Reasons: ov-s/p Left femur retrograde nail 02/28/23 N Intake Note: Danyn is a 77 year old male who presents today for a follow up s/p Left femur retrograde nail 02/28/23 NE. Patient reports he is doing well, no pain or discomfort. He states that he is doing very well with PT. Allergies No Known Allergies [No Known Allergies*] Allergy (Verified 07/17/23 09:53) HPI HPI ov-s/p Left femur retrograde nail 02/28/23 N: Details: 78-year-old male who presents in the office today 4 months status post left distal femur retrograde IM nailing, which was performed on 02/28/[address] Cheng. I last saw the patient in the office on 05/22/2023 when he was encouraged to continue to work with PT with anticipation of discontinuing the remaining crutch. While in the office today the patient reports he is doing well with no pain or discomfort. He also confirms participating in PT and states he is doing very well. [facility] Medical History (Updated 04/16/23 @ 16:07 by Jackie Pierre PA-C) PONV (postoperative nausea and vomiting) HTN (hypertension) Diabetes Liver fibrosis Hepatitis C Surgical History Hx of cataract extraction History of esophagogastroduodenoscopy (EGD) H/O colonoscopy History of total left knee replacement Hx of rotator cuff surgery Social History Household Members: Spouse Housing: House Do you presently have visiting nurse or other home services: No Patient Tobacco Use Status: Never used Tobacco service: No Review of Systems Const All systems reviewed & are unremarkable except as noted in HPI and below Physical Exam Const General: cooperative, healthy appearing and no acute distress Resp Effort & Inspection: normal respiratory effort and able to speak in complete sentences Cardio Rate: regular rate Peripheral pulses: Peripheral pulses 2+ throughout GI Palpation (GI): Soft to palpation Skin Lesions: no lesions Rashes: no rashes Extrem Other: Left femur: Incision sites are clean, dry, and intact. ROM is 0-120 degrees. Mild lymphedema. No signs of infection. NVI. Assessment & Plan Assessment & Plan (1) Fracture of distal end of femur: Comment: Left distal femur retrograde IM nailing 02/28/2023 Dr. Marc Cheng. Code(s): S72.409A - Unspecified fracture of lower end of unspecified femur, initial encounter for closed fracture Category: Medical Qualifiers: Encounter type: initial encounter Fracture morphology: other fracture Fracture type: closed Laterality: left Qualified Code(s): S72.492A - Other fracture of lower end of left femur, initial encounter for closed fracture (2) Lymphedema of left lower extremity: Code(s): I89.0 - Lymphedema, not elsewhere classified Category: Medical Plan Mr. Peraza is a 78-year-old male who presents in the office today 4 months status post left distal femur retrograde IM nailing, which was performed on 02/28/[address] Cheng. I last saw the patient in the office on 05/22/2023 when he was encouraged to continue to work with PT with anticipation of discontinuing the remaining crutch. While in the office today the patient reports he is doing well with no pain or discomfort. He also confirms participating in PT and states he is doing very well. Not using any assistive devices. A referral to Physiatry was made in the office today due to a concern of lower back pain and possible leg length discrepancy. This appointment was made in the office today. The patient may return to normal activities as tolerated, using pain as his guide. Follow-up with orthopedics will be PRN, or sooner if needed. X-rays of the left femur which were obtained while in the office today and were reviewed by me, Jackie Pierre PA-C, revealed routine healing of a left distal femur fracture. Orders: Orders XR femur LT 2V Today S72.492A - Other fracture of lower end of left femur, initial encounter for closed fracture Patient Instructions: Scribed by Tonay Zelaya medical doctor md/medical director, for Jackie Pierre PA-C on 07/17/2023 at 9:34 am, EST. Coding Level of Care Code Est Pt Level 3 (10951) Diagnoses Other closed fracture of distal end of left femur, initial encounter S72.492A Encounter type: initial encounter Fracture morphology: other fracture Fracture type: closed Laterality: left Lymphedema of left lower extremity I89.0
== END 2023-07-17 10:34 | disposition home or self-care (01) ==
PROVIDERS: PCP Internal Medicine; Visit Provider Physician Assistant
DX: S72.492D Other fracture of lower end of left femur, subsequent encounter for closed fracture with routine healing (principal); I89.0 Lymphedema, not elsewhere classified
CPT/HCPCS: 99213

== ENCOUNTER 2023-08-06 10:33 | Outpatient (REF) | payer MEDICARE, SELFPAY ==
--- NOTE | ~2023-08-06 | XR_ITS ---
EXAMINATION: XR BONE LENGTH CLINICAL INFORMATION: Other fracture of lower leg and of femur, initial encounter, leg length study. History of chronic distal femoral fracture with femoral ORIF. Left hip arthroplasty. COMPARISON: July 17, 2023 and prior left femur. TECHNIQUE: 3 views of bilateral lower legs obtained employing leg length protocol. FINDINGS: Limited evaluation of the knee is notable for redemonstration of femoral ORIF. Redemonstration of chronic distal femoral fracture with bridging new bone/callus formation. Evaluation of prosthesis and fracture limited on these images. Degenerative changes in bilateral hips. Femoral Length: Left 60.4 cm, right 60.2 cm (measured between center of the femoral head and the intercondylar notch). Tibial Length: 51.3 cm left, 51.9 cm right (measured between the intercondylar eminence of the tibia and center of the superior contour of the talar trochlea). Full Leg Length: Left leg length 112.7 cm, right leg length 112.1 cm (measured between center of the femoral head and the center of superior condyle of the talar trochlea). XR/XR bone length study IMPRESSION: 1. Right leg length 112.1 cm. Left leg length 112. 7 cm. 2. Redemonstration of chronic distal femoral fracture with bridging new bone/callus formation. Evaluation of prosthesis and fracture fracture limited on these images.
--- NOTE | ~2023-08-06 | XR_ITS ---
EXAMINATION: XR LUMBOSACRAL SPINE CLINICAL INFORMATION: Back pain. COMPARISON: 08/06/2023 left femur 09/11/2014 pelvis. TECHNIQUE: 4 views FINDINGS: Mild levoscoliosis of the lumbar spine. Degenerative changes on limited views of the bilateral hips. Diffuse demineralization. Facet arthritis in the lower lumbar spine. Multilevel lumbar spondylosis. Grade 1 anterolisthesis of L3 on L4 with moderate loss of disc space height. Advanced degenerative changes with loss of disc space height and hypertrophic change most notable at L4-L5 and L5-S1. A 1.4 cm sclerotic focus overlies the body of the L1 vertebral body. This was not clearly demonstrated on prior studies and could be related to a bony lesion versus overlying soft tissue calcification of uncertain etiology. XR/XR lumbar spine 2-3V IMPRESSION: 1. Multilevel lumbar spondylosis most notable at L4-L5 and L5-S1. 2. A 1.4 cm sclerotic focus overlies the body of the L1 vertebral body. This was not clearly demonstrated on prior studies and could be related to a bony lesion versus overlying soft tissue calcification of uncertain etiology. CT scan or MRI could be considered for further evaluation based on the clinical setting.
== END 2023-08-06 10:34 | disposition home or self-care (01) ==
LOC: HO.HOSX 10:33
PROVIDERS: Visit Provider Physical Medicine & Rehabilitation
DX: M54.9 Dorsalgia, unspecified (principal); M79.605 Pain in left leg; M21.372 Foot drop, left foot; S72.492D Other fracture of lower end of left femur, subsequent encounter for closed fracture with routine healing; X58.XXXD Exposure to other specified factors, subsequent encounter; Z96.652 Presence of left artificial knee joint
CPT/HCPCS: 72100; 77073; 99202

== ENCOUNTER 2023-08-06 11:51 | Outpatient (AMB) | payer MEDICARE, SELFPAY ==
--- NOTE | 2023-08-06 11:54 | MHC.OFFVIS ---
Vital Signs 08/06/23 12:00 Height 6 ft 5 in Weight 270 lb BMI 32.0 Intake Visit Reasons: New Pt -Back pain/ left leg Intake Note: Danny is a 78 year old male who presents today with a cane as a new patient with complaints of lower back pain/left leg. He was referred by Jackie Pierre due to his lower back pain and possible leg length discrepancy. Patient reports after his knee replacement he noticed he cannot walk a mile without aching back pain, then he fractured his left leg and believes this is why he may be having back pain because nothing else triggers it. He says the longer he is walking the more his pain exacerbates but when he stops ambulating his pain mellows out and stops. He is concerned of leg length discrepancy. Hx of Left TKA done in [place] roughly 5-6 years. Hx of Left femur retrograde nail 02/28/23 NE. Hx of DM type 2. Allergies No Known Allergies [No Known Allergies*] Allergy (Verified 08/06/23 12:01) Medication List - Last Reconciled 08/06/23 by Roxann Calvin MD acetaminophen 650 mg (2 x 325 mg) PO Q6H PRN 30 days brimonidine 0.2% 1 drp ophthalmic (eye) BID [Hospital bed duration: 99 days] metformin 1 tab PO TID walker (Ultra-Light Rollator misc) As directed HPI Comments Details: Status post left distal femur retrograde IM nailing, which was performed on 02/28/[address] Cheng. Has back pain across the back, since left knee replacement 7 years ago. Comes with prolonged walking. Worse after recent femur fracture. Chronic numbness feet which he attributes from DM and from left knee TKA (he had numb patch below knee since). He is concern about leg length discrepancy. [facility] Medical History PONV (postoperative nausea and vomiting) HTN (hypertension) Diabetes Liver fibrosis Hepatitis C Surgical History Hx of cataract extraction History of esophagogastroduodenoscopy (EGD) H/O colonoscopy History of total left knee replacement Hx of rotator cuff surgery Social History Household Members: Spouse Housing: House Do you presently have visiting nurse or other home services: No Patient Tobacco Use Status: Never used Tobacco service: No Current occupational status: retired Review of Systems Const All systems reviewed & are unremarkable except as noted in HPI and below Physical Exam Vital Signs: BMI result Body Mass Index 32.0 Constitutional: Patient appears to be in no acute distress, well nourished and well developed. Patient was appropriately conversant and oriented. Good historian. MSK: No specific abnormalities found on inspection of the spine and all extremities. No pain with palpation over the lumbar area. SI and GT nontender. Lumbar ROM was full. Straight-leg raising test deferred but slump sit negative. FABERE test deferred. Left dorsiflexion 4/5. Rest of MMT 5/5. Neurological: Strength testing as above. Ye?s negative bilaterally. Babinski was down going bilaterally. Clonus was negative. Gait is antalgic without loss of balance. Results Reviewed Results Reviewed: Discussed patient's history with Jackie MILLER. Ordering Physician: Jackie Pierre PA-C Date of Service: 05/22/23 Procedure(s): XR femur LT 2V Accession Number(s): [id number] cc: Jackie Pierre PA-C~ EXAMINATION: XR FEMUR, LEFT CLINICAL INFORMATION: Fracture of lower end of left femur. COMPARISON: . TECHNIQUE: AP and lateral views of the left femur were obtained, 4 views total. FINDINGS: Redemonstration of intramedullary yuliana and distal femoral screws transfixing previously noted comminuted fracture of the distal femur. Fracture fragments are similar in alignment. There is increased abundant bridging callus formation. Degenerative changes in the left hip. Hardware appears intact. Knee joint effusion present. Visualized portion of the knee prosthesis appears stable. XR/XR femur LT 2V IMPRESSION: Healing comminuted fracture of the distal femur status post ORIF. I reviewed records from the following: ortho Assessment & Plan Assessment & Plan (1) Fracture of distal end of femur: Comment: Left distal femur retrograde IM nailing 02/28/2023 Dr. Marc Cheng. Code(s): S72.409A - Unspecified fracture of lower end of unspecified femur, initial encounter for closed fracture Category: Medical Qualifiers: Encounter type: initial encounter Fracture morphology: other fracture Fracture type: closed Laterality: left Qualified Code(s): S72.492A - Other fracture of lower end of left femur, initial encounter for closed fracture Plan His main concern is leg length discrepancy from recent femur fracture. He insisted that xrays be done rather than manually measuring today. I ordered bone length xray to measure for leg length discrepancy. He was satisfied. Chronic left foot drop, which could be peroneal neuropathy from left TKA or from lumbar radiculopathy. I did manage to convince him to get lumbar xrays done today. Assessment and plan discussed with patient, and patient was agreeable. All questions were answered thoroughly. Follow-up after x-ray results. Total of 45 minutes spent today including chart review, results review, history taking, physical examination, discussion of assessment and plan, and coordination of care. [ ] Roxann Calvin MD, DRIK Board Certified, [place] Board of Physical Medicine and Rehabilitation (ABPMR) Board Certified, [place] Board of Electrodiagnostic Medicine (ABEM) Orders: Orders XR bone length study Today S72.492A - Other fracture of lower end of left femur, initial encounter for closed fracture XR lumbar spine 2-3V Today M54.9 - Dorsalgia, unspecified Coding Level of Care Code New Pt Level 4 (52844) Diagnoses Other closed fracture of distal end of left femur, initial encounter S72.492A Encounter type: initial encounter Fracture morphology: other fracture Fracture type: closed Laterality: left
[2023-08-06 12:00] VITALS: BMI 32.0
== END 2023-08-06 12:26 | disposition home or self-care (01) ==
PROVIDERS: PCP Internal Medicine; Visit Provider Physical Medicine & Rehabilitation
DX: S72.492A Other fracture of lower end of left femur, initial encounter for closed fracture (principal)
CPT/HCPCS: 99203

== ENCOUNTER 2023-08-11 11:00 | Outpatient (RCR) | payer MEDICARE, SELFPAY ==
--- NOTE | 2023-04-08 08:09 | MHC.PT.EP ---
[facility] [place] Office [place] Office [place] Office [address] Dexter Lara [address] [phone] F: [phone] F: [phone] F: [phone] F: [phone] Physical Therapy Plan of Care Date of Evaluation: 04/07/23 Date of Surgery: 02/28/23 Diagnosis: FX OF LOWER END OF L FEMUR Assessment: Pt IS 77 YO M S/P IMN 02/28/[address] VELOZ S/P FALL 02/27/23. Pt HAD L TKR ABOUT 6 MONTH PRIOR TO FALL. PRESENTST TO PT WITH ANTALGIC GT, LIMITED LE ROM AND STRENGTH ON THE L. Pt WITH SIGNIFICANT SWELLING IN L LE. OTS IN TO HELP ASSESS. RECOMMEND OT FOR LYMPHEDEMA MANAGEMENT IN ADDITION TO PT TO HELP WITH STRENGTHENING, FLEXIBILITY, GT AND OVERALL FUNCTIONAL MOBILITY Frequency and Duration: The patient will be seen 2X/WK X 8 WKS Short Term Goals: 1. NORMALIZED GT WITH LRAD 2. L KNEE ROM 0-110 3. Pt ABLE TO PERF SLR ON L 3 SETS OF 10 WITHOUT QUAD LAG Certified Master Safecracker Goals: 1. I HEP WITH DC EX PLAN 2. LESS SWELLING NOTED (AND REPORTED) L LE 3. DECREASED L LE/KNEE PAIN AT LEAST 50% WITH ADLS 4. L KNEE ROM 0-120 5. L LE MMT 5/5 Treatment Plan: Modalities to reduce pain, spasms and effusion. Manual therapy to restore motion and function. Therapeutic exercise to improve strength and flexibility. Neuromuscular re-education for posture and balance. Therapeutic activities to return to functional activities of daily living. Electronically signed by: BRUCE CABALLERO PT Please sign and return to therapist. Thank you for your referral.
--- NOTE | 2023-09-14 14:56 | MHC.PT.DC ---
[facility] [place] Office [place] Office [place] Office [address] Dexter Lara [address] [phone] F: [phone] F: [phone] F: [phone] F: [phone] Physical Therapy Discharge Report Diagnosis: FX OF LOWER END OF L FEMUR Date of Surgery: 02/28/23 Date of Evaluation: 04/07/23 Date of Discharge: 09/14/23 Treatments to Date: 22 Cancellations to Date: No Shows to Date: Discharge Status: Achieved Goals Improved Function Independent with HEP Patient Elected to Stop Discharge Summary: PER ASSESSMENT BY SAMANTHA WILSON FABRIC WORKER FITTER AT Pt'S LAST APPT ON 08/11/23 ' Pt came today and wanted to leave early and feels he needs to go over important ex's he needs for home to strengthen his leg. He has family issues that are preventing him to attend PT as necessary and may return when issues have resolved. Pt has demonstrated independent HEP and has improved GT pattern and posture throughout at this time.' HAS MET MOST PT GOALS AT THIS TIME Electronically signed by: BRUCE CABALLERO PT Please sign and return to therapist. Thank you for your referral.
== END 2023-09-14 14:57 | disposition home or self-care (01) ==
LOC: HO.PT 11:00
PROVIDERS: PCP Internal Medicine; Visit Provider Physician Assistant
DX: S72.492A Other fracture of lower end of left femur, initial encounter for closed fracture (principal)
CPT/HCPCS: 97110; 97112; 97116; 97140; 97162; 97530; 97535

== ENCOUNTER 2023-08-21 11:14 | Outpatient (REF) | payer MEDICARE, SELFPAY ==
[2023-08-21 11:19] LABS: MANUAL DIFF FLAG NO
[2023-08-21 12:01] LABS: Basophils Percent Auto 0.4 % (0-2); Eosinophils Absolute Auto 0.1 X10*3/uL (0.0-0.4); Eosinophils Percent Auto 1.5 % (0-4); Hematocrit 42.6 % (42.0-52.0); Hemoglobin 13.7 g/dl (14.0-18.0); Imm Gran Abs Auto 0.03 X10*3/uL (0.00-0.03); Imm Gran Pct Auto 0.4 % (0.0-0.4); Lymphocytes Percent Auto 27.1 % (20-40); Mean Corpuscular HGB Conc 32.2 g/dl (31.0-36.0); Mean Corpuscular Hemoglobin 27.6 pg (27.0-33.0); Mean Corpuscular Volume 85.7 fL (80.0-98.0); Mean Platelet Volume 9.8 fL (9.4-12.4); Monocytes Absolute Auto 0.4 X10*3/uL (0.1-1.2); Monocytes Percent Auto 6.1 % (2-11); Neutrophils Absolute Auto 4.7 x10*3/uL (2.0-8.3); Neutrophils Percent Auto 64.5 % (45-73); Platelet Count 165 X10*3/uL (160-400); Red Blood Count 4.97 X10*6/uL (4.60-5.80); Red Cell Distribution Width 16.7 % (11.0-16.0); White Blood Count 7.2 X10*3/uL (4.8-10.8)
[2023-08-21 12:06] LABS: Appearance Urine Clear; Color Urine Yellow; Glucose Urine UA Negative (Negative); Leukocyte Esterase Urine Negative (Negative); Nitrite Urine Negative (Negative); PH 7.5 (5.0-9.0); Urine Blood Negative (Negative); Urine Ketones Negative (Negative); Urine Protein Negative (Neg-Trace)
[2023-08-21 12:11] LABS: Bacteria Urine None Seen (None Seen); Hyaline Casts Urine 0-2 /LPF (0-2); RBC Urine 0-2 /HPF (0-2); Squamous Epithelial Cell Urine 0-2 /HPF (0-2); WBC Urine 0-5 /HPF (0-5)
[2023-08-21 12:23] LABS: Alanine Aminotransferase 16 U/L (0-40); Albumin Level 4.2 g/dL (3.5-5.0); Alkaline Phosphatase 142 U/L (39-117); Anion Gap 11 (12-20); Aspartate Amino Transferase 14 U/L (5-37); Bilirubin Total 1.4 mg/dL (0.0-1.0); Blood Urea Nitrogen 11 mg/dL (9-16); Calcium 9.4 mg/dL (8.4-10.2); Carbon Dioxide 25 mmol/L (22-29); Chloride 108 mmol/L (96-108); Cholesterol 143 mg/dL (<200); Estimated Glomerular Filt Rate > 60; Glucose Fasting 164 mg/dL (60-99); HDL Cholesterol 54 mg/dL (>40); Iron 74 mcg/dL (45-160); LDL Cholesterol Calculated 77 mg/dL (<100); Percent Iron Saturation 31 % (15-50); Potassium 4.2 mmol/L (3.3-5.1); Sodium 140 mmol/L (135-145); Total Iron Binding Capacity 239 mcg/dL (228-428); Total Protein 7.1 g/dL (6.5-8.0); Triglycerides 61 mg/dL (<150); Unsaturated Iron Binding 165 ug/dL
[2023-08-21 12:35] LABS: Estimated Average Glucose 146 mg/dL; Hemoglobin A1c % 6.7 % (<6.0)
[2023-08-21 12:40] LABS: PSA,Total (Free>4and<10) 0.34 ng/mL (0.00-4.00)
[2023-08-21 12:56] LABS: Creatinine Urine 121.39 mg/dL; Microalbum/Creatinine Ratio Ur 6.5 ug/mg cr (<30)
== END 2023-08-21 11:15 | disposition home or self-care (01) ==
LOC: HO.LNP 11:14
PROVIDERS: Visit Provider Internal Medicine
DX: Z00.00 Encounter for general adult medical examination without abnormal findings (principal); I10 Essential (primary) hypertension; E11.9 Type 2 diabetes mellitus without complications; D50.9 Iron deficiency anemia, unspecified; Z12.5 Encounter for screening for malignant neoplasm of prostate
CPT/HCPCS: 80053; 80061; 81001; 82043; 82570; 83036; 83540; 84153; 85025

== ENCOUNTER 2023-09-10 10:36 | Outpatient (AMB) | payer MEDICARE, SELFPAY ==
[2023-09-10 10:47] VITALS: BMI 32.0
--- NOTE | 2023-09-10 10:47 | MHC.OFFVIS ---
Vital Signs 09/10/23 10:47 Height 6 ft 5 in Weight 270 lb BMI 32.0 Intake Visit Reasons: O/V Back pain/ left leg Intake Note: Danny is a 78 year old male who presents today with complaints of left leg pain. He was recently seen with Dr. Torres who discussed that his primary concerns were of a leg length discrepancy. Hx of Left TKA done in [place] roughly 5-6 years. Hx of Left femur retrograde nail 02/28/23 NE. 1. Right leg length 112.1 cm. Left leg length 112. 7 cm. 2. Redemonstration of chronic distal femoral fracture with bridging new bone/callus formation. Evaluation of prosthesis and fracture fracture limited on these images. Allergies No Known Allergies [No Known Allergies*] Allergy (Verified 08/06/23 12:01) HPI HPI O/V Back pain/ left leg: Details: Danny is a 78 year old male who presents today with complaints of left leg pain. He was recently seen with Dr. Torres who discussed that his primary concerns were of a leg length discrepancy. Hx of Left TKA done in [place] roughly 5-6 years. Hx of Left femur retrograde nail 02/28/23 NE. He is doing well but still ahving some back pain. [facility] Medical History PONV (postoperative nausea and vomiting) HTN (hypertension) Diabetes Liver fibrosis Hepatitis C Surgical History Hx of cataract extraction History of esophagogastroduodenoscopy (EGD) H/O colonoscopy History of total left knee replacement Hx of rotator cuff surgery Social History Household Members: Spouse Housing: House Do you presently have visiting nurse or other home services: No Patient Tobacco Use Status: Never used Tobacco service: No Current occupational status: retired Physical Exam Vital Signs: BMI result Body Mass Index 32.0 Extrem Other: near ful ROM left knee. Mild gait antalgia no ttp distal left femur Results Reviewed Results Reviewed: I personally reviewed relevant radiographs. 1. Right leg length 112.1 cm. Left leg length 112. 7 cm. 2. Redemonstration of chronic distal femoral fracture with bridging new bone/callus formation. Evaluation of prosthesis and fracture fracture limited on these images. Assessment & Plan Assessment & Plan (1) Fracture of distal end of femur: Comment: Left distal femur retrograde IM nailing 02/28/2023 Dr. Marc Cheng. Code(s): S72.409A - Unspecified fracture of lower end of unspecified femur, initial encounter for closed fracture Category: Medical Qualifiers: Encounter type: initial encounter Fracture morphology: other fracture Fracture type: closed Laterality: left Qualified Code(s): S72.492A - Other fracture of lower end of left femur, initial encounter for closed fracture Plan: Continueing to impove. No LLD. F/u prn Coding Level of Care Code Est Pt Level 3 (94376) Diagnoses Other closed fracture of distal end of left femur, initial encounter S72.492A Encounter type: initial encounter Fracture morphology: other fracture Fracture type: closed Laterality: left
== END 2023-09-10 11:15 | disposition home or self-care (01) ==
PROVIDERS: PCP Internal Medicine; Visit Provider Orthopaedic Surgery
DX: S72.492A Other fracture of lower end of left femur, initial encounter for closed fracture (principal)
CPT/HCPCS: 99212

== ENCOUNTER → 2023-09-10 10:36 | Outpatient (BNVA) | payer MEDICARE, SELFPAY | PROVIDERS: PCP Internal Medicine; Visit Provider Orthopaedic Surgery | DX: S72.492A Other fracture of lower end of left femur, initial encounter for closed fracture (principal) | CPT/HCPCS: 99212 ==

== ENCOUNTER 2023-10-28 08:21 | Outpatient (AMB) | payer MEDICARE, SELFPAY ==
[2023-10-28 08:33] VITALS: BP 166/68; PULSE 82; BMI 33.8
--- NOTE | 2023-10-28 08:33 | A.OFFVIS_ITS ---
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 He does not have any known cardiac issues including coronary disease or myocardial infarction or cardiomyopathy or any other cardiac concerns. The last few months, he has had some chest pain episodes. These apparently happen when he was doing some work in the yard. Seems exertional and relieved with rest. Blood pressure seems to be running high but he is not on any medications. On metformin for diabetes. [facility] Medical History (Updated 10/28/23 @ 09:47 by Felix Fay MD) PONV (postoperative nausea and vomiting) HTN (hypertension) Diabetes Liver fibrosis Hepatitis C Surgical History Hx of cataract extraction History of esophagogastroduodenoscopy (EGD) H/O colonoscopy History of total left knee replacement Hx of rotator cuff surgery Family History (Updated 10/28/23 @ 08:37 by Bonnie Baeza CMA) Father Heart problem Social History (Updated 10/28/23 @ 08:38 by Bonnie Baeza CMA) Household Members: Spouse Housing: House Do you presently have visiting nurse or other home services: No Alcohol intake: current Comment: social Patient Tobacco Use Status: Never used Tobacco service: No Current occupational status: retired Review of Systems Const Denies chills, Denies daytime sleepiness, Denies fatigue, Denies fever(s), Denies poor appetite, Denies snoring, Denies stops breathing during sleep, Denies weakness, Denies weight gain and Denies weight loss Eyes Denies loss of vision ENT Denies dizziness and Denies hearing loss Card Denies chest pain, Denies irregular heart rhythm, Denies claudication, Denies leg edema, Denies lightheadedness, Denies palpitations, Denies dyspnea on exertion and Denies orthopnea Resp Denies cough, Denies excessive phlegm production, Denies dyspnea on exertion, Denies snoring and Denies wheezing GI Denies abdominal pain, Denies hematochezia, Denies change in bowel habits, Denies nausea and Denies vomiting Denies dysuria and Denies urinary frequency Musc Denies arthralgias, Denies muscle weakness, Denies numbness and Denies other Skin/Breast Denies nail changes and Denies rash Neuro Denies Abnormal speech present, Denies dizziness, Denies loss of vision, Denies memory loss, Denies numbness and Denies weakness Psych Denies depression and Denies memory loss Endo Denies fatigue and Denies palpitations Jeanmarie/Lymph Denies easy bruising Aller/Immun Denies wheezing Physical Exam Vital Signs: Last Vital Signs Pulse 82 10/28/23 08:33 BP 166/68 H 10/28/23 08:33 BMI result Body Mass Index 33.8 Const General: comfortable and no acute distress Orientation/consciousness: patient oriented x3 HEENT Other: Unremarkable Head: Yes normal to inspection Neck Neck: Yes normal visual inspection Chest Chest palpation & inspection: normal inspection of the chest Resp Auscultation: clear to auscultation bilaterally Cardio Palpation: normal PMI Heart sounds: S1 normal heart sound present, S2 normal heart sound present, no gallops, no murmurs and no rubs GI Palpation (GI): Soft to palpation Back/Spine/Pelvis Other: unremarkable Skin General skin exam: no rashes or lesions noted Neuro General: patient oriented x3 Speech: No Abnormal speech present Extrem General: Yes normal to inspection Psych Mental Status: mental status grossly normal Office Procedures EKG Details: EKG with underlying sinus rhythm at 78/Min; can not exclude old inferior infarct; left ventricular hypertrophy; [place]. [id number], Complete Assessment & Plan Assessment & Plan (1) Precordial chest pain: Code(s): R07.2 - Precordial pain Category: Medical (2) HTN (hypertension): Code(s): I10 - Essential (primary) hypertension Category: Medical Plan Exertional sounding chest pain and needs evaluation for obstructive coronary disease. We will arrange an echocardiogram and exercise stress perfusion study as soon as possible. In the interim, advised to avoid any form of strenuous physical activity. Can try sublingual nitroglycerin for chest pain. If it does not get relieved, needs to call emergency help. Discussed. With regard to blood pressure, recheck myself and it is still high. Start amlodipine. Follow-up after the above. Then we can plan on further workup and treatment. Orders: Orders CA echo transthoracic complete Today R07.2 - Precordial pain CA stress test Today R07.2 - Precordial pain NM cardiolite stress test Today R07.2 - Precordial pain Medications: New amlodipine 5 mg PO DAILY 90 tabs 3RF 90 days nitroglycerin do not exceed 3 doses per episode 0.4 mg sublingual Q5M PRN 30 tabs 5RF chest pain R07.2 - Precordial pain Coding Level of Care Code New Pt Level 4 (92226) Diagnoses Precordial chest pain R07.2 HTN (hypertension) I10 CPT Codes EKG - CPT: 57789-[id number], Complete ([id number])
== END 2023-10-28 09:00 | disposition home or self-care (01) ==
PROVIDERS: PCP Internal Medicine; Visit Provider Internal Medicine
DX: R07.2 Precordial pain (principal); I10 Essential (primary) hypertension; R94.31 Abnormal electrocardiogram [ECG] [EKG]
CPT/HCPCS: 93010; 99214

== ENCOUNTER → 2023-10-28 08:21 | Outpatient (BNVA) | payer MEDICARE, SELFPAY | PROVIDERS: PCP Internal Medicine; Visit Provider Internal Medicine | DX: R07.2 Precordial pain (principal); I10 Essential (primary) hypertension | CPT/HCPCS: 93005; 99212 ==

== ENCOUNTER → 2023-10-29 09:48 | Outpatient (REF) | payer MEDICARE, SELFPAY ==
--- NOTE | 2023-10-29 09:58 | CA_ITS ---
Transthoracic Echocardiogram Patient (Last, First, Middle): Danny Peraza F Gender: Male Date of : 1945 Age: 78 Procedure Date: 10/29/2023 Procedure Type: Transthoracic Echocardiogram Location: OP Height: 195.58 cm Weight: 127.01 kg BSA: 2.58 m2 Heart Rate: 74 bpm BP: 145 / 75 mmHg Decision Unit Rn: [email or web address] Referring MD: Felix Fay MD Certified Shorthand Reporter: Joseph Ng MD Symptoms: R07.2 - Precordial pain Study Quality: Fair ECG Rhythm: Sinus Conclusions: - 1. Low normal LV ejection fraction 50-55% with mild LVH with impaired relaxation filling pattern with underlying regional wall motion abnormality 2. Calcific aortic and mitral valve changes noted with normal cardiac valvular Dopplers 3. No gross pericardial effusion Findings Left Ventricle Normal left ventricular cavity size. There is mildly increased left ventricular wall thickness. The left ventricular systolic function is low normal. The visually estimated ejection fraction is between 50-55%. There is no dynamic left ventricular outflow tract obstruction. Spectral Doppler is indicative of an impaired relaxation filling pattern. E/E prime ratio is between 8 and 15 consistent with indeterminate filling pressures. There is moderate septal asymmetric hypertrophy. Peak GLS is -15.6%, mildly reduced. Wall Motion Rest Echo Findings The basal inferior, mid inferior, and basal inferoseptal segments are hypokinetic. All other scored wall segments showed normal motion. Right Ventricle Normal right ventricular cavity size and systolic function. Atria The left atrium is likely dilated. There is lipomatous hypertrophy of the interatrial septum. There is no evidence of interatrial shunt. The right atrium is normal in size. Aortic Valve There is mild calcification of the aortic valve. There is mild thickening of the aortic valve. There is no aortic valve stenosis. There is no aortic valve regurgitation. Mitral Valve There is mild anterior and posterior mitral leaflet thickening. There is mild anterior and mild posterior mitral annular calcification. There is mild mitral annular calcification. There is trace mitral valve regurgitation. There is no mitral valve stenosis. Pulmonic Valve The pulmonic valve was not well visualized. Tricuspid Valve Likely normal tricuspid valve structure and function. Tricuspid regurgitation envelope is inadequate for calculation of right ventricular systolic pressure. Normal right atrial pressure. Great Vessels All visible segments of the aorta are normal in size. The pulmonary artery was not well visualized. There is no dilatation of the ascending aorta measuring 3.40 cm. Small plaque is seen in the sino tubular ridge. Venous The inferior vena cava is normal in size and collapses greater than 50% with inspiration. Pericardium/Pleural There is no evidence of pericardial effusion. Prior Study Comparison no previous study in the last 5 years for comparison Measurements 2D Linear Measurements IVSd: 1.84 0.6-0.9/0.6-1.0 cm LVIDd: 4.71 3.9-5.3/4.2-5.9 cm LVIDd Index: 1.83 2.4-3.2/2.2-3.1 cm/m2 LVIDs: 3.24 2.0-3.6 cm LVPWd: 1.21 0.7-1.1 cm LA Diam: 3.90 2.7-3.8/3.0-4.0 cm LAIDs Index: 1.51 1.5-2.3 cm/m2 LV Mass: 377.31 67-162/88-224 g LV Mass Index: 146.25 43-95/49-115 g/m2 LVOT Diam: 2.20 3.0+(-)1.3 cm 2D Systolic Function EF 4C: 52.40 >55% EF 2C: 56.60 >55% EF BiP: 54.90 >55% Mitral Valve MV Pk E: 0.73 MV PK A: 0.78 MV Decel Time: 248.00 E/A: 0.90 E'Lateral: 6.64 E'Medial: 6.20 E/E' Med: 11.70 E/E' Lat: 11.00 PHT: 73.00 MVA PHT: 3.01 Decel Dooly: 2.93 Aortic Valve AoV Pk Real: 1.41 AoV Mn Real: 1.09 AoV VTI: 0.31 AoV Pk Grad: 8.00 Aov Mn Grad: 5.00 JULIOCESAR Cont.VTI: 3.24 LVOT LVOT Pk Real: 1.29 LVOT Mn Real: 0.92 LVOT VTI: 0.27 LVOT Pk Grad: 7.00 LVOT Mn Grad: 4.00 LVOT Diam: 2.20 LVOT Area: 3.80 Diastolic Function MV Pk E: 0.73 MV Pk A: 0.78 E/A: 0.90 E'Medial: 6.20 E/E' Med: 11.70 E' Laterial: 6.64 E/E' Lat: 11.00 Right Ventricle TAPSE (mm): 25.30 TVS' Real: 14.00 Tricuspid Valve RA Press: 3.00 Great Vessels Aorta Sinus of Valsalva: 3.90 2.0-3.5 cm Ao Asc: 3.40 2.1-3.4 cm Pulmonary Valve PV Pk Real: 0.98 Peak PV Grad: 4.00 Updated in Other Vendor System with Status of Final Joseph Ng MD electronically signed on 10/30/2023 10:16:48 AM with status of Final
== END ==
LOC: HO.CARD 09:48
PROVIDERS: PCP Internal Medicine; Visit Provider Internal Medicine
DX: R07.2 Precordial pain (principal)
CPT/HCPCS: 93306; 93356

== ENCOUNTER → 2023-10-29 09:58 | Outpatient (BNV) | payer MEDICARE, SELFPAY | PROVIDERS: PCP Internal Medicine; Visit Provider Internal Medicine Cardiovascular Disease | DX: I42.2 Other hypertrophic cardiomyopathy (principal); R93.1 Abnormal findings on diagnostic imaging of heart and coronary circulation; I35.8 Other nonrheumatic aortic valve disorders; I34.81 Nonrheumatic mitral (valve) annulus calcification | CPT/HCPCS: 93306; 93356 ==

== ENCOUNTER → 2023-11-05 07:50 | Outpatient (REF) | payer MEDICARE, SELFPAY ==
--- NOTE | ~2023-11-05 | NM_ITS ---
EXERCISE MYOCARDIAL PERFUSION STUDY INDICATION: Chest pain TECHNIQUE: The patient was brought in for an exercise perfusion study on 11/05/2023. Patient performed exercise as per Hero protocol and was injected 40 mCi of sestamibi once target heart rate was achieved. Images were obtained using the SPECT gamma camera interlaced with the gating device. Images were obtained in supine position. Resting perfusion study was performed on 11/06/2023. Patient was administered 40 mCi of sestamibi intravenously at rest. Images were then obtained in supine position. Total DLP 102 mGy-cm. Images were processed with the software and compared side to side in short axis, horizontal long axis and vertical long axis views. FINDINGS: Raw aquisition reviewed. The stress perfusion study showed diminished tracer uptake in the mid to distal part of anterior wall. There is also reduced uptake in the basal part of inferior wall. The gated study shows diminished LV systolic function with calculated LVEF of 34%. LV cavity is dilated in size. The gated study shows reduced thickening and contractility in the mid to distal part of anterior wall as was basal inferior wall Resting study shows improved uptake in the anterior wall compared to stress acquisition. There is still diminished uptake in the basal part of inferior wall. Gating at rest reveals diminished contractile in the mid to distal anterior wall and basal inferior wall. The findings are consistent with most reversible perfusion defect in the mid to distal part of anterior wall. Fixed perfusion defect in the basal part of inferior wall. NM/NM cardiolite stress test IMPRESSION: 1. Myocardial perfusion imaging study shows ischemia in the mid to distal anterior wall. Infarct versus severe ischemia in the basal part of inferior wall. 2. Gated LVEF is 39% during stress and 34% during rest. 3. Transient ischemic dilatation not present. EKG component of the test reported separately. Electronically signed by: Felix Fay MD 11/08/2023 11:53 AM EDT
--- NOTE | 2023-11-05 07:52 | CA_ITS ---
Acquisition Time: 2023-11-05 07:50:46 Total Exercise Time: 00:04:45 Test Indications: CP Medications: SEE H Protocol: MITUL Max HR: 160 BPM 111% of Pred: 143 BPM Max BP: 200/100 mmHG Max Work Load: 5.3 METS Exercise stress test exercise 4 min 45 sec of Mitul protocol stage 2 manually adjusted per heart rate acheving 104% MPHR, with moderate SOB, 2/10 chest pressure, with isolated PACs and PVCs, with brisk HR and hypertensive response to exercie, with downsloping in leads 2, 3, aVF, V5-V6. Chest pressure and shortness of breath resolved with rest. Test reviewed with Dr. Fay. Referred By: Felix Fay Overread By: Sarah Bailey
== END ==
LOC: HO.CARD 07:50
PROVIDERS: PCP Internal Medicine; Visit Provider Internal Medicine
DX: R07.2 Precordial pain (principal)
CPT/HCPCS: 78452; 93017; A9500

== ENCOUNTER → 2023-11-05 07:52 | Outpatient (BNV) | payer MEDICARE, SELFPAY | PROVIDERS: PCP Internal Medicine; Visit Provider Nurse Practitioner | DX: I25.5 Ischemic cardiomyopathy (principal) | CPT/HCPCS: 78452; 93016; 93018 ==

== ENCOUNTER 2023-11-10 13:17 | Outpatient (REF) | payer MEDICARE, SELFPAY ==
[2023-11-10 14:01] LABS: Hematocrit 42.8 % (42.0-52.0); Hemoglobin 13.9 g/dl (14.0-18.0); Mean Corpuscular HGB Conc 32.5 g/dl (31.0-36.0); Mean Corpuscular Hemoglobin 28.3 pg (27.0-33.0); Mean Platelet Volume 9.9 fL (9.4-12.4); Platelet Count 176 X10*3/uL (160-400); Red Blood Count 4.92 X10*6/uL (4.60-5.80); Red Cell Distribution Width 14.5 % (11.0-16.0); White Blood Count 6.6 X10*3/uL (4.8-10.8)
[2023-11-10 14:07] LABS: INTERNATIONAL NORM RATIO 0.9 (0.9-1.1)
[2023-11-10 14:20] LABS: Anion Gap 10 (12-20); Blood Urea Nitrogen 12 mg/dL (9-16); Calcium 9.6 mg/dL (8.4-10.2); Carbon Dioxide 29 mmol/L (22-29); Chloride 107 mmol/L (96-108); Estimated Glomerular Filt Rate > 60; Glucose Random 135 mg/dL (60-115); Potassium 4.3 mmol/L (3.3-5.1); Sodium 142 mmol/L (135-145)
== END 2023-11-10 13:18 | disposition home or self-care (01) ==
LOC: HO.LAB 13:17
PROVIDERS: PCP Internal Medicine; Visit Provider Internal Medicine
DX: I25.10 Atherosclerotic heart disease of native coronary artery without angina pectoris (principal); R07.2 Precordial pain
CPT/HCPCS: 36415; 80048; 85027; 85610

== ENCOUNTER → 2023-11-12 23:59 | Outpatient (BNV) | payer MEDICARE, SELFPAY | PROVIDERS: PCP Internal Medicine; Visit Provider Internal Medicine Cardiovascular Disease | DX: I20.89 Other forms of angina pectoris (principal); I25.118 Atherosclerotic heart disease of native coronary artery with other forms of angina pectoris; R93.1 Abnormal findings on diagnostic imaging of heart and coronary circulation | CPT/HCPCS: 92928; 92978; 93458; 99152 ==

== ENCOUNTER 2023-11-18 12:50 | Outpatient (AMB) | payer MEDICARE, SELFPAY ==
--- NOTE | 2023-11-18 12:55 | A.OFFVIS_ITS ---
Vital Signs 11/18/23 12:56 Height 6 ft 5 in Weight 288 lb 12.889 oz BMI 34.2 BP 150/78 H Blood Pressure Location Lt brachial Position Sitting Pulse 88 Pulse Source Pulse Oximeter Intake Visit Reasons: 1 mth f/up echo/ mibi Allergies No Known Allergies [No Known Allergies*] Allergy (Verified 08/06/23 12:01) Medication List - Last Reconciled 11/18/23 by Felix Fay MD amlodipine 5 mg PO DAILY 90 days aspirin (Adult Low Dose Aspirin) 81 mg PO DAILY atorvastatin (Lipitor) 40 mg PO QPM brimonidine 0.2% 1 drp ophthalmic (eye) BID clopidogrel (Plavix) 75 mg PO DAILY [Hospital bed duration: 99 days] metformin 500 mg PO TID metoprolol succinate ER (Toprol XL) 25 mg PO DAILY nitroglycerin 0.4 mg sublingual Q5M PRN walker (Ultra-Light Rollator misc) As directed HPI Comments Details: Danny returns for follow-up. Recently seen in consultation regarding chest pains. Was suggestive of angina and he underwent further workup with echocardiogram and stress test followed by cardiac catheterization. He underwent LAD stenting. Overall, he states he feels okay. Has not had any further chest pains. His blood pressure was quite high and we started him on amlodipine but he states he has not been taking it. Otherwise, feels okay. [facility] Medical History (Updated 11/18/23 @ 13:01 by Felix Fay MD) Atherosclerotic cardiovascular disease PONV (postoperative nausea and vomiting) HTN (hypertension) Diabetes Liver fibrosis Hepatitis C Surgical History Hx of cataract extraction History of esophagogastroduodenoscopy (EGD) H/O colonoscopy History of total left knee replacement Hx of rotator cuff surgery Family History (Updated 10/28/23 @ 08:37 by Bonnie Baeza CMA) Father Heart problem Social History (Updated 10/28/23 @ 08:38 by Bonnie Baeza CMA) Household Members: Spouse Housing: House Do you presently have visiting nurse or other home services: No Alcohol intake: current Comment: social Patient Tobacco Use Status: Never used Tobacco service: No Current occupational status: retired Review of Systems Const Denies weakness ENT Denies dizziness Card Denies chest pain, Denies chest pain with activity, Denies syncope, Denies rapid heart rate, Denies pedal edema, Denies edema, Denies leg edema, Denies lightheadedness, Denies palpitations, Denies dyspnea, Denies dyspnea on exertion and Denies orthopnea Resp Denies cough, Denies dyspnea and Denies dyspnea on exertion GI Denies hematochezia and Denies change in stool character Musc Denies abnormal gait, Denies muscle cramps, Denies muscle weakness, Denies numbness, Denies radiating pain into limb and Denies tingling Neuro Denies abnormal gait, Denies dizziness, Denies syncope, Denies numbness, Denies tingling and Denies weakness Endo Denies palpitations Physical Exam Vital Signs: Last Vital Signs Pulse 88 11/18/23 12:56 BP 150/78 H 11/18/23 12:56 BMI result Body Mass Index 34.2 Const General: comfortable and no acute distress Orientation/consciousness: patient oriented x3 HEENT Other: Unremarkable Head: Yes normal to inspection Neck Neck: Yes normal visual inspection Chest Chest palpation & inspection: normal inspection of the chest Resp Auscultation: clear to auscultation bilaterally Cardio Palpation: normal PMI Heart sounds: S1 normal heart sound present, S2 normal heart sound present, no gallops, no murmurs and no rubs GI Palpation (GI): Soft to palpation Back/Spine/Pelvis Other: unremarkable Skin General skin exam: no rashes or lesions noted Neuro General: patient oriented x3 Extrem General: Yes normal to inspection Psych Mental Status: mental status grossly normal Assessment & Plan Assessment & Plan (1) Atherosclerotic cardiovascular disease: Code(s): I25.10 - Atherosclerotic heart disease of [place] coronary artery without angina pectoris Category: Medical Plan: Cardiac studies reviewed. Echocardiogram with LVEF of 50-55%; inferior/inferoseptal hypokinesis. Myocardial perfusion imaging study showed ischemia in the mid to distal anterior wall and infarct versus severe ischemia in the basal part of inferior wall. Cardiac catheterization with 90% mid LAD stenosis; minimal to mild disease elsewhere. Continue long-term aspirin. He states he has 1 month of Brilinta and after that can switch to Plavix with a load. We discussed about that today. Continue beta-blockers and statins. We will follow-up lipids in due course. LDL cholesterol in the 70s. (2) HTN (hypertension): Code(s): I10 - Essential (primary) hypertension Category: Medical Plan: Recently started amlodipine but he is not taking it. Advised him to try. If not able tolerate, may try a different agent like BRYCE inhibitors or ARB. Coding Level of Care Code Est Pt Level 4 (32861) Diagnoses Atherosclerotic cardiovascular disease I25.10 HTN (hypertension) I10
[2023-11-18 12:56] VITALS: BP 150/78; PULSE 88; BMI 34.2
== END 2023-11-18 13:12 | disposition home or self-care (01) ==
PROVIDERS: PCP Internal Medicine; Visit Provider Internal Medicine
DX: I25.10 Atherosclerotic heart disease of native coronary artery without angina pectoris (principal); I10 Essential (primary) hypertension
CPT/HCPCS: 99214

== ENCOUNTER → 2023-11-18 12:50 | Outpatient (BNVA) | payer MEDICARE, SELFPAY | PROVIDERS: PCP Internal Medicine; Visit Provider Internal Medicine | DX: I25.10 Atherosclerotic heart disease of native coronary artery without angina pectoris (principal); I10 Essential (primary) hypertension | CPT/HCPCS: 99212 ==

== ENCOUNTER 2023-12-11 07:58 | Outpatient (REF) | payer MEDICARE, SELFPAY ==
[2023-12-11 09:22] LABS: Anion Gap 12 (12-20); Blood Urea Nitrogen 10 mg/dL (9-16); Calcium 9.8 mg/dL (8.4-10.2); Carbon Dioxide 25 mmol/L (22-29); Chloride 110 mmol/L (96-108); Estimated Glomerular Filt Rate > 60; Glucose Random 207 mg/dL (60-115); Sodium 143 mmol/L (135-145)
== END 2023-12-11 07:59 | disposition home or self-care (01) ==
LOC: HO.LAB 07:58
PROVIDERS: PCP Internal Medicine; Visit Provider Internal Medicine
DX: I25.10 Atherosclerotic heart disease of native coronary artery without angina pectoris (principal); I10 Essential (primary) hypertension
CPT/HCPCS: 36415; 80048

== ENCOUNTER 2024-02-08 11:23 | Outpatient (REF) | payer MEDICARE, SELFPAY ==
[2024-02-08 11:37] LABS: MANUAL DIFF FLAG NO
[2024-02-08 12:06] LABS: Basophils Percent Auto 0.3 % (0-2); Eosinophils Absolute Auto 0.1 X10*3/uL (0.0-0.4); Eosinophils Percent Auto 1.4 % (0-4); Hematocrit 40.6 % (42.0-52.0); Hemoglobin 13.3 g/dl (14.0-18.0); Imm Gran Abs Auto 0.02 X10*3/uL (0.00-0.03); Imm Gran Pct Auto 0.3 % (0.0-0.4); Lymphocytes Absolute Auto 2.1 X10*3/uL (1.2-4.9); Lymphocytes Percent Auto 29.5 % (20-40); Mean Corpuscular HGB Conc 32.8 g/dl (31.0-36.0); Mean Corpuscular Hemoglobin 28.1 pg (27.0-33.0); Mean Corpuscular Volume 85.8 fL (80.0-98.0); Monocytes Absolute Auto 0.5 X10*3/uL (0.1-1.2); Monocytes Percent Auto 7.2 % (2-11); Neutrophils Absolute Auto 4.4 x10*3/uL (2.0-8.3); Neutrophils Percent Auto 61.3 % (45-73); Platelet Count 184 X10*3/uL (160-400); Red Blood Count 4.73 X10*6/uL (4.60-5.80); Red Cell Distribution Width 15.5 % (11.0-16.0); White Blood Count 7.1 X10*3/uL (4.8-10.8)
[2024-02-08 12:30] LABS: Alanine Aminotransferase 11 U/L (0-40); Albumin Level 4.3 g/dL (3.5-5.0); Alkaline Phosphatase 73 U/L (39-117); Anion Gap 14 (12-20); Aspartate Amino Transferase 14 U/L (5-37); Bilirubin Total 1.3 mg/dL (0.0-1.0); Blood Urea Nitrogen 11 mg/dL (9-16); Calcium 9.2 mg/dL (8.4-10.2); Carbon Dioxide 23 mmol/L (22-29); Chloride 111 mmol/L (96-108); Estimated Glomerular Filt Rate > 60; Glucose Random 83 mg/dL (60-115); Magnesium 1.7 mg/dL (1.6-2.6); Potassium 4.1 mmol/L (3.3-5.1); Sodium 144 mmol/L (135-145); Total Protein 7.4 g/dL (6.5-8.0)
== END 2024-02-08 11:24 | disposition home or self-care (01) ==
LOC: HO.LAB 11:23
PROVIDERS: PCP Internal Medicine; Visit Provider Nurse Practitioner Family
DX: I25.10 Atherosclerotic heart disease of native coronary artery without angina pectoris (principal)
CPT/HCPCS: 36415; 80053; 83735; 85025

== ENCOUNTER 2024-03-02 13:01 | Outpatient (AMB) | payer MEDICARE, SELFPAY ==
[2024-03-02 13:11] VITALS: BP 148/70; PULSE 88; BMI 34.5
--- NOTE | 2024-03-02 13:11 | A.OFFVIS_ITS ---
Vital Signs 03/02/24 13:11 Height 6 ft 5 in Weight 291 lb 0.163 oz BMI 34.5 BP 148/70 H Blood Pressure Location Lt brachial Position Sitting Pulse 88 Pulse Source Pulse Oximeter Intake Visit Reasons: 3+ mth f/up Allergies No Known Allergies [No Known Allergies*] Allergy (Verified 08/06/23 12:01) Medication List - Last Reconciled 03/02/24 by Felix Fay MD amlodipine 5 mg PO DAILY 90 days aspirin (Adult Low Dose Aspirin) 81 mg PO DAILY atorvastatin (Lipitor) 40 mg PO QPM brimonidine 0.2% 1 drp ophthalmic (eye) BID clopidogrel (Plavix) 75 mg PO DAILY [Hospital bed duration: 99 days] losartan 50 mg PO DAILY metformin 500 mg PO TID metoprolol succinate ER 50 mg PO DAILY 90 days nitroglycerin 0.4 mg sublingual Q5M PRN walker (Ultra-Light Rollator misc) As directed HPI Comments Details: Danny returns for follow-up. Recently seen in consultation regarding chest pains. Was suggestive of angina and he underwent further workup with echocardiogram and stress test followed by cardiac catheterization. He underwent LAD stenting. Overall, he states he feels good. No cardiac symptoms whatsoever. Blood pressure still on the higher side. [facility] Medical History (Updated 11/18/23 @ 13:01 by Felix Fay MD) Atherosclerotic cardiovascular disease PONV (postoperative nausea and vomiting) HTN (hypertension) Diabetes Liver fibrosis Hepatitis C Surgical History Hx of cataract extraction History of esophagogastroduodenoscopy (EGD) H/O colonoscopy History of total left knee replacement Hx of rotator cuff surgery Family History (Updated 10/28/23 @ 08:37 by Bonnie Baeza CMA) Father Heart problem Social History (Updated 10/28/23 @ 08:38 by Bonnie Baeza CMA) Household Members: Spouse Housing: House Do you presently have visiting nurse or other home services: No Alcohol intake: current Comment: social Patient Tobacco Use Status: Never used Tobacco service: No Current occupational status: retired Review of Systems Const Denies weakness ENT Denies dizziness Card Denies chest pain, Denies chest pain with activity, Denies syncope, Denies rapid heart rate, Denies pedal edema, Denies edema, Denies leg edema, Denies lightheadedness, Denies palpitations, Denies dyspnea, Denies dyspnea on exertion and Denies orthopnea Resp Denies cough, Denies dyspnea and Denies dyspnea on exertion GI Denies hematochezia and Denies change in stool character Musc Denies abnormal gait, Denies muscle cramps, Denies muscle weakness, Denies numbness, Denies radiating pain into limb and Denies tingling Neuro Denies abnormal gait, Denies dizziness, Denies syncope, Denies numbness, Denies tingling and Denies weakness Endo Denies palpitations Physical Exam Vital Signs: Last Vital Signs Pulse 88 03/02/24 13:11 BP 148/70 H 03/02/24 13:11 BMI result Body Mass Index 34.5 Const General: comfortable and no acute distress Orientation/consciousness: patient oriented x3 HEENT Other: Unremarkable Head: Yes normal to inspection Neck Neck: Yes normal visual inspection Chest Chest palpation & inspection: normal inspection of the chest Resp Auscultation: clear to auscultation bilaterally Cardio Palpation: normal PMI Heart sounds: S1 normal heart sound present, S2 normal heart sound present, no gallops, no murmurs and no rubs GI Palpation (GI): Soft to palpation Back/Spine/Pelvis Other: unremarkable Skin General skin exam: no rashes or lesions noted Neuro General: patient oriented x3 Extrem General: Yes normal to inspection Psych Mental Status: mental status grossly normal Assessment & Plan Assessment & Plan (1) Atherosclerotic cardiovascular disease: Code(s): I25.10 - Atherosclerotic heart disease of [place] coronary artery without angina pectoris Category: Medical Plan: Cardiac studies reviewed. Echocardiogram with LVEF of 50-55%; inferior/inferoseptal hypokinesis. Myocardial perfusion imaging study showed ischemia in the mid to distal anterior wall and infarct versus severe ischemia in the basal part of inferior wall. Cardiac catheterization with 90% mid LAD stenosis; minimal to mild disease elsew here. Continue long-term aspirin. Plavix for 1 year. Continue beta-blockers and statins. Check lipids. (2) HTN (hypertension): Code(s): I10 - Essential (primary) hypertension Category: Medical Plan: Currently on amlodipine/losartan. Blood pressure still on the higher side. To do home blood pressure checks. May need dose adjustments. Orders: Orders Lipid Panel Today E78.5 - Hyperlipidemia, unspecified, I25.10 - Atherosclerotic heart disease of [place] coronary artery without angina pectoris Liver Panel Today I25.10 - Atherosclerotic heart disease of [place] coronary artery without angina pectoris Coding Level of Care Code Est Pt Level 4 (25640) Diagnoses Atherosclerotic cardiovascular disease I25.10 HTN (hypertension) I10
== END 2024-03-02 13:33 | disposition home or self-care (01) ==
PROVIDERS: PCP Internal Medicine; Visit Provider Internal Medicine
DX: I25.10 Atherosclerotic heart disease of native coronary artery without angina pectoris (principal); I10 Essential (primary) hypertension
CPT/HCPCS: 99214

== ENCOUNTER → 2024-03-02 13:01 | Outpatient (BNVA) | payer MEDICARE, SELFPAY | PROVIDERS: PCP Internal Medicine; Visit Provider Internal Medicine | DX: I25.10 Atherosclerotic heart disease of native coronary artery without angina pectoris (principal); I10 Essential (primary) hypertension; E78.5 Hyperlipidemia, unspecified | CPT/HCPCS: 99212 ==

== ENCOUNTER 2024-03-04 10:00 | Outpatient (RCR) | payer MEDICARE, SELFPAY | END 2024-03-11 10:07 | disposition home or self-care (01) | LOC: HO.CR 10:00 | PROVIDERS: PCP Internal Medicine; Visit Provider Internal Medicine | DX: Z95.5 Presence of coronary angioplasty implant and graft (principal) | CPT/HCPCS: 93798 ==

== ENCOUNTER 2024-07-30 19:38 | Outpatient (REF) | payer MEDICARE, SELFPAY ==
--- OUTSIDE RECORDS SUMMARY | 2024-02-05 09:30 | XMS_ITS ---
Author Organization [facility] Address [address] [place] [id number] Care Team Providers Care Continuity Tester Name Role Phone Ray Schofield MD Primary Care Provider Jacob Bateman Unavailable [phone] Ramesh Encounters Encounter Location Date Provider Diagnosis [address] [address] 02/05/2024 Jacob Courtney Plan Of Treatment Next Appt Details Provider Name:Jacob Courtney , 08/30/2024 01:00:00 PM, [address] [place] [address], [phone], Progress Notes * Danny CABRALES FDOB:[birth year] (79 yo M)Acc No.[id number]:02/05/2024 Progress Note Patient: Danny HOOVER Provider: Jil Courtney DPM :1945 A ge:78 Y S ex:Male Date:02/05/2024 Address:[address] [place] [id number] Pcp:Ray Schofield MD Subjective: * Chief Complaints: * [address] Ramesh. * Medical History: Objective: * Vitals: Assessment: Plan: * Treatment: * Images: * The named appointment provid er may or may not be the originator of this progress note, and it is not deemed complete until electronically signed by the appointment provider. Sign off status: Pending * Provider: Jil Courtney DPM Date: 1 04/07/2023 Generated for Rory Blanco on: 0 07/30/2024 07:42 PM EDT
--- NOTE | ~2024-07-30 | MR_ITS ---
Workstation: [id number] EXAMINATION: MR LUMBAR SPINE WITHOUT IV CONTRAST History: SPINAL STENOSIS Technique: Sagittal T1, T2 and STIR, and axial T1 and T2 weighted images of the lumbar spine were obtained per departmental protocol. Comparison: Correlation is made with plain films of the lumbar spine is 08/06/2023. Findings: The vertebral bodies maintain normal height. There is grade I spondylolisthesis of L3 on L4. There is severe degenerative disc disease at the L4-5 level with disc desiccation, loss of disc height, osteophyte formation, and endplate marrow changes. Milder changes are noted at the remaining levels. At T12-L1,there is no evidence of disc herniation, central spinal stenosis, or neural foraminal narrowing. There is mild facet and ligamentum flavum hypertrophy. At L1-2, there is a mild disc bulge. There is facet and ligamentum flavum hypertrophy without central spinal or neural foraminal stenosis. At L2-3, there is a diffuse disc bulge. There is facet osteoarthritis causing mild central spinal stenosis. There is right neural foraminal narrowing. At L3-4, there is uncovering of the intervertebral disc secondary to spondylolisthesis. There is moderate facet osteoarthritis causing moderate central spinal stenosis and bilateral neural foraminal narrowing. At L4-5, there are posterior osteophytes. There is moderate osteoarthritis of the facet joints causing bilateral neural foraminal stenosis. No central spinal stenosis. At L5-S1, there is a diffuse disc bulge. There is a superimposed small right paramedian disc herniation with extruded disc material extending superiorly, posterior to the L5 vertebral body. There is facet osteoarthritis causing bilateral neural foraminal stenosis. No central spinal stenosis. The conus terminates at the T12-L1 level and demonstrates normal signal intensity. Evaluation of the paraspinal soft tissues demonstrates a partially visualized 4.4 cm left renal cyst. MR/MR lumbar spine wo con Impression: 1. Degenerative disc disease of the lumbar spine as described. 2. Moderate central spinal stenosis and bilateral neural foraminal narrowing at L3-4 secondary to grade I spondylolisthesis and facet osteoarthritis. 2. Diffuse disc bulge at L5-S1 with a superimposed small right paramedian disc herniation with disc extrusion. 3. Mild central spinal stenosis at L2-3. 4. Bilateral neural foraminal stenosis as described. Electronically signed by: Cooper Carver MD 08/01/2024 09:52 AM EDT RP
== END 2024-07-30 19:39 | disposition home or self-care (01) ==
LOC: HO.MRI 19:38
PROVIDERS: PCP Internal Medicine; Visit Provider Internal Medicine
DX: M48.00 Spinal stenosis, site unspecified (principal)
CPT/HCPCS: 72148

== ENCOUNTER → 2024-07-30 19:50 | Outpatient (BNV) | payer MEDICARE, SELFPAY | PROVIDERS: PCP Internal Medicine; Visit Provider Radiology Diagnostic Radiology | DX: M47.816 Spondylosis without myelopathy or radiculopathy, lumbar region (principal); M51.26 Other intervertebral disc displacement, lumbar region; M48.061 Spinal stenosis, lumbar region without neurogenic claudication | CPT/HCPCS: 72148 ==

== ENCOUNTER 2024-08-25 11:15 | Outpatient (REF) | payer MEDICARE, SELFPAY ==
--- OUTSIDE RECORDS SUMMARY | 2024-02-05 09:30 | XMS_ITS ---
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 Name Role Phone Ray Schofield MD Primary Care Provider Jacob Bateman Unavailable [phone] Ramesh Encounters Encounter Location Date Provider Diagnosis [address] [id number] 02/05/2024 Jacob Courtney Plan Of Treatment Next Appt Details Provider Name:Jacob Courtney , 08/30/2024 01:00:00 PM, [address] [place] [address], [phone], Progress Notes * Danny CABRALES FDOB:[birth year] (79 yo M)Acc No.[id number]:02/05/2024 Progress Note Patient: Danny HOOVER Provider: Bowen Courtney DPM :1945 A ge:78 Y S ex:Male Date:02/05/2024 Address:[address] [place] [address] [email or web address], [id number] Pcp:Ray Schofield MD Subjective: * Chief Complaints: * [address] Ramesh. * Medical History: Objective: * Vitals: Assessment: Plan: * Treatment: * Images: * The named appointment provid er may or may not be the originator of this progress note, and it is not deemed complete until electronically signed by the appointment provider. Sign off status: Pending * Provider: Bowen Courtney DPM Date: 1 04/07/2023 Generated for Rory Blanco on: 0 08/25/2024 12:11 PM EDT
--- OUTSIDE RECORDS SUMMARY | 2024-08-25 03:30 | XMS_ITS ---
Author Organization Ray Schofield MD Address [address] [place] [id number] Care Team Providers Care Corporate Law Specialist Name Role Phone Ray Schofield Primary Care Provider Results Component Value Reference Range Notes Complete Blood Count Auto Di ff (Not yet reviewed by provider) Interpretation: Performing Lab:[facility], [address] [place] [phone] Notes/Report: White Blood Count 7.8 4.8-10.8 X10*3/uL Red Blood Count 4.93 4.60-5.80 X10*6/uL Hemoglobin 14.1 14.0-18.0 g/dl Hematocrit 42.1 42.0-52.0 % Mean Corpuscular Volume 85.4 80.0-98.0 fL Mean Corpuscular Hemoglobin 28.6 27.0-33.0 pg Mean Corpuscular HGB Conc 33.5 31.0-36.0 g/dl Red Cell Distribution Width 14.4 11.0-16.0 % Platelet Count 161 160-400 X10*3/uL Mean Platelet Volume 10.4 9.4-12.4 fL Neutrophils Percent Auto 64.5 45-73 % Imm Gran Pct Auto 0.4 0.0-0.4 % Lymphocytes Percent Auto 27.3 20-40 % Monocytes Percent Auto 5.6 2-11 % Eosinophils Percent Auto 1.7 0-4 % Basophils Percent Auto 0.5 0-2 % NRBC Pct Auto 0.0 0.0-0.2 /100WBC Neutrophils Absolute Auto 5.0 2.0-8.3 x10*3/u L Imm Gran Abs Auto 0.03 0.00-0.03 X10*3/uL Lymphocytes Absolute Auto 2.1 1.2-4.9 X10*3/u L Monocytes Absolute Auto 0.4 0.1-1.2 X10*3/uL Eosinophils Absolute Auto 0.1 0.0-0.4 X10*3/u L Basophils Absolute Auto 0.0 0.0-0.2 X10*3/uL NRBC Abs Auto 0.000 0.0-0.012 X10*3/uL REASON FOR VISIT yearly fasting labs Encounters Encounter Location Date Provider Diagnosis Ray Schofield MD [address] [place] [address] [place] [phone] 08/25/2024 Ray Schofield Blood tests for routine general physical examination Z00.00 ; Essential hypertension I10 ; Type 2 diabetes mellitus without complication E11.9 and Iron deficiency anemia, unspecified iron deficiency anemia type D50.9 Assessments Encounter Date Diagnosis (ICD Code) Assessment Notes Treatment Notes Treatment Clinical Notes Section Notes 08/25/2024 Blood tests for routine general physical examination (ICD-10 - Z00.00) 08/25/2024 Essential hypertension (ICD-10 - I10) 08/25/2024 Type 2 diabetes mellitus without complication (ICD-10 - E11.9) 08/25/2024 Iron deficiency anemia, unspecified iron deficiency anemia type (ICD-10 - D50.9) Plan Of Treatment Pending Test Test Name Order Date Complete Blood Count Auto Diff 5 Comprehensive [place]. Panel Fast IRON PROFILE 08/25/2024 Lipid Panel 08/25/2024 PSA,Total (Free>4and<10) 08/25/2024 Microalbumin, Random 08/25/2024 Hemoglobin A1c 08/25/2024 UA ClnCatch+Micro w/rflx Cult 08/25/2024 Next Appt Details Provider Name:Ray Curtis ier, 09/01/2024 09:30:00 AM, [address], [address], [place], [place], [phone], Progress Notes * Danny PERAZADOB:1945 (79 yo M)Acc No.[id number]:08/25/2024 Progress Note Patient: Danny HOOVER Provider: Jason Schofield MD :1945 A ge:79 Y S ex:Male Date:08/25/2024 Address:[address] [place], [place] [id number] Subjective: * Chief Complaints: * 1 . Yearly fasting labs. * Medical History: Objective: * Vitals: Assessment: * Assessment: 1. B lood tests for routine general physical examination - Z00.00 (Primary) 2 .?Essential hypertension - I10 3 . T ype 2 diabetes mellitus without complication - E11.9 4 . I mariaa deficiency anemia, unspecified iron deficiency anemia type - D50.9 Plan: * Treatment: 2. E ssential hypertension L AB: Complete Blood Count Auto Diff (Collection Date & Time - 08/25/2024 07:30 AM) L AB: Comprehensive [place]. Panel Fast L AB: IRON PROFILE L AB: Lipid Panel L AB: PSA,Total (Free>4and<10) L AB: Microalbumin, Random L AB: Hemoglobin A1c L AB: UA ClnCatch+Micro w/rflx Cult 3. T ype 2 diabetes mellitus without complication L AB: Complete Blood Count Auto Diff (Collection Date & Time - 08/25/2024 07:30 AM) L AB: Comprehensive [place]. Panel Fast L AB: IRON PROFILE L AB: Lipid Panel L AB: PSA,Total (Free>4and<10) L AB: Microalbumin, Random L AB: Hemoglobin A1c L AB: UA ClnCatch+Micro w/rflx Cult 4. I mariaa deficiency anemia, unspecified iron deficiency anemia type L AB: Complete Blood Count Auto Diff (Collection Date & Time - 08/25/2024 07:30 AM) L AB: Comprehensive [place]. Panel Fast L AB: IRON PROFILE L AB: Lipid Panel L AB: PSA,Total (Free>4and<10) L AB: Microalbumin, Random L AB: Hemoglobin A1c L AB: UA ClnCatch+Micro w/rflx Cult * Procedure Codes: 3 6415 VENIPUNCT, ROUTINE* * * The named appointment provid er may or may not be the originator of this progress note, and it is not deemed complete until electronically signed by the appointment provider. Sign off status: Pending * Provider: Jason Schofield MD Date: 0 08/25/2024 Generated for Rory ulrich/Cynthia/Milesitting on: 0 08/25/2024 12:11 PM EDT
[2024-08-25 11:28] LABS: MANUAL DIFF FLAG NO
[2024-08-25 12:02] LABS: Hematocrit 42.1 % (42.0-52.0); Hemoglobin 14.1 g/dl (14.0-18.0); Imm Gran Abs Auto 0.03 X10*3/uL (0.00-0.03); Imm Gran Pct Auto 0.4 % (0.0-0.4); Lymphocytes Absolute Auto 2.1 X10*3/uL (1.2-4.9); Mean Corpuscular HGB Conc 33.5 g/dl (31.0-36.0); Mean Corpuscular Hemoglobin 28.6 pg (27.0-33.0); Mean Corpuscular Volume 85.4 fL (80.0-98.0); NRBC Abs Auto 0.000 X10*3/uL (0.0-0.012); NRBC Pct Auto 0.0 /100WBC (0.0-0.2); Platelet Count 161 X10*3/uL (160-400); Red Blood Count 4.93 X10*6/uL (4.60-5.80); White Blood Count 7.8 X10*3/uL (4.8-10.8)
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
[2024-08-25 12:13] LABS: Appearance Urine Clear; Glucose Urine UA Negative (Negative); PH 7.0 (5.0-9.0); Specific Gravity - Urine 1.020 (1.005-1.025)
[2024-08-25 12:16] LABS: Microalbum/Creatinine Ratio Ur 4.4 ug/mg cr (<30)
[2024-08-25 12:18] LABS: Alanine Aminotransferase 13 U/L (0-40); Albumin Level 4.3 g/dL (3.5-5.0); Alkaline Phosphatase 65 U/L (39-117); Anion Gap 11 (12-20); Aspartate Amino Transferase 21 U/L (5-37); Blood Urea Nitrogen 11 mg/dL (9-16); Calcium 9.2 mg/dL (8.4-10.2); Carbon Dioxide 26 mmol/L (22-29); Chloride 108 mmol/L (96-108); Cholesterol 94 mg/dL (<200); Estimated Glomerular Filt Rate > 60; HDL Cholesterol 46 mg/dL (>40); Iron 71 mcg/dL (45-160); Percent Iron Saturation 31 % (15-50); Potassium 4.0 mmol/L (3.3-5.1); Sodium 141 mmol/L (135-145); Total Iron Binding Capacity 231 mcg/dL (228-428); Total Protein 7.0 g/dL (6.5-8.0); Triglycerides 50 mg/dL (<150); Unsaturated Iron Binding 160 ug/dL
[2024-08-25 12:22] LABS: Hemoglobin A1C 206.6284 umol/L; Total Hemoglobin (HGBA1C) 3677.1305 umol/L
[2024-08-25 12:36] LABS: PSA,Total (Free>4and<10) 0.57 ng/mL (0.00-4.00)
== END 2024-08-25 11:16 | disposition home or self-care (01) ==
LOC: HO.LNP 11:15
PROVIDERS: Visit Provider Internal Medicine
DX: Z00.00 Encounter for general adult medical examination without abnormal findings (principal); I10 Essential (primary) hypertension; E11.9 Type 2 diabetes mellitus without complications; D50.9 Iron deficiency anemia, unspecified
CPT/HCPCS: 80053; 80061; 81001; 82043; 82570; 83036; 83540; 84153; 85025